=== PATIENT | male | born 1995 | race Caucasian/White ===

== ENCOUNTER 2017-12-16 10:44 | Inpatient (IN) | payer OTHER ==
[2017-12-16 11:52] VITALS: BMI 25.7
--- NOTE | 2017-12-16 13:09 | HP ---
COWS - Scale Resting Pulse: 1= [place] 81-100 Sweatin= Chills/Flushing Restless Observation: 1= Difficult to Sit Still Pupil Size: 1= Pupils >than Normal Bone or Joint Aches: 2= Severe Diffuse Aches Runny Nose/ Eye Tearin= Runny Nose/Eyes GI Upset > 30mins: 2= Nausea/Diarrhea Tremor Observation: 2= Slight Tremor Visible Yawning Observation: 2= >3x During Session Anxiety or Irritability: 2=Irritable/Anxious Goose Flesh Skin: 0=Smooth Skin COWS Score: 16 Admission ROS S - HPI Chief Complaint: withdrawal sx opioid Allergies/Adverse Reactions: Allergies Allergy/AdvReac Type Severity Reaction Status Date / Time No Known Allergies Allergy Verified 12/16/17 13:13 History of Present Illness: 22 years old male first detox admission for opioid nicotine dependence has anxiety and is admitted to detox Exam Limitations: No Limitations - Ebola screening Have you traveled outside of the country in the last 21 days: No Have you had contact with anyone from an Ebola affected area: No Have you been sick,other than usual withdrawal symptoms: No Do you have a fever: No - Review of Systems Constitutional: Changes in sleep, Weight Stable EENT: reports: Nose Congestion Respiratory: reports: No Symptoms reported Cardiac: reports: No Symptoms Reported GI: reports: Nausea, Poor Fluid Intake, Abdominal cramping : reports: No Symptoms Reported Musculoskeletal: reports: Back Pain, Joint Pain, Neck Pain Integumentary: reports: No Symptoms Reported Neuro: reports: Tremors Endocrine: reports: No Symptoms Reported Hematology: reports: No Symptoms Reported Psychiatric: reports: Judgement Intact, Orientated x3, Depressed Other Systems: Reviewed and Negative Patient History - Patient Medical History Hx Anemia: No Hx Asthma: No Hx Chronic Obstructive Pulmonary Disease (COPD): No Hx Cancer: No Hx Cardiac Disorders: No Hx Congestive Heart Failure: No Hx Hypertension: No Hx Hypercholesterolemia: No Hx Pacemaker: No HX Cerebrovascular Accident: No Hx Seizures: No Hx Dementia: No Hx Diabetes: No Hx Gastrointestinal Disorders: No Hx Liver Disease: No Hx Genitourinary Disorders: No Hx Sexually Transmitted Disorders: No Hx Renal Disease (ESRD): No Hx Thyroid Disease: No Hx Human Immunodeficiency Virus (HIV): No Hx Hepatitis C: No Hx Depression: Yes Hx Suicide Attempt: No Hx Bipolar Disorder: No Hx Schizophrenia: No - Patient Surgical History Past Surgical History: No - PPD History Previous Implant?: Yes Documented Results: Negative w/o proof Implanted On Prior R Admission?: No PPD to be Administered?: Yes - Smoking Cessation Smoking history: Current every day smoker Have you smoked in the past 12 months: Yes Aproximately how many cigarettes per day: 5 Cigars Per Day: 0 Hx Chewing Tobacco Use: No Initiated information on smoking cessation: Yes 'Breaking Loose' booklet given: 12/16/17 - Substance & Tx. History Hx Alcohol Use: No Hx Substance Use: Yes Substance Use Type: Cocaine, Marijuana, Opiates Hx Substance Use Treatment: No (first detox) Admission Physical Exam [facility] - Vital Signs Vital Signs: Vital Signs - 24 hr 12/16/17 11:49 Temperature 97.6 F Pulse Rate 90 Respiratory 20 Rate Blood Pressure 126/86 - Physical General Appearance: Yes: Appropriately Dressed, Moderate Distress, Tremorous, Irritable, Sweating, Anxious HEENTM: Yes: Hearing grossly Normal, Normocephalic, Normal Voice Respiratory: Yes: Chest Non-Tender, Lungs Clear, Normal Breath Sounds, No Respiratory Distress, No Accessory Muscle Use Neck: Yes: Supple, Trachea in good position Breast: Yes: Breasts Symetrical Cardiology: Yes: Regular Rhythm, S1, S2, Tachycardia Abdominal: Yes: Non Tender, Flat, Increased Bowel Sounds Genitourinary: Yes: Within Normal Limits Back: Yes: Normal Inspection Musculoskeletal: Yes: full range of Motion, Gait Steady, Back pain, Muscle Pain Extremities: Yes: Normal Inspection, Normal Range of Motion, Non-Tender, Tremors Neurological: Yes: Fully Oriented, Alert, Motor Strength 5/5, Normal Response, Depressed Affect Integumentary: Yes: Warm Lymphatic: Yes: Within Normal Limits - Diagnostic (1) Opioid dependence with withdrawal Current Visit: Yes Status: Acute (2) Nicotine dependence Current Visit: Yes Status: Acute Qualifiers: Nicotine product type: cigarettes Substance use status: in withdrawal Qualified Code(s): F17.213 - Nicotine dependence, cigarettes, with withdrawal (3) Anxiety about health Current Visit: Yes Status: Suspected BHS Breath Alcohol Content Breath Alcohol Content: 0 Urine Drug Screen - Results Drug Screen Negative: No Urine Drug Screen Results: THC-Marijuana, ADELINA-Cocaine, OPI-Opiates
[2017-12-16] MEDS ORDERED: MAGNESIUM CITRATE 300 ML BOTTLE PO PRN (13:21)
[2017-12-16] MEDS ORDERED: MAG HYDROX/AL HYDROX/SIMETH 30 ML UNIT-DOSE CUP PO PRN (13:21)
[2017-12-16] MEDS ORDERED: ACETAMINOPHEN 325 MG TABLET (FP) PO PRN (13:21)
[2017-12-16] MEDS ORDERED: MENTHOL/PHENOL 1 EACH UD MM PRN (13:21)
[2017-12-16] MEDS ORDERED: MAGNESIUM HYDROX 2400MG/30ML ORAL SUSPENSION 30 ML CUP PO PRN (13:21)
[2017-12-16] MEDS ORDERED: LOPERAMIDE HCL 2 MG CAPSULE PO PRN (13:21)
[2017-12-16] MEDS ORDERED: IBUPROFEN 400 MG TABLET (FP) PO PRN (13:21)
[2017-12-16] MEDS ORDERED: P-EPHED 60MG/TRIPROLIDI 2.5MG TABLET PO PRN (13:21)
[2017-12-16] MEDS ORDERED: guaiFENesin/D-METHORPHAN HB 10 ML UNIT-DOSE CUPS PO PRN (13:21)
[2017-12-16] MEDS ORDERED: METHADONE HCL 10 MG TABLET (FOR DETOX USE ONLY) PO ONE ×2 (14:45→23:00)
[2017-12-16] MEDS: diazePAM 5 MG TABLET PO PRN ×2 (14:48→20:01)
[2017-12-16] MEDS: NICOTINE 14 MG/24 HOURS TOPICAL PATCH TD SCH (14:48)
--- NOTE | 2017-12-16 17:37 | CONSULT ---
[facility] Psychiatric Consult - Data Date of interview: 12/16/17 Admission source: [facility] Identifying data: First admission to [facility] for this 22 y/o male seeking detox treatment on for opiod,cocaine and cannabis dependence.Patient is ,a father of two,homeless,unemployed deprived of any source of income and supported by relatives. Substance Abuse History: Confirmed by patient in this interview.Mr Robin reports continuous use of marihuana,cocaine and opiates. [facility] report : Smoking history: Current every day smoker. Have you smoked in the past 12 months: Yes. Aproximately how many cigarettes per day: 5. Cigars Per Day: 0. Hx Chewing Tobacco Use: No. Initiated information on smoking cessation: Yes. 'Breaking Loose' booklet given: 12/16/17. - Substance & Tx. History. Hx Alcohol Use: No. Hx Substance Use: Yes. Substance Use Type: Cocaine, Marijuana, Opiates. Hx Substance Use Treatment: No (first detox) Medical History: Patient endorses good general health. Psychiatric History: Patient denies. Physical/Sexual Abuse/Trauma History: Patient denies. Additional Comment: Urine Drug Screen Results: THC-Marijuana, ADELINA-Cocaine, OPI- Opiates.Noted. Mental Status Exam - Mental Status Exam Alert and Oriented to: Time, Place, Person Cognitive Function: Good Patient Appearance: Well Groomed Mood: Withdrawn, Anxious, Hopeful Affect: Mood Congruent Patient Behavior: Fatigued, Cooperative Speech Pattern: Clear (azeri speaking) Voice Loudness: Normal Thought Process: Intact, Goal Oriented Thought Disorder: Not Present Hallucinations: Denies Suicidal Ideation: Denies Homicidal Ideation: Denies Insight/Judgement: Poor Sleep: Poorly, Difficulty falling asleep Appetite: Good Muscle strength/Tone: Normal Gait/Station: Normal Psychiatric Findings - Problem List (Barre 1, 2,3) (1) Opioid dependence with withdrawal Current Visit: Yes Status: Acute (2) Cocaine dependence Current Visit: Yes Status: Acute Qualifiers: Substance use status: uncomplicated Qualified Code(s): F14.20 - Cocaine dependence, uncomplicated (3) Cannabis dependence Current Visit: Yes Status: Acute (4) Nicotine dependence Current Visit: Yes Status: Acute Qualifiers: Nicotine product type: cigarettes Substance use status: in withdrawal Qualified Code(s): F17.213 - Nicotine dependence, cigarettes, with withdrawal (5) Insomnia Current Visit: Yes Status: Acute Qualifiers: Insomnia type: unspecified Qualified Code(s): G47.00 - Insomnia, unspecified - Initial Treatment Plan Initial Treatment Plan: Psychoeducation.Sleep hygiene.Detoxification in progress.Ambien 10 mg po hs prn.Side effects/benefits discussed with patient.Consent (verbal) given.Observation.
[2017-12-16 18:35] LABS: URINE APPEARANCE CLEAR; URINE BILIRUBIN NEGATIVE (<2.0 mg/dL); URINE COLOR DKYELLOW; URINE GLUCOSE (UA) NEGATIVE (NEGATIVE); URINE KETONE NEGATIVE (NEGATIVE); URINE LEUK ESTERASE NEGATIVE (NEGATIVE); URINE NITRITE NEGATIVE (NEGATIVE); URINE PROTEIN NEGATIVE (NEGATIVE); URINE UROBILINOGEN NEGATIVE mg/dL (0.2-1.0)
[2017-12-16] MEDS: THIAMINE HCL 100 MG TABLET (FP) PO SCH (22:01)
[2017-12-16] MEDS: MELATONIN 5 MG TABLETS PO PRN (22:02)
[2017-12-17] MEDS: diazePAM 5 MG TABLET PO PRN ×5 (06:01→23:39)
[2017-12-17 09:56] LABS: HEMATOCRIT 42.8 % (35.4-49); HEMOGLOBIN 14.1 GM/dL (11.7-16.9); MCHC 32.9 g/dl (32.0-35.9); MEAN PLT VOLUME 8.9 fl (7.5-11.1); PLATELET COUNT 255 K/MM3 (134-434); RBC 5.04 M/mm3 (4.00-5.60); WHITE BLOOD COUNT 7.6 K/mm3 (4.0-10.0)
[2017-12-17] MEDS ORDERED: METHADONE HCL 10 MG TABLET (FOR DETOX USE ONLY) PO ONE (10:00)
[2017-12-17] MEDS: PRENATAL VITAMINS W/ FOLIC ACID TABLET (FP) PO SCH (10:02)
[2017-12-17] MEDS: NICOTINE 14 MG/24 HOURS TOPICAL PATCH TD SCH (10:02)
--- NOTE | 2017-12-17 10:11 | PN ---
S COWS - Scale Resting Pulse: 1= [place] 81-100 Sweatin= Chills/Flushing Restless Observation: 3= Extraneous Movement Pupil Size: 0= Normal to Room Light Bone or Joint Aches: 4=Acute Joint/Muscle Pain Runny Nose/ Eye Tearin= None GI Upset > 30mins: 0= None Tremor Observation of Outstretched Hands: 1= Tremor Exline, Not Seen Yawning Observation: 1= 1-2x During Session Anxiety or Irritability: 1=Feels Anxious/Irritable Goose Flesh Skin: 0=Smooth Skin COWS Score: 12 S Progress Note (SOAP) Subjective: ANXIETY,SWEATS,FATIGUE. Objective: 12/17/17 10:11 Vital Signs Temperature 96.6 F L 12/17/17 09:12 Pulse Rate 89 12/17/17 09:12 Respiratory Rate 16 12/17/17 09:12 Blood Pressure 114/74 12/17/17 09:12 O2 Sat by Pulse Oximetry (%) Laboratory Last Values WBC 7.6 K/mm3 (4.0-10.0) 12/17/17 06:00 RBC 5.04 M/mm3 (4.00-5.60) 12/17/17 06:00 Hgb 14.1 GM/dL (11.7-16.9) 12/17/17 06:00 Hct 42.8 % (35.4-49) 12/17/17 06:00 MCV 85.0 fl (80-96) 12/17/17 06:00 MCH 28.0 pg (25.7-33.7) 12/17/17 06:00 MCHC 32.9 g/dl (32.0-35.9) 12/17/17 06:00 RDW 15.0 % (11.9-15.9) 12/17/17 06:00 Plt Count 255 K/MM3 (134-434) 12/17/17 06:00 MPV 8.9 fl (7.5-11.1) 12/17/17 06:00 Urine Color Dkyellow 12/16/17 15:00 Urine Appearance Clear 12/16/17 15:00 Urine pH 5.0 (5.0-8.0) 12/16/17 15:00 Ur Specific [place] 1.021 (1.001-1.035) 12/16/17 15:00 Urine Protein Negative (NEGATIVE) 12/16/17 15:00 Urine Glucose (UA) Negative (NEGATIVE) 12/16/17 15:00 Urine Ketones Negative (NEGATIVE) 12/16/17 15:00 Urine Blood Negative (NEGATIVE) 12/16/17 15:00 Urine Nitrite Negative (NEGATIVE) 12/16/17 15:00 Urine Bilirubin Negative (<2.0 mg/dL) 12/16/17 15:00 Urine Urobilinogen Negative mg/dL (0.2-1.0) 12/16/17 15:00 Ur Leukocyte Esterase Negative (NEGATIVE) 12/16/17 15:00 Assessment: 12/17/17 10:11 WITHDRAWAL SX Plan: CONTINUE DETOX
[2017-12-17 10:39] LABS: ANION GAP 10 (8-16); BLOOD UREA NITROGEN 9 mg/dL (7-18); CALCIUM 9.4 mg/dL (8.5-10.1); CHLORIDE 103 mmol/L (98-107); CO2 29 mmol/L (21-32); GLUCOSE,RANDOM 83 mg/dL (74-106); POTASSIUM 4.4 mmol/L (3.5-5.1); SGOT/AST 36 U/L (15-37); SGPT/ALT 36 U/L (12-78); SODIUM 142 mmol/L (136-145)
[2017-12-17 10:40] LABS: ALK PHOS 85 U/L (45-117); BILIRUBIN,TOTAL 0.5 mg/dL (0.2-1.0); TOT PROT 7.2 g/dl (6.4-8.2)
--- NOTE | 2017-12-17 11:32 | EKG ---
Test Reason : Blood Pressure : / mmHG Vent. Rate : 081 BPM Atrial Rate : 081 BPM P-R Int : 158 ms QRS Dur : 090 ms QT Int : 366 ms P-R-T Axes : 072 065 053 degrees QTc Int : 425 ms NORMAL SINUS RHYTHM WITH SINUS ARRHYTHMIA NORMAL ECG NO PREVIOUS ECGS AVAILABLE Confirmed by THADDEUS MORATAYA, RENÉ ([id number]) on 12/17/2017 11:32:00 AM Referred By: Confirmed By:RENÉ TRAVIS MD
[2017-12-17] MEDS: THIAMINE HCL 100 MG TABLET (FP) PO SCH (22:11)
[2017-12-18] MEDS: PRENATAL VITAMINS W/ FOLIC ACID TABLET (FP) PO SCH (09:39)
[2017-12-18] MEDS: diazePAM 5 MG TABLET PO PRN ×3 (09:39→18:54)
[2017-12-18] MEDS: NICOTINE 14 MG/24 HOURS TOPICAL PATCH TD SCH (09:40)
[2017-12-18] MEDS ORDERED: METHADONE HCL 5 MG TABLET (FOR DETOX USE ONLY) PO ONE (10:00)
--- NOTE | 2017-12-18 10:13 | PN ---
BHS COWS - Scale Resting Pulse: 1= [place] 81-100 Sweatin=Flushed/Facial Moisture Restless Observation: 3= Extraneous Movement Pupil Size: 2= Moderately Dilated Bone or Joint Aches: 0= None Runny Nose/ Eye Tearin= None GI Upset > 30mins: 0= None Tremor Observation of Outstretched Hands: 2= Slight Tremor Visible Yawning Observation: 0= None Anxiety or Irritability: 1=Feels Anxious/Irritable Goose Flesh Skin: 0=Smooth Skin COWS Score: 11 BHS Progress Note (SOAP) Subjective: SLIGHT ANXIETY,SWEATS,FATIGUE. DETOX PROCEEDING WELL. PT SEEN WHILE LYING IN BED, NAD. Objective: 12/18/17 10:15 Vital Signs Temperature 95.3 F L 12/18/17 09:51 Pulse Rate 89 12/18/17 09:51 Respiratory Rate 20 12/18/17 09:51 Blood Pressure 105/66 12/18/17 09:51 O2 Sat by Pulse Oximetry (%) Laboratory Tests 12/16/17 12/16/17 12/17/17 06:00 15:00 06:00 WBC 7.6 RBC 5.04 Hgb 14.1 Hct 42.8 MCV 85.0 MCH 28.0 MCHC 32.9 RDW 15.0 Plt Count 255 MPV 8.9 Sodium Potassium Chloride Carbon Dioxide Anion Gap BUN Creatinine Creat Clearance w eGFR Random Glucose Calcium Total Bilirubin AST ALT Alkaline Phosphatase Total Protein Albumin Urine Color Dkyellow Urine Appearance Clear Urine pH 5.0 Ur Specific [place] 1.021 Urine Protein Negative Urine Glucose (UA) Negative Urine Ketones Negative Urine Blood Negative Urine Nitrite Negative Urine Bilirubin Negative Urine Urobilinogen Negative Ur Leukocyte Esterase Negative RPR Titer HIV 1&2 Antibody Screen Negative HIV P24 Antigen Negative 12/17/17 12/17/17 06:00 06:00 WBC RBC Hgb Hct MCV MCH MCHC RDW Plt Count MPV Sodium 142 Potassium 4.4 Chloride 103 Carbon Dioxide 29 Anion Gap 10 BUN 9 Creatinine 1.0 Creat Clearance w eGFR > 60 Random Glucose 83 Calcium 9.4 Total Bilirubin 0.5 AST 36 ALT 36 Alkaline Phosphatase 85 Total Protein 7.2 Albumin 4.0 Urine Color Urine Appearance Urine pH Ur Specific [place] Urine Protein Urine Glucose (UA) Urine Ketones Urine Blood Urine Nitrite Urine Bilirubin Urine Urobilinogen Ur Leukocyte Esterase RPR Titer Nonreactive HIV 1&2 Antibody Screen HIV P24 Antigen Assessment: 12/18/17 10:16 WITHDRAWAL SX Plan: CONTINUE DETOX
[2017-12-18] MEDS: NICOTINE POLACRILEX 2 MG GUM BC PRN (19:10)
[2017-12-18] MEDS: THIAMINE HCL 100 MG TABLET (FP) PO SCH (22:05)
[2017-12-18] MEDS: MELATONIN 5 MG TABLETS PO PRN (22:05)
[2017-12-19] MEDS: diazePAM 5 MG TABLET PO PRN ×3 (00:13→09:30)
[2017-12-19] MEDS ORDERED: METHADONE HCL 5 MG TABLET (FOR DETOX USE ONLY) PO ONE (10:00)
[2017-12-19] MEDS: PRENATAL VITAMINS W/ FOLIC ACID TABLET (FP) PO SCH (10:06)
[2017-12-19] MEDS: NICOTINE 14 MG/24 HOURS TOPICAL PATCH TD SCH (10:06)
--- NOTE | 2017-12-19 13:24 | PN ---
BHS Progress Note (SOAP) Subjective: Sweating, Fatigue, Anxious. Objective: PATIENT A & O X 3, OBSERVED AMBULATING ON UNIT. NO ACUTE DISTRESS. 12/19/17 13:23 Vital Signs Temperature 96.6 F L 12/19/17 09:13 Pulse Rate 83 12/19/17 09:13 Respiratory Rate 18 12/19/17 09:13 Blood Pressure 117/74 12/19/17 09:13 O2 Sat by Pulse Oximetry (%) Laboratory Tests 12/16/17 12/16/17 12/17/17 06:00 15:00 06:00 WBC 7.6 RBC 5.04 Hgb 14.1 Hct 42.8 MCV 85.0 MCH 28.0 MCHC 32.9 RDW 15.0 Plt Count 255 MPV 8.9 Sodium Potassium Chloride Carbon Dioxide Anion Gap BUN Creatinine Creat Clearance w eGFR Random Glucose Calcium Total Bilirubin AST ALT Alkaline Phosphatase Total Protein Albumin Urine Color Dkyellow Urine Appearance Clear Urine pH 5.0 Ur Specific [place] 1.021 Urine Protein Negative Urine Glucose (UA) Negative Urine Ketones Negative Urine Blood Negative Urine Nitrite Negative Urine Bilirubin Negative Urine Urobilinogen Negative Ur Leukocyte Esterase Negative RPR Titer HIV 1&2 Antibody Screen Negative HIV P24 Antigen Negative 12/17/17 12/17/17 06:00 06:00 WBC RBC Hgb Hct MCV MCH MCHC RDW Plt Count MPV Sodium 142 Potassium 4.4 Chloride 103 Carbon Dioxide 29 Anion Gap 10 BUN 9 Creatinine 1.0 Creat Clearance w eGFR > 60 Random Glucose 83 Calcium 9.4 Total Bilirubin 0.5 AST 36 ALT 36 Alkaline Phosphatase 85 Total Protein 7.2 Albumin 4.0 Urine Color Urine Appearance Urine pH Ur Specific [place] Urine Protein Urine Glucose (UA) Urine Ketones Urine Blood Urine Nitrite Urine Bilirubin Urine Urobilinogen Ur Leukocyte Esterase RPR Titer Nonreactive HIV 1&2 Antibody Screen HIV P24 Antigen LABS NOTED. Assessment: 12/19/17 13:24 WITHDRAWAL SYMPTOMS. Plan: CONTINUE DETOX.
[2017-12-19] MEDS ORDERED: ONDANSETRON 4 MG TABLET PO ONE (17:40)
--- NOTE | 2017-12-19 17:42 | PN ---
MARCIA Progress Note Note: Patient reportedly with one episode of nausea and vomiting, zofran 4mg PO x 1 dose ordered.
[2017-12-19] MEDS ORDERED: ONDANSETRON *ODT* 4 MG TABLET SL ONE (18:00)
[2017-12-19] MEDS: THIAMINE HCL 100 MG TABLET (FP) PO SCH (21:59)
[2017-12-19] MEDS: ZOLPIDEM TARTRATE 5 MG TABLET PO PRN (22:00)
[2017-12-19] MEDS: MELATONIN 5 MG TABLETS PO PRN (23:32)
[2017-12-20] MEDS ORDERED: METHADONE HCL 10 MG TABLET (FOR DETOX USE ONLY) PO ONE (10:00)
[2017-12-20] MEDS: PRENATAL VITAMINS W/ FOLIC ACID TABLET (FP) PO SCH (10:04)
[2017-12-20] MEDS: NICOTINE 14 MG/24 HOURS TOPICAL PATCH TD SCH (10:04)
--- NOTE | 2017-12-20 11:16 | PN ---
BHS Progress Note (SOAP) Subjective: ANXIETY,SWEATS,INTERMITTENT SLEEP. Objective: 12/20/17 11:15 Vital Signs 12/20/17 12/20/17 12/20/17 03:29 06:21 06:30 Temperature 96.8 F L Pulse Rate 73 Respiratory 18 18 18 Rate Blood Pressure 102/59 12/20/17 09:18 Temperature 96.5 F L Pulse Rate 76 Respiratory 18 Rate Blood Pressure 112/78 Laboratory Tests 12/16/17 12/16/17 12/17/17 06:00 15:00 06:00 WBC 7.6 RBC 5.04 Hgb 14.1 Hct 42.8 MCV 85.0 MCH 28.0 MCHC 32.9 RDW 15.0 Plt Count 255 MPV 8.9 Sodium Potassium Chloride Carbon Dioxide Anion Gap BUN Creatinine Creat Clearance w eGFR Random Glucose Calcium Total Bilirubin AST ALT Alkaline Phosphatase Total Protein Albumin Urine Color Dkyellow Urine Appearance Clear Urine pH 5.0 Ur Specific [place] 1.021 Urine Protein Negative Urine Glucose (UA) Negative Urine Ketones Negative Urine Blood Negative Urine Nitrite Negative Urine Bilirubin Negative Urine Urobilinogen Negative Ur Leukocyte Esterase Negative RPR Titer HIV 1&2 Antibody Screen Negative HIV P24 Antigen Negative 12/17/17 12/17/17 06:00 06:00 WBC RBC Hgb Hct MCV MCH MCHC RDW Plt Count MPV Sodium 142 Potassium 4.4 Chloride 103 Carbon Dioxide 29 Anion Gap 10 BUN 9 Creatinine 1.0 Creat Clearance w eGFR > 60 Random Glucose 83 Calcium 9.4 Total Bilirubin 0.5 AST 36 ALT 36 Alkaline Phosphatase 85 Total Protein 7.2 Albumin 4.0 Urine Color Urine Appearance Urine pH Ur Specific [place] Urine Protein Urine Glucose (UA) Urine Ketones Urine Blood Urine Nitrite Urine Bilirubin Urine Urobilinogen Ur Leukocyte Esterase RPR Titer Nonreactive HIV 1&2 Antibody Screen HIV P24 Antigen Assessment: 12/20/17 11:15 WITHDRAWAL SX Plan: CONTINUE DETOX
[2017-12-20] MEDS ORDERED: hydrOXYzine PAMOATE 50 MG CAPSULE (FP) PO PRN (12:00)
[2017-12-20] MEDS: ZOLPIDEM TARTRATE 5 MG TABLET PO PRN (22:07)
[2017-12-20] MEDS: THIAMINE HCL 100 MG TABLET (FP) PO SCH (22:07)
[2017-12-20] MEDS: NICOTINE POLACRILEX 2 MG GUM BC PRN (22:48)
[2017-12-21 05:58] VITALS: TEMP 96.1
[2017-12-21] MEDS ORDERED: METHADONE HCL 5 MG TABLET (FOR DETOX USE ONLY) PO ONE (06:00)
[2017-12-21 09:04] VITALS: BP 123/81; PULSE 95
[2017-12-21] MEDS: PRENATAL VITAMINS W/ FOLIC ACID TABLET (FP) PO SCH (10:10)
[2017-12-21] MEDS: NICOTINE 14 MG/24 HOURS TOPICAL PATCH TD SCH (10:10)
--- NOTE | 2017-12-21 10:54 | PN ---
S Progress Note (SOAP) Subjective: Denies any complaints States "I feel good" Objective: 12/21/17 10:53 A & O x 3 Gait steady, not in distress Vital Signs Temperature 96.1 F L 12/21/17 09:03 Pulse Rate 95 H 12/21/17 09:03 Respiratory Rate 20 12/21/17 09:03 Blood Pressure 123/81 12/21/17 09:03 O2 Sat by Pulse Oximetry (%) Assessment: 12/21/17 10:55 Detox successfully completed Plan: For discharge
--- NOTE | 2017-12-21 11:04 | DS ---
[facility] Detox Discharge Summary Admission Date: 12/16/17 Discharge Date: 12/21/17 - History Present History: Opioid Dependence Additional Comments: Pt for discharge Will do aftercare at [facility] - Physical Exam Results Vital Signs: Vital Signs Temperature 96.1 F L 12/21/17 09:03 Pulse Rate 95 H 12/21/17 09:03 Respiratory Rate 20 12/21/17 09:03 Blood Pressure 123/81 12/21/17 09:03 O2 Sat by Pulse Oximetry (%) Pertinent Admission Physical Exam Findings: Withdrawal sx - Treatment Hospital Course: Detox Protocol Followed, Detoxed Safely, Responded well, Discharged Condition Good, Rehab Referral Accepted Patient has Accepted a Rehab Referral to: [facility] - Medication Discharge Medications: Ambulatory Orders NK [No Known Home Medication] 12/16/17 - Diagnosis (1) Opioid dependence with withdrawal Current Visit: Yes Status: Acute (2) Nicotine dependence Current Visit: Yes Status: Acute Qualifiers: Nicotine product type: cigarettes Substance use status: in withdrawal Qualified Code(s): F17.213 - Nicotine dependence, cigarettes, with withdrawal (3) Cannabis dependence Current Visit: Yes Status: Acute (4) Cocaine dependence Current Visit: Yes Status: Acute Qualifiers: Substance use status: uncomplicated Qualified Code(s): F14.20 - Cocaine dependence, uncomplicated (5) Insomnia Current Visit: Yes Status: Acute Qualifiers: Insomnia type: unspecified Qualified Code(s): G47.00 - Insomnia, unspecified - AMA Did Patient Leave Against Medical Advice: No
== END 2017-12-21 12:00 | disposition home or self-care (01) | DRG 774 ==
LOC: YASAS 10:44 → Y3N 14:14
PROVIDERS: ADMIT Internal Medicine; ATTEND Internal Medicine
PROC: HZ2ZZZZ Detoxification Services for Substance Abuse Treatment (ICD-10-PCS; principal; 2017-12-16)
DX: F10.230 Alcohol dependence with withdrawal, uncomplicated (principal); F14.20 Cocaine dependence, uncomplicated; F12.20 Cannabis dependence, uncomplicated; F17.210 Nicotine dependence, cigarettes, uncomplicated; F32.9 Major depressive disorder, single episode, unspecified; F06.4 Anxiety disorder due to known physiological condition; G47.00 Insomnia, unspecified
CPT/HCPCS: 36415; 80053; 81003; 85027; 86593; 87389; 93005; 93010; Q0162

== ENCOUNTER 2018-10-16 10:35 | Inpatient (IN) | payer OTHER ==
[2018-10-16 11:15] VITALS: BMI 21.4
--- NOTE | 2018-10-16 11:16 | HP ---
COWS - Scale Resting Pulse: 2= [place] 101-120 Sweatin= Chills/Flushing Restless Observation: 3= Extraneous Movement Pupil Size: 1= Pupils >than Normal Bone or Joint Aches: 2= Severe Diffuse Aches Runny Nose/ Eye Tearin= Runny Nose/Eyes GI Upset > 30mins: 3= Vomiting/Diarrhea Tremor Observation: 2= Slight Tremor Visible Yawning Observation: 1= 1-2x During Session Anxiety or Irritability: 2=Irritable/Anxious Goose Flesh Skin: 0=Smooth Skin COWS Score: 19 CIWA Score - Admission Criteria OASAS Guidelines: Admission for Medically Managed Detox: Requires at least one of the followin. CIWA greater than 12 2. Seizures within the past 24 hours 3. Delirium tremens within the past 24 hours 4. Hallucinations within the past 24 hours 5. Acute intervention needed for co occurring medical disorder 6. Acute intervention needed for co occurring psychiatric disorder 7. Severe withdrawal that cannot be handled at a lower level of care (continued vomiting, continued diarrhea, abnormal vital signs) requiring intravenous medication and/or fluids 8. Admission ROS S - HPI Chief Complaint: i need help to stop using heroin and crack Allergies/Adverse Reactions: Allergies Allergy/AdvReac Type Severity Reaction Status Date / Time No Known Allergies Allergy Verified 10/16/18 11:47 History of Present Illness: this 22 years old male with heroin and crack dependence seeking detox, withdrawal symptom,had previous detox before, last admission [facility] to 12/21/17 nicotine dependence 1 pack no significant period of sobriety Exam Limitations: No Limitations - Ebola screening Have you traveled outside of the country in the last 21 days: No (N) Have you had contact with anyone from an Ebola affected area: No Do you have a fever: No - Review of Systems Constitutional: Chills, Loss of Appetite, Malaise, Night Sweats, Changes in sleep, Weakness EENT: reports: Tearing, Nose Congestion Respiratory: reports: No Symptoms reported Cardiac: reports: Palpitations GI: reports: Nausea, Poor Appetite, Vomiting, Abdominal cramping : reports: No Symptoms Reported Musculoskeletal: reports: Back Pain, Joint Pain, Joint Stiffness Integumentary: reports: Dryness Neuro: reports: Headache, Tremors Endocrine: reports: No Symptoms Reported Hematology: reports: No Symptoms Reported Psychiatric: reports: No Sypmtoms Reported, Judgement Intact, Mood/Affect Appropiate, Orientated x3 Other Systems: Reviewed and Negative Patient History - Patient Medical History Hx Anemia: No Hx Asthma: No Hx Chronic Obstructive Pulmonary Disease (COPD): No Hx Cancer: No Hx Cardiac Disorders: No Hx Congestive Heart Failure: No Hx Hypertension: No Hx Hypercholesterolemia: No Hx Pacemaker: No HX Cerebrovascular Accident: No Hx Seizures: No Hx Dementia: No Hx Diabetes: No Hx Gastrointestinal Disorders: No Hx Liver Disease: No Hx Genitourinary Disorders: No Hx Sexually Transmitted Disorders: No Hx Renal Disease (ESRD): No Hx Thyroid Disease: No Hx Human Immunodeficiency Virus (HIV): No (last 2018 negative) Hx Hepatitis C: No Hx Depression: Yes Hx Suicide Attempt: No Hx Bipolar Disorder: No Hx Schizophrenia: No Other Medical History: no sucicidal,no hmicidal - Patient Surgical History Past Surgical History: No Hx Neurologic Surgery: No Hx Cataract Extraction: No Hx Cardiac Surgery: No Hx Lung Surgery: No Hx Breast Surgery: No Hx Breast Biopsy: No Hx Abdominal Surgery: No Hx Appendectomy: No Hx Cholecystectomy: No Hx Genitourinary Surgery: No Hx Section: No Hx Orthopedic Surgery: No Anesthesia Reaction: No - PPD History Previous Implant?: Yes Documented Results: Negative w/proof Date: 12/18/17 Results: 0 mm PPD to be Administered?: No - Smoking Cessation Smoking history: Current every day smoker Have you smoked in the past 12 months: Yes Aproximately how many cigarettes per day: 20 Cigars Per Day: 0 Hx Chewing Tobacco Use: No Initiated information on smoking cessation: Yes 'Breaking Loose' booklet given: 10/16/18 - Substance & Tx. History Hx Alcohol Use: No Hx Substance Use: Yes Substance Use Type: Cocaine, Heroin Hx Substance Use Treatment: Yes ([facility] to 12/21/17) - Substances Abused Heroin Route: Inhalation Frequency: Daily Amount used: 20 bags Age of first use: 20 Date of Last Use: 10/16/18 Crack Route: Smoking Frequency: Daily Amount used: 200$ Age of first use: 20 Date of Last Use: 10/16/18 Non-Rx Methadone Route: Oral Frequency: 1-2 times per week Amount used: 40 mgs Age of first use: 22 Date of Last Use: 10/15/18 Family Disease History - Family Disease History Family History: Denies Admission Physical Exam [facility] - Vital Signs Vital Signs: Vital Signs Temperature 96.5 F L 10/16/18 11:12 Pulse Rate 113 H 10/16/18 11:12 Respiratory Rate 18 10/16/18 11:12 Blood Pressure 132/80 10/16/18 11:12 O2 Sat by Pulse Oximetry (%) - Physical General Appearance: Yes: Moderate Distress, Tremorous, Irritable, Sweating, Anxious HEENTM: Yes: Normal ENT Inspection, JAGDEEP, Pharynx Normal Respiratory: Yes: Lungs Clear, Normal Breath Sounds, No Respiratory Distress Neck: Yes: Within Normal Limits, Supple, Trachea in good position Breast: Yes: Within Normal Limits Cardiology: Yes: Tachycardia Abdominal: Yes: Normal Bowel Sounds, Non Tender, Soft, Organomegaly Genitourinary: Yes: Within Normal Limits Back: Yes: Within Normal Limits, Normal Inspection, Muscle Spasm Musculoskeletal: Yes: full range of Motion, Back pain, Joint Stiffness, Muscle Pain Extremities: Yes: Within Normal Limits, Normal Range of Motion, Tremors Neurological: Yes: rn telephonic II-XII NML intact, Fully Oriented, Alert, Motor Strength 5/5 Integumentary: Yes: Dry, Other (tattoo right forarm) Lymphatic: Yes: Within Normal Limits - Diagnostic (1) Opioid dependence with withdrawal Current Visit: No Status: Acute (2) Cocaine dependence Current Visit: No Status: Acute Qualifiers: Substance use status: uncomplicated Qualified Code(s): F14.20 - Cocaine dependence, uncomplicated (3) Insomnia Current Visit: No Status: Acute Qualifiers: Insomnia type: unspecified Qualified Code(s): G47.00 - Insomnia, unspecified (4) Nicotine dependence Current Visit: No Status: Acute Qualifiers: Nicotine product type: cigarettes Substance use status: in withdrawal Qualified Code(s): F17.213 - Nicotine dependence, cigarettes, with withdrawal Cleared for Admission [facility] - Detox or Rehab [facility] Level of Care: Medically Managed Detox Regimen/Protocol: Methadone [facility] Breath Alcohol Content Breath Alcohol Content: 0 Inpatient Rehab Admission - Rehab Decision to Admit Inpatient rehab admission?: No
[2018-10-16] MEDS ORDERED: LOPERAMIDE HCL 2 MG CAPSULE PO PRN (11:30)
[2018-10-16] MEDS ORDERED: MAGNESIUM HYDROX 2400MG/30ML ORAL SUSPENSION 30 ML CUP PO PRN (11:30)
[2018-10-16] MEDS ORDERED: MAG HYDROX/AL HYDROX/SIMETH 30 ML UNIT-DOSE CUP PO PRN (11:30)
[2018-10-16] MEDS ORDERED: MAGNESIUM CITRATE 300 ML BOTTLE PO PRN (11:30)
[2018-10-16] MEDS ORDERED: ACETAMINOPHEN 325 MG TABLET (FP) PO PRN (11:30)
[2018-10-16] MEDS ORDERED: MENTHOL/PHENOL 1 EACH UD MM PRN (11:30)
[2018-10-16] MEDS ORDERED: guaiFENesin/D-METHORPHAN HB 10 ML UNIT-DOSE CUPS PO PRN (11:30)
[2018-10-16] MEDS ORDERED: P-EPHED 60MG/TRIPROLIDI 2.5MG TABLET PO PRN (11:30)
[2018-10-16] MEDS ORDERED: METHADONE HCL 10 MG TABLET (FOR DETOX USE ONLY) PO ONE ×2 (12:30→23:00)
[2018-10-16] MEDS: diazePAM 5 MG TABLET PO PRN ×2 (13:54→22:31)
[2018-10-16] MEDS: cloNIDine HCL 0.1 MG TABLET PO SCH (22:31)
[2018-10-16] MEDS: THIAMINE HCL 100 MG TABLET (FP) PO SCH (22:41)
[2018-10-17] MEDS ORDERED: METHADONE HCL 10 MG TABLET (FOR DETOX USE ONLY) PO ONE (10:00)
[2018-10-17] MEDS: cloNIDine HCL 0.1 MG TABLET PO SCH ×2 (10:33→22:27)
[2018-10-17] MEDS: diazePAM 5 MG TABLET PO PRN ×2 (10:33→22:27)
[2018-10-17] MEDS: PRENATAL VITAMINS W/ FOLIC ACID TABLET (FP) PO SCH (10:33)
[2018-10-17 10:44] LABS: HEMATOCRIT 38.6 % (35.4-49); HEMOGLOBIN 12.9 GM/dL (11.7-16.9); MCH 27.8 pg (25.7-33.7); MCHC 33.5 g/dl (32.0-35.9); MEAN CELL VOLUME 83.1 fl (80-96); MEAN PLT VOLUME 9.3 fl (7.5-11.1); PLATELET COUNT 218 K/MM3 (134-434); RBC 4.65 M/mm3 (4.00-5.60); RDW 13.9 % (11.9-15.9); WHITE BLOOD COUNT 4.9 K/mm3 (4.0-10.0)
[2018-10-17 11:07] LABS: ALBUMIN 3.3 g/dl (3.4-5.0); ALK PHOS 66 U/L (45-117); ANION GAP 5 MMOL/L (8-16); BILIRUBIN,TOTAL 0.2 mg/dL (0.2-1); BLOOD UREA NITROGEN 19 mg/dL (7-18); CALCIUM 8.2 mg/dL (8.5-10.1); CHLORIDE 105 mmol/L (98-107); CO2 29 mmol/L (21-32); CREATININE 0.8 mg/dL (0.55-1.3); GLUCOSE,RANDOM 86 mg/dL (74-106); POTASSIUM 3.9 mmol/L (3.5-5.1); SGOT/AST 81 U/L (15-37); SGPT/ALT 82 U/L (13-61); SODIUM 140 mmol/L (136-145); TOT PROT 5.7 g/dl (6.4-8.2)
[2018-10-17] MEDS: IBUPROFEN 400 MG TABLET (FP) PO PRN (12:56)
--- NOTE | 2018-10-17 16:28 | PN ---
S COWS - Scale Resting Pulse: 0= [place] 80 or Below Sweatin= Chills/Flushing Restless Observation: 1= Difficult to Sit Still Pupil Size: 1= Pupils >than Normal Bone or Joint Aches: 2= Severe Diffuse Aches Runny Nose/ Eye Tearin= Runny Nose/Eyes GI Upset > 30mins: 2= Nausea/Diarrhea Tremor Observation of Outstretched Hands: 2= Slight Tremor Visible Yawning Observation: 1= 1-2x During Session Anxiety or Irritability: 2=Irritable/Anxious Goose Flesh Skin: 0=Smooth Skin COWS Score: 14 S Progress Note (SOAP) Subjective: body aches joints pain muscle cramping tremor sweating loose stoole Objective: 10/17/18 16:27 Vital Signs Temperature 96.3 F L 10/17/18 14:37 Pulse Rate 88 10/17/18 14:37 Respiratory Rate 18 10/17/18 14:37 Blood Pressure 106/63 10/17/18 14:37 O2 Sat by Pulse Oximetry (%) Laboratory Last Values WBC 4.9 K/mm3 (4.0-10.0) 10/17/18 07:35 RBC 4.65 M/mm3 (4.00-5.60) 10/17/18 07:35 Hgb 12.9 GM/dL (11.7-16.9) 10/17/18 07:35 Hct 38.6 % (35.4-49) 10/17/18 07:35 MCV 83.1 fl (80-96) 10/17/18 07:35 MCH 27.8 pg (25.7-33.7) 10/17/18 07:35 MCHC 33.5 g/dl (32.0-35.9) 10/17/18 07:35 RDW 13.9 % (11.9-15.9) 10/17/18 07:35 Plt Count 218 K/MM3 (134-434) 10/17/18 07:35 MPV 9.3 fl (7.5-11.1) 10/17/18 07:35 Sodium 140 mmol/L (136-145) 10/17/18 07:35 Potassium 3.9 mmol/L (3.5-5.1) 10/17/18 07:35 Chloride 105 mmol/L (98-107) 10/17/18 07:35 Carbon Dioxide 29 mmol/L (21-32) 10/17/18 07:35 Anion Gap 5 MMOL/L (8-16) L 10/17/18 07:35 BUN 19 mg/dL (7-18) H 10/17/18 07:35 Creatinine 0.8 mg/dL (0.55-1.3) 10/17/18 07:35 Creat Clearance w eGFR > 60 (>60) 10/17/18 07:35 Random Glucose 86 mg/dL (74-106) 10/17/18 07:35 Calcium 8.2 mg/dL (8.5-10.1) L 10/17/18 07:35 Total Bilirubin 0.2 mg/dL (0.2-1) 10/17/18 07:35 AST 81 U/L (15-37) H 10/17/18 07:35 ALT 82 U/L (13-61) H 10/17/18 07:35 Alkaline Phosphatase 66 U/L (45-117) 10/17/18 07:35 Total Protein 5.7 g/dl (6.4-8.2) L 10/17/18 07:35 Albumin 3.3 g/dl (3.4-5.0) L 10/17/18 07:35 RPR Titer Nonreactive (NONREACTIVE) 10/17/18 07:35 HIV 1&2 Antibody Screen Negative 10/17/18 07:35 HIV P24 Antigen Negative 10/17/18 07:35 lab noted Assessment: 10/17/18 16:27 opiate withdrawal sx Plan: continue detox
[2018-10-17] MEDS: MELATONIN 5 MG TABLETS PO PRN (22:27)
[2018-10-17] MEDS: THIAMINE HCL 100 MG TABLET (FP) PO SCH (22:27)
[2018-10-18] MEDS: CYCLOBENZAPRINE HCL 10 MG TABLET (FP) PO PRN ×2 (06:58→22:10)
[2018-10-18] MEDS: IBUPROFEN 400 MG TABLET (FP) PO PRN (06:58)
[2018-10-18] MEDS ORDERED: METHADONE HCL 5 MG TABLET (FOR DETOX USE ONLY) PO ONE (10:00)
[2018-10-18] MEDS: diazePAM 5 MG TABLET PO PRN (10:20)
[2018-10-18] MEDS: cloNIDine HCL 0.1 MG TABLET PO SCH ×2 (10:20→22:11)
[2018-10-18] MEDS: PRENATAL VITAMINS W/ FOLIC ACID TABLET (FP) PO SCH (10:20)
--- NOTE | 2018-10-18 10:56 | PN ---
BHS COWS - Scale Resting Pulse: 0= [place] 80 or Below Sweatin= Chills/Flushing Restless Observation: 0= Sits Still Pupil Size: 0= Normal to Room Light Bone or Joint Aches: 1= Mild Discomfort Runny Nose/ Eye Tearin= Nasal Congestion GI Upset > 30mins: 1= Stomach Cramp Tremor Observation of Outstretched Hands: 2= Slight Tremor Visible Yawning Observation: 2= >3x During Session Anxiety or Irritability: 2=Irritable/Anxious Goose Flesh Skin: 0=Smooth Skin COWS Score: 10 BHS Progress Note (SOAP) Subjective: body aches tremor sweating trouble sleep at night Objective: 10/18/18 10:56 Vital Signs Temperature 97.8 F 10/18/18 09:19 Pulse Rate 87 10/18/18 09:19 Respiratory Rate 18 10/18/18 09:19 Blood Pressure 109/70 10/18/18 09:19 O2 Sat by Pulse Oximetry (%) Laboratory Last Values WBC 4.9 K/mm3 (4.0-10.0) 10/17/18 07:35 RBC 4.65 M/mm3 (4.00-5.60) 10/17/18 07:35 Hgb 12.9 GM/dL (11.7-16.9) 10/17/18 07:35 Hct 38.6 % (35.4-49) 10/17/18 07:35 MCV 83.1 fl (80-96) 10/17/18 07:35 MCH 27.8 pg (25.7-33.7) 10/17/18 07:35 MCHC 33.5 g/dl (32.0-35.9) 10/17/18 07:35 RDW 13.9 % (11.9-15.9) 10/17/18 07:35 Plt Count 218 K/MM3 (134-434) 10/17/18 07:35 MPV 9.3 fl (7.5-11.1) 10/17/18 07:35 Sodium 140 mmol/L (136-145) 10/17/18 07:35 Potassium 3.9 mmol/L (3.5-5.1) 10/17/18 07:35 Chloride 105 mmol/L (98-107) 10/17/18 07:35 Carbon Dioxide 29 mmol/L (21-32) 10/17/18 07:35 Anion Gap 5 MMOL/L (8-16) L 10/17/18 07:35 BUN 19 mg/dL (7-18) H 10/17/18 07:35 Creatinine 0.8 mg/dL (0.55-1.3) 10/17/18 07:35 Creat Clearance w eGFR > 60 (>60) 10/17/18 07:35 Random Glucose 86 mg/dL (74-106) 10/17/18 07:35 Calcium 8.2 mg/dL (8.5-10.1) L 10/17/18 07:35 Total Bilirubin 0.2 mg/dL (0.2-1) 10/17/18 07:35 AST 81 U/L (15-37) H 10/17/18 07:35 ALT 82 U/L (13-61) H 10/17/18 07:35 Alkaline Phosphatase 66 U/L (45-117) 10/17/18 07:35 Total Protein 5.7 g/dl (6.4-8.2) L 10/17/18 07:35 Albumin 3.3 g/dl (3.4-5.0) L 10/17/18 07:35 RPR Titer Nonreactive (NONREACTIVE) 10/17/18 07:35 HIV 1&2 Antibody Screen Negative 10/17/18 07:35 HIV P24 Antigen Negative 10/17/18 07:35 lab noted Assessment: 10/18/18 10:56 opiate withdrawal sx 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
[2018-10-18] MEDS: THIAMINE HCL 100 MG TABLET (FP) PO SCH (22:09)
[2018-10-18] MEDS: MELATONIN 5 MG TABLETS PO PRN (22:10)
[2018-10-19] MEDS ORDERED: METHADONE HCL 5 MG TABLET (FOR DETOX USE ONLY) PO ONE (10:00)
[2018-10-19] MEDS: cloNIDine HCL 0.1 MG TABLET PO SCH ×2 (10:27→22:27)
[2018-10-19] MEDS: PRENATAL VITAMINS W/ FOLIC ACID TABLET (FP) PO SCH (10:28)
[2018-10-19] MEDS: diazePAM 5 MG TABLET PO PRN (10:29)
--- NOTE | 2018-10-19 11:27 | PN ---
BHS COWS - Scale Resting Pulse: 0= [place] 80 or Below Sweatin= Chills/Flushing Restless Observation: 1= Difficult to Sit Still Pupil Size: 0= Normal to Room Light Bone or Joint Aches: 1= Mild Discomfort Runny Nose/ Eye Tearin= Nasal Congestion GI Upset > 30mins: 0= None Tremor Observation of Outstretched Hands: 1= Tremor [place], Not Seen Yawning Observation: 1= 1-2x During Session Anxiety or Irritability: 1=Feels Anxious/Irritable Goose Flesh Skin: 0=Smooth Skin COWS Score: 7 BHS Progress Note (SOAP) Subjective: body aches tremor mild acid reflux trouble sleep at night Objective: 10/19/18 11:26 Vital Signs Temperature 97.0 F L 10/19/18 09:22 Pulse Rate 81 10/19/18 09:22 Respiratory Rate 18 10/19/18 09:22 Blood Pressure 110/66 10/19/18 09:22 O2 Sat by Pulse Oximetry (%) Laboratory Last Values WBC 4.9 K/mm3 (4.0-10.0) 10/17/18 07:35 RBC 4.65 M/mm3 (4.00-5.60) 10/17/18 07:35 Hgb 12.9 GM/dL (11.7-16.9) 10/17/18 07:35 Hct 38.6 % (35.4-49) 10/17/18 07:35 MCV 83.1 fl (80-96) 10/17/18 07:35 MCH 27.8 pg (25.7-33.7) 10/17/18 07:35 MCHC 33.5 g/dl (32.0-35.9) 10/17/18 07:35 RDW 13.9 % (11.9-15.9) 10/17/18 07:35 Plt Count 218 K/MM3 (134-434) 10/17/18 07:35 MPV 9.3 fl (7.5-11.1) 10/17/18 07:35 Sodium 140 mmol/L (136-145) 10/17/18 07:35 Potassium 3.9 mmol/L (3.5-5.1) 10/17/18 07:35 Chloride 105 mmol/L (98-107) 10/17/18 07:35 Carbon Dioxide 29 mmol/L (21-32) 10/17/18 07:35 Anion Gap 5 MMOL/L (8-16) L 10/17/18 07:35 BUN 19 mg/dL (7-18) H 10/17/18 07:35 Creatinine 0.8 mg/dL (0.55-1.3) 10/17/18 07:35 Creat Clearance w eGFR > 60 (>60) 10/17/18 07:35 Random Glucose 86 mg/dL (74-106) 10/17/18 07:35 Calcium 8.2 mg/dL (8.5-10.1) L 10/17/18 07:35 Total Bilirubin 0.2 mg/dL (0.2-1) 10/17/18 07:35 AST 81 U/L (15-37) H 10/17/18 07:35 ALT 82 U/L (13-61) H 10/17/18 07:35 Alkaline Phosphatase 66 U/L (45-117) 10/17/18 07:35 Total Protein 5.7 g/dl (6.4-8.2) L 10/17/18 07:35 Albumin 3.3 g/dl (3.4-5.0) L 10/17/18 07:35 RPR Titer Nonreactive (NONREACTIVE) 10/17/18 07:35 HIV 1&2 Antibody Screen Negative 10/17/18 07:35 HIV P24 Antigen Negative 10/17/18 07:35 lab noted Assessment: 10/19/18 11:26 opiate withdrawal sx Plan: continue detox
[2018-10-19] MEDS: hydrOXYzine PAMOATE 50 MG CAPSULE (FP) PO PRN ×2 (14:13→22:26)
[2018-10-19] MEDS: THIAMINE HCL 100 MG TABLET (FP) PO SCH (22:26)
[2018-10-20] MEDS ORDERED: METHADONE HCL 10 MG TABLET (FOR DETOX USE ONLY) PO ONE (10:00)
[2018-10-20] MEDS: PRENATAL VITAMINS W/ FOLIC ACID TABLET (FP) PO SCH (10:14)
[2018-10-20] MEDS: cloNIDine HCL 0.1 MG TABLET PO SCH ×2 (10:14→22:21)
--- NOTE | 2018-10-20 14:56 | PN ---
BHS COWS - Scale Resting Pulse: 0= [place] 80 or Below Sweatin= Chills/Flushing Restless Observation: 0= Sits Still Pupil Size: 0= Normal to Room Light Bone or Joint Aches: 1= Mild Discomfort Runny Nose/ Eye Tearin= Nasal Congestion GI Upset > 30mins: 1= Stomach Cramp Tremor Observation of Outstretched Hands: 0= None Yawning Observation: 0= None Anxiety or Irritability: 1=Feels Anxious/Irritable Goose Flesh Skin: 0=Smooth Skin COWS Score: 5 BHS Progress Note (SOAP) Subjective: feeling better less muscle pain mild body ache Objective: 10/20/18 14:57 Vital Signs Temperature 97.2 F L 10/20/18 13:47 Pulse Rate 100 H 10/20/18 13:47 Respiratory Rate 20 10/20/18 13:47 Blood Pressure 113/72 10/20/18 13:47 O2 Sat by Pulse Oximetry (%) Laboratory Last Values WBC 4.9 K/mm3 (4.0-10.0) 10/17/18 07:35 RBC 4.65 M/mm3 (4.00-5.60) 10/17/18 07:35 Hgb 12.9 GM/dL (11.7-16.9) 10/17/18 07:35 Hct 38.6 % (35.4-49) 10/17/18 07:35 MCV 83.1 fl (80-96) 10/17/18 07:35 MCH 27.8 pg (25.7-33.7) 10/17/18 07:35 MCHC 33.5 g/dl (32.0-35.9) 10/17/18 07:35 RDW 13.9 % (11.9-15.9) 10/17/18 07:35 Plt Count 218 K/MM3 (134-434) 10/17/18 07:35 MPV 9.3 fl (7.5-11.1) 10/17/18 07:35 Sodium 140 mmol/L (136-145) 10/17/18 07:35 Potassium 3.9 mmol/L (3.5-5.1) 10/17/18 07:35 Chloride 105 mmol/L (98-107) 10/17/18 07:35 Carbon Dioxide 29 mmol/L (21-32) 10/17/18 07:35 Anion Gap 5 MMOL/L (8-16) L 10/17/18 07:35 BUN 19 mg/dL (7-18) H 10/17/18 07:35 Creatinine 0.8 mg/dL (0.55-1.3) 10/17/18 07:35 Creat Clearance w eGFR > 60 (>60) 10/17/18 07:35 Random Glucose 86 mg/dL (74-106) 10/17/18 07:35 Calcium 8.2 mg/dL (8.5-10.1) L 10/17/18 07:35 Total Bilirubin 0.2 mg/dL (0.2-1) 10/17/18 07:35 AST 81 U/L (15-37) H 10/17/18 07:35 ALT 82 U/L (13-61) H 10/17/18 07:35 Alkaline Phosphatase 66 U/L (45-117) 10/17/18 07:35 Total Protein 5.7 g/dl (6.4-8.2) L 10/17/18 07:35 Albumin 3.3 g/dl (3.4-5.0) L 10/17/18 07:35 Urine Color Cancelled 10/18/18 12:50 Urine Appearance Cancelled 10/18/18 12:50 Urine pH Cancelled 10/18/18 12:50 Ur Specific [place] Cancelled 10/18/18 12:50 Urine Protein Cancelled 10/18/18 12:50 Urine Glucose (UA) Cancelled 10/18/18 12:50 Urine Ketones Cancelled 10/18/18 12:50 Urine Blood Cancelled 10/18/18 12:50 Urine Nitrite Cancelled 10/18/18 12:50 Urine Bilirubin Cancelled 10/18/18 12:50 Urine Urobilinogen Cancelled 10/18/18 12:50 Ur Leukocyte Esterase Cancelled 10/18/18 12:50 RPR Titer Nonreactive (NONREACTIVE) 10/17/18 07:35 HIV 1&2 Antibody Screen Negative 10/17/18 07:35 HIV P24 Antigen Negative 10/17/18 07:35 lab noted Assessment: 10/20/18 14:57 mild opiate withdrawal sx Plan: continue detox
[2018-10-20] MEDS: MELATONIN 5 MG TABLETS PO PRN (22:21)
[2018-10-20] MEDS: CYCLOBENZAPRINE HCL 10 MG TABLET (FP) PO PRN (22:23)
[2018-10-20] MEDS: THIAMINE HCL 100 MG TABLET (FP) PO SCH (22:34)
[2018-10-21] MEDS ORDERED: METHADONE HCL 5 MG TABLET (FOR DETOX USE ONLY) PO ONE (06:00)
[2018-10-21 06:10] VITALS: BP 99/64; PULSE 71; TEMP 96.6
--- NOTE | 2018-10-21 08:32 | DS ---
[facility] Detox Discharge Summary Admission Date: 10/16/18 Discharge Date: 10/21/18 - History Present History: Opioid Dependence Additional Comments: 22 years old male admitted on 10/16/18 for opiate withdrawal stabilization completed detox regimen aftercare [facility] - Physical Exam Results Vital Signs: Vital Signs Temperature 96.6 F L 10/21/18 06:09 Pulse Rate 71 10/21/18 06:09 Respiratory Rate 18 10/21/18 06:30 Blood Pressure 99/64 10/21/18 06:09 O2 Sat by Pulse Oximetry (%) Pertinent Admission Physical Exam Findings: opiate withdrawal sx Laboratory Last Values WBC 4.9 K/mm3 (4.0-10.0) 10/17/18 07:35 RBC 4.65 M/mm3 (4.00-5.60) 10/17/18 07:35 Hgb 12.9 GM/dL (11.7-16.9) 10/17/18 07:35 Hct 38.6 % (35.4-49) 10/17/18 07:35 MCV 83.1 fl (80-96) 10/17/18 07:35 MCH 27.8 pg (25.7-33.7) 10/17/18 07:35 MCHC 33.5 g/dl (32.0-35.9) 10/17/18 07:35 RDW 13.9 % (11.9-15.9) 10/17/18 07:35 Plt Count 218 K/MM3 (134-434) 10/17/18 07:35 MPV 9.3 fl (7.5-11.1) 10/17/18 07:35 Sodium 140 mmol/L (136-145) 10/17/18 07:35 Potassium 3.9 mmol/L (3.5-5.1) 10/17/18 07:35 Chloride 105 mmol/L (98-107) 10/17/18 07:35 Carbon Dioxide 29 mmol/L (21-32) 10/17/18 07:35 Anion Gap 5 MMOL/L (8-16) L 10/17/18 07:35 BUN 19 mg/dL (7-18) H 10/17/18 07:35 Creatinine 0.8 mg/dL (0.55-1.3) 10/17/18 07:35 Creat Clearance w eGFR > 60 (>60) 10/17/18 07:35 Random Glucose 86 mg/dL (74-106) 10/17/18 07:35 Calcium 8.2 mg/dL (8.5-10.1) L 10/17/18 07:35 Total Bilirubin 0.2 mg/dL (0.2-1) 10/17/18 07:35 AST 81 U/L (15-37) H 10/17/18 07:35 ALT 82 U/L (13-61) H 10/17/18 07:35 Alkaline Phosphatase 66 U/L (45-117) 10/17/18 07:35 Total Protein 5.7 g/dl (6.4-8.2) L 10/17/18 07:35 Albumin 3.3 g/dl (3.4-5.0) L 10/17/18 07:35 Urine Color Cancelled 10/18/18 12:50 Urine Appearance Cancelled 10/18/18 12:50 Urine pH Cancelled 10/18/18 12:50 Ur Specific [place] Cancelled 10/18/18 12:50 Urine Protein Cancelled 10/18/18 12:50 Urine Glucose (UA) Cancelled 10/18/18 12:50 Urine Ketones Cancelled 10/18/18 12:50 Urine Blood Cancelled 10/18/18 12:50 Urine Nitrite Cancelled 10/18/18 12:50 Urine Bilirubin Cancelled 10/18/18 12:50 Urine Urobilinogen Cancelled 10/18/18 12:50 Ur Leukocyte Esterase Cancelled 10/18/18 12:50 RPR Titer Nonreactive (NONREACTIVE) 10/17/18 07:35 HIV 1&2 Antibody Screen Negative 10/17/18 07:35 HIV P24 Antigen Negative 10/17/18 07:35 lab noted encourage medicinal plant picker narcan kit from the pharmacy - Treatment Hospital Course: Detox Protocol Followed, Detoxed Safely, Responded well, Discharged Condition Good, Rehab Referral Accepted Patient has Accepted a Rehab Referral to: [facility] [place] - Medication Discharge Medications: Ambulatory Orders Naloxone HCl [Narcan] 4 mg NS ASDIR PRN 10/18/18 - Diagnosis (1) Nicotine dependence Status: Acute Qualifiers: Nicotine product type: cigarettes Substance use status: in withdrawal Qualified Code(s): F17.213 - Nicotine dependence, cigarettes, with withdrawal (2) Opioid dependence with withdrawal Status: Acute - AMA Did Patient Leave Against Medical Advice: No
== END 2018-10-21 08:45 | disposition home or self-care (01) | DRG 773 ==
LOC: YASAS 10:35 → Y3N 11:46
PROVIDERS: ADMIT Surgery; ATTEND Surgery
PROC: HZ2ZZZZ Detoxification Services for Substance Abuse Treatment (ICD-10-PCS; principal; 2018-10-16)
DX: F11.23 Opioid dependence with withdrawal (principal); F14.20 Cocaine dependence, uncomplicated; F17.213 Nicotine dependence, cigarettes, with withdrawal; G47.00 Insomnia, unspecified
CPT/HCPCS: 36415; 80053; 81003; 85027; 86593; 87389; J0735

== ENCOUNTER 2019-01-19 10:11 | Inpatient (IN) | payer OTHER ==
[2019-01-19 12:43] VITALS: BMI 25.8
--- NOTE | 2019-01-19 14:07 | HP ---
COWS - Scale Resting Pulse: 0= [place] 80 or Below Sweatin= Chills/Flushing Restless Observation: 1= Difficult to Sit Still Pupil Size: 0= Normal to Room Light Bone or Joint Aches: 2= Severe Diffuse Aches Runny Nose/ Eye Tearin= Runny Nose/Eyes GI Upset > 30mins: 1= Stomach Cramp Tremor Observation: 2= Slight Tremor Visible Yawning Observation: 1= 1-2x During Session Anxiety or Irritability: 2=Irritable/Anxious Goose Flesh Skin: 3=Piloerection COWS Score: 15 CIWA Score - Admission Criteria [facility] Guidelines: Admission for Medically Managed Detox: Requires at least one of the followin. CIWA greater than 12 2. Seizures within the past 24 hours 3. Delirium tremens within the past 24 hours 4. Hallucinations within the past 24 hours 5. Acute intervention needed for co occurring medical disorder 6. Acute intervention needed for co occurring psychiatric disorder 7. Severe withdrawal that cannot be handled at a lower level of care (continued vomiting, continued diarrhea, abnormal vital signs) requiring intravenous medication and/or fluids 8. Admission ROS [facility] Chief Complaint: I am here for detox and need help. Allergies/Adverse Reactions: Allergies Allergy/AdvReac Type Severity Reaction Status Date / Time No Known Allergies Allergy Verified 01/19/19 12:36 History of Present Illness: pt is a 23yrold male with a history of opioid and cocaine dependence seeking detox for treatment. Exam Limitations: No Limitations - Ebola screening Have you traveled outside of the country in the last 21 days: No ([place]) Have you had contact with anyone from an Ebola affected area: No Do you have a fever: No - Review of Systems Constitutional: Chills, Night Sweats EENT: reports: No Symptoms Reported Respiratory: reports: No Symptoms reported Cardiac: reports: No Symptoms Reported GI: reports: Poor Fluid Intake : reports: No Symptoms Reported Musculoskeletal: reports: No Symptoms Reported Integumentary: reports: Sweating Neuro: reports: No Symptoms reported Endocrine: reports: No Symptoms Reported Hematology: reports: No Symptoms Reported Psychiatric: reports: Judgement Intact, Orientated x3, Agitated, Anxious Other Systems: Reviewed and Negative Patient History - Patient Medical History Hx Anemia: No Hx Asthma: No Hx Chronic Obstructive Pulmonary Disease (COPD): No Hx Cancer: No Hx Cardiac Disorders: No Hx Congestive Heart Failure: No Hx Hypertension: No Hx Hypercholesterolemia: No Hx Pacemaker: No HX Cerebrovascular Accident: No Hx Seizures: No Hx Dementia: No Hx Diabetes: No Hx Gastrointestinal Disorders: No Hx Liver Disease: No Hx Genitourinary Disorders: No Hx Sexually Transmitted Disorders: No Hx Renal Disease (ESRD): No Hx Thyroid Disease: No Hx Human Immunodeficiency Virus (HIV): No (last 2018 negative) Hx Hepatitis C: No Hx Depression: No Hx Suicide Attempt: No Hx Bipolar Disorder: No Hx Schizophrenia: No - Patient Surgical History Past Surgical History: No Hx Neurologic Surgery: No Hx Cataract Extraction: No Hx Cardiac Surgery: No Hx Lung Surgery: No Hx Breast Surgery: No Hx Breast Biopsy: No Hx Abdominal Surgery: No Hx Appendectomy: No Hx Cholecystectomy: No Hx Genitourinary Surgery: No Hx Section: No Hx Orthopedic Surgery: No Anesthesia Reaction: No - PPD History Previous Implant?: Yes Documented Results: Negative w/o proof PPD to be Administered?: Yes - Reproductive History Patient is a Female of Child Bearing Age (11 -55 yrs old): No - Smoking Cessation Smoking history: Current every day smoker Have you smoked in the past 12 months: Yes Aproximately how many cigarettes per day: 20 Cigars Per Day: 0 Hx Chewing Tobacco Use: No Initiated information on smoking cessation: Yes 'Breaking Loose' booklet given: 01/19/19 - Substance & Tx. History Hx Alcohol Use: No Hx Substance Use: Yes Substance Use Type: Cocaine, Heroin Hx Substance Use Treatment: Yes (last detox 10/2018) - Substances abused Cocaine Substance route: Inhalation Frequency: Daily Amount used: I GRAM Age of first use: 17 Date of last use: 01/18/19 Heroin Substance route: Inhalation Frequency: Daily Amount used: 3 BAGS Age of first use: 20 Date of last use: 01/18/19 Family Disease History - Family Disease History Family History: Denies Admission Physical Exam S - Vital Signs Vital Signs: Vital Signs - 24 hr 01/19/19 12:37 Temperature 97.6 F Pulse Rate 75 Respiratory 18 Rate Blood Pressure 115/78 - Physical General Appearance: Yes: Appropriately Dressed, Moderate Distress, Tremorous, Irritable, Sweating, Anxious HEENTM: Yes: Hearing grossly Normal, Normocephalic, Normal Voice, Nasal Congestion, Rhinorrhea Respiratory: Yes: Lungs Clear, Normal Breath Sounds, No Respiratory Distress Neck: Yes: No masses,lesions,Nodules Breast: Yes: Within Normal Limits Cardiology: Yes: Regular Rhythm, Regular Rate, S1, S2 Abdominal: Yes: Normal Bowel Sounds Genitourinary: Yes: Within Normal Limits Back: Yes: Normal Inspection Musculoskeletal: Yes: full range of Motion Extremities: Yes: Normal Capillary Refill, Normal Inspection, Tremors Neurological: Yes: Fully Oriented, Alert, Normal Response Integumentary: Yes: Normal Color, Diaphoresis Lymphatic: Yes: Within Normal Limits - Diagnostic (1) Cannabis dependence Current Visit: Yes Status: Chronic (2) Cocaine dependence Current Visit: Yes Status: Chronic Qualifiers: Substance use status: uncomplicated Qualified Code(s): F14.20 - Cocaine dependence, uncomplicated (3) Nicotine dependence Current Visit: Yes Status: Chronic Qualifiers: Nicotine product type: cigarettes Substance use status: uncomplicated Qualified Code(s): F17.210 - Nicotine dependence, cigarettes, uncomplicated (4) Opioid dependence with withdrawal Current Visit: Yes Status: Chronic Cleared for Admission [facility] - Detox or Rehab [facility] Level of Care: Medically Managed Detox Regimen/Protocol: Methadone Breathalyzer - Breathalyzer Breathalyzer: 0 Urine Drug Screen - Test Device Lot number: [id number] Expiration date: 10/14/20 - Control Is test valid?: Yes - Results Drug screen NEGATIVE: No Urine drug screen results: THC-Marijuana, ADELINA-Cocaine, MOP-Opiates Inpatient Rehab Admission - Rehab Decision to Admit Inpatient rehab admission?: No
[2019-01-19] MEDS ORDERED: BISMUTH SUBSALICYLATE 262 MG/15 ML BTL PO PRN (14:12)
[2019-01-19] MEDS ORDERED: IBUPROFEN 400 MG TABLET (FP) PO PRN (14:12)
[2019-01-19] MEDS ORDERED: ACETAMINOPHEN 325 MG TABLET (FP) PO PRN ×2 (14:12)
[2019-01-19] MEDS ORDERED: MAGNESIUM HYDROX 2400MG/30ML ORAL SUSPENSION 30 ML CUP PO PRN (14:12)
[2019-01-19] MEDS ORDERED: MENTHOL/PHENOL 1 EACH UD MM PRN (14:12)
[2019-01-19] MEDS ORDERED: hydrOXYzine PAMOATE 25 MG CAPSULE (FP) PO PRN (14:12)
[2019-01-19] MEDS ORDERED: MAG HYDROX/AL HYDROX/SIMETH 30 ML UNIT-DOSE CUP PO PRN (14:12)
[2019-01-19] MEDS ORDERED: MAGNESIUM CITRATE 300 ML BOTTLE PO PRN (14:12)
[2019-01-19] MEDS ORDERED: P-EPHED 60MG/TRIPROLIDI 2.5MG TABLET PO PRN (14:12)
[2019-01-19] MEDS ORDERED: METHOCARBAMOL 500 MG TABLET PO PRN (14:12)
[2019-01-19] MEDS ORDERED: ONDANSETRON *ODT* 4 MG TABLET SL PRN (14:12)
[2019-01-19] MEDS ORDERED: METHADONE HCL 10 MG TABLET (FOR DETOX USE ONLY) PO ONE ×4 (14:12→23:00)
[2019-01-19] MEDS ORDERED: cloNIDine HCL 0.1 MG TABLET PO PRN (14:20)
[2019-01-19 16:38] LABS: ALBUMIN 4.5 g/dl (3.4-5.0); BILIRUBIN,TOTAL 0.6 mg/dL (0.2-1); CALCIUM 9.9 mg/dL (8.5-10.1); POTASSIUM 4.6 mmol/L (3.5-5.1); TOT PROT 7.9 g/dl (6.4-8.2)
[2019-01-19 16:40] LABS: HEMATOCRIT 45.4 % (35.4-49); HEMOGLOBIN 14.5 GM/dL (11.7-16.9); MCH 27.1 pg (25.7-33.7); MCHC 32.1 g/dl (32.0-35.9); MEAN CELL VOLUME 84.5 fl (80-96); MEAN PLT VOLUME 8.9 fl (7.5-11.1); PLATELET COUNT 278 K/MM3 (134-434); RBC 5.37 M/mm3 (4.00-5.60); RDW 14.1 % (11.9-15.9); WHITE BLOOD COUNT 5.9 K/mm3 (4.0-10.0)
[2019-01-19] MEDS: cloNIDine HCL 0.1 MG TABLET PO PRN (22:17)
[2019-01-19] MEDS: MELATONIN 5 MG TABLETS PO PRN (22:17)
[2019-01-19] MEDS: THIAMINE HCL 100 MG TABLET (FP) PO SCH (22:18)
[2019-01-20] MEDS ORDERED: METHADONE HCL 10 MG TABLET (FOR DETOX USE ONLY) PO ONE (10:00)
[2019-01-20] MEDS ORDERED: METHADONE HCL 5 MG TABLET (FOR DETOX USE ONLY) PO ONE (10:00)
[2019-01-20] MEDS: diazePAM 5 MG TABLET PO PRN ×3 (10:38→22:09)
[2019-01-20] MEDS: NICOTINE 21 MG/24 HOURS TOPICAL PATCH TD SCH (10:38)
[2019-01-20] MEDS: PRENATAL VITAMINS W/ FOLIC ACID TABLET (FP) PO SCH (10:38)
--- NOTE | 2019-01-20 10:59 | PN ---
BHS COWS - Scale Resting Pulse: 0= [place] 80 or Below Sweatin= Chills/Flushing Restless Observation: 1= Difficult to Sit Still Pupil Size: 1= Pupils >than Normal Bone or Joint Aches: 2= Severe Diffuse Aches Runny Nose/ Eye Tearin= Runny Nose/Eyes GI Upset > 30mins: 2= Nausea/Diarrhea Tremor Observation of Outstretched Hands: 2= Slight Tremor Visible Yawning Observation: 1= 1-2x During Session Anxiety or Irritability: 2=Irritable/Anxious Goose Flesh Skin: 0=Smooth Skin COWS Score: 14 S Progress Note (SOAP) Subjective: alert,irritable,anxious,interrupted sleep,pain in the body and back Objective: 01/20/19 10:58 Vital Signs Temperature 98.1 F 01/20/19 09:16 Pulse Rate 72 01/20/19 09:16 Respiratory Rate 18 01/20/19 09:16 Blood Pressure 103/60 01/20/19 09:16 O2 Sat by Pulse Oximetry (%) 01/20/19 10:58 Laboratory Last Values WBC 5.9 K/mm3 (4.0-10.0) 01/19/19 14:30 RBC 5.37 M/mm3 (4.00-5.60) 01/19/19 14:30 Hgb 14.5 GM/dL (11.7-16.9) 01/19/19 14:30 Hct 45.4 % (35.4-49) D 01/19/19 14:30 MCV 84.5 fl (80-96) 01/19/19 14:30 MCH 27.1 pg (25.7-33.7) 01/19/19 14:30 MCHC 32.1 g/dl (32.0-35.9) 01/19/19 14:30 RDW 14.1 % (11.9-15.9) 01/19/19 14:30 Plt Count 278 K/MM3 (134-434) D 01/19/19 14:30 MPV 8.9 fl (7.5-11.1) 01/19/19 14:30 Sodium 139 mmol/L (136-145) 01/19/19 14:30 Potassium 4.6 mmol/L (3.5-5.1) 01/19/19 14:30 Chloride 103 mmol/L (98-107) 01/19/19 14:30 Carbon Dioxide 28 mmol/L (21-32) 01/19/19 14:30 Anion Gap 7 MMOL/L (8-16) L 01/19/19 14:30 BUN 14 mg/dL (7-18) 01/19/19 14:30 Creatinine 1.0 mg/dL (0.55-1.3) 01/19/19 14:30 Est GFR (CKD-EPI)AfAm 121.55 01/19/19 14:30 Est GFR (CKD-EPI)NonAf 104.88 01/19/19 14:30 Random Glucose 86 mg/dL (74-106) 01/19/19 14:30 Calcium 9.9 mg/dL (8.5-10.1) 01/19/19 14:30 Total Bilirubin 0.6 mg/dL (0.2-1) 01/19/19 14:30 AST 23 U/L (15-37) 01/19/19 14:30 ALT 41 U/L (13-61) 01/19/19 14:30 Alkaline Phosphatase 86 U/L (45-117) 01/19/19 14:30 Total Protein 7.9 g/dl (6.4-8.2) 01/19/19 14:30 Albumin 4.5 g/dl (3.4-5.0) 01/19/19 14:30 RPR Titer Nonreactive (NONREACTIVE) 01/19/19 14:30 Assessment: 01/20/19 10:58 withdrawal symptom Plan: continue detox
[2019-01-20] MEDS: cloNIDine HCL 0.1 MG TABLET PO PRN (22:11)
[2019-01-20] MEDS: THIAMINE HCL 100 MG TABLET (FP) PO SCH (22:11)
[2019-01-21] MEDS: MELATONIN 5 MG TABLETS PO PRN (00:34)
[2019-01-21] MEDS: diazePAM 5 MG TABLET PO PRN ×6 (02:25→23:46)
[2019-01-21] MEDS ORDERED: METHADONE HCL 10 MG TABLET (FOR DETOX USE ONLY) PO ONE ×2 (10:00)
--- NOTE | 2019-01-21 10:51 | PN ---
BHS COWS - Scale Resting Pulse: 0= [place] 80 or Below Sweatin=Flushed/Facial Moisture Restless Observation: 1= Difficult to Sit Still Pupil Size: 0= Normal to Room Light Bone or Joint Aches: 2= Severe Diffuse Aches Runny Nose/ Eye Tearin= Nasal Congestion GI Upset > 30mins: 0= None Tremor Observation of Outstretched Hands: 2= Slight Tremor Visible Yawning Observation: 2= >3x During Session Anxiety or Irritability: 2=Irritable/Anxious Goose Flesh Skin: 0=Smooth Skin COWS Score: 12 BHS Progress Note (SOAP) Subjective: agitation interrupted sleep body aches sweats anxiety Objective: 01/21/19 10:50 Vital Signs Temperature 96.3 F L 01/21/19 09:19 Pulse Rate 74 01/21/19 09:19 Respiratory Rate 18 01/21/19 09:19 Blood Pressure 105/67 01/21/19 09:19 O2 Sat by Pulse Oximetry (%) Laboratory Tests 01/19/19 01/19/19 01/19/19 14:30 14:30 14:30 WBC 5.9 RBC 5.37 Hgb 14.5 Hct 45.4 D MCV 84.5 MCH 27.1 MCHC 32.1 RDW 14.1 Plt Count 278 D MPV 8.9 Sodium 139 Potassium 4.6 Chloride 103 Carbon Dioxide 28 Anion Gap 7 L BUN 14 Creatinine 1.0 Est GFR (CKD-EPI)AfAm 121.55 Est GFR (CKD-EPI)NonAf 104.88 Random Glucose 86 Calcium 9.9 Total Bilirubin 0.6 AST 23 ALT 41 Alkaline Phosphatase 86 Total Protein 7.9 Albumin 4.5 RPR Titer Nonreactive labs noted aaox3 ambulating no acute distress Assessment: 01/21/19 10:50 withdrawal sx Plan: continue detox increase fluids
[2019-01-21] MEDS: PRENATAL VITAMINS W/ FOLIC ACID TABLET (FP) PO SCH (11:00)
[2019-01-21] MEDS: NICOTINE 21 MG/24 HOURS TOPICAL PATCH TD SCH (11:00)
[2019-01-21] MEDS: NICOTINE POLACRILEX 4 MG GUM BUC PRN (11:01)
[2019-01-21] MEDS: traZODone HCL 50 MG TABLET (FP) PO SCH (22:21)
[2019-01-21] MEDS: THIAMINE HCL 100 MG TABLET (FP) PO SCH (22:21)
[2019-01-22] MEDS ORDERED: METHADONE HCL 5 MG TABLET (FOR DETOX USE ONLY) PO ONE (06:00)
[2019-01-22] MEDS: diazePAM 5 MG TABLET PO PRN ×4 (07:52→22:46)
[2019-01-22] MEDS ORDERED: METHADONE HCL 10 MG TABLET (FOR DETOX USE ONLY) PO ONE (10:00)
[2019-01-22] MEDS: SULFAMETHOXAZOLE/TRIMETHOPRIM 800MG/160MG D.S. TABLET PO SCH ×2 (11:04→22:37)
[2019-01-22] MEDS: PRENATAL VITAMINS W/ FOLIC ACID TABLET (FP) PO SCH (11:04)
[2019-01-22] MEDS: NICOTINE 21 MG/24 HOURS TOPICAL PATCH TD SCH (11:05)
[2019-01-22] MEDS: NICOTINE POLACRILEX 4 MG GUM BUC PRN (11:05)
--- NOTE | 2019-01-22 12:14 | PN ---
[facility] COWS - Scale Resting Pulse: 0= [place] 80 or Below Sweatin= Chills/Flushing Restless Observation: 1= Difficult to Sit Still Pupil Size: 0= Normal to Room Light Bone or Joint Aches: 1= Mild Discomfort Runny Nose/ Eye Tearin= None GI Upset > 30mins: 0= None Tremor Observation of Outstretched Hands: 1= Tremor [place], Not Seen Yawning Observation: 1= 1-2x During Session Anxiety or Irritability: 2=Irritable/Anxious Goose Flesh Skin: 0=Smooth Skin COWS Score: 7 [facility] Progress Note (SOAP) Subjective: feeling better little anxiety Objective: 01/22/19 12:14 Vital Signs Temperature 97.2 F L 01/22/19 09:36 Pulse Rate 78 01/22/19 09:36 Respiratory Rate 16 01/22/19 09:36 Blood Pressure 120/60 01/22/19 09:36 O2 Sat by Pulse Oximetry (%) aaox3 ambulating no acute distress Assessment: 01/22/19 12:14 mild withdrawal sx Plan: continue detox increase fluids d/c in am
[2019-01-22] MEDS: THIAMINE HCL 100 MG TABLET (FP) PO SCH (22:37)
[2019-01-22] MEDS: traZODone HCL 50 MG TABLET (FP) PO SCH (22:37)
[2019-01-22] MEDS: MELATONIN 5 MG TABLETS PO PRN (22:38)
[2019-01-23] MEDS: diazePAM 5 MG TABLET PO PRN (03:03)
[2019-01-23] MEDS ORDERED: METHADONE HCL 5 MG TABLET (FOR DETOX USE ONLY) PO ONE (06:00)
[2019-01-23 09:22] VITALS: BP 115/72; PULSE 91; TEMP 97.5
[2019-01-23] MEDS: SULFAMETHOXAZOLE/TRIMETHOPRIM 800MG/160MG D.S. TABLET PO SCH (11:05)
[2019-01-23] MEDS: NICOTINE 21 MG/24 HOURS TOPICAL PATCH TD SCH (11:05)
[2019-01-23] MEDS: PRENATAL VITAMINS W/ FOLIC ACID TABLET (FP) PO SCH (11:05)
--- NOTE | 2019-01-23 11:15 | DS ---
[facility] Detox Discharge Summary Admission Date: 01/19/19 Discharge Date: 01/23/19 - History Present History: Cannabis Dependence, Cocaine Dependence, Opioid Dependence Additional Comments: Patient scheduled for discharge today. As per staff, patient is scheduled to go to [facility]. Patient told database report writer that he is not going to [facility] and that he will be going home because he doesn't need rehab. Patient is stable for discharge today and denies any complaints. Patient completed detox successfully. Instructed to follow up with his PCP within 1-2 weeks. Pertinent Past History: Opioid dependence Cocaine dependence Nicotine dependence Cannabis dependence - Physical Exam Results Vital Signs: Vital Signs Temperature 97.5 F L 01/23/19 09:21 Pulse Rate 91 H 01/23/19 09:21 Respiratory Rate 14 01/23/19 09:21 Blood Pressure 115/72 01/23/19 09:21 O2 Sat by Pulse Oximetry (%) Pertinent Admission Physical Exam Findings: Withdrawal symptoms Laboratory Tests 01/19/19 01/19/19 01/19/19 14:30 14:30 14:30 WBC 5.9 RBC 5.37 Hgb 14.5 Hct 45.4 D MCV 84.5 MCH 27.1 MCHC 32.1 RDW 14.1 Plt Count 278 D MPV 8.9 Sodium 139 Potassium 4.6 Chloride 103 Carbon Dioxide 28 Anion Gap 7 L BUN 14 Creatinine 1.0 Est GFR (CKD-EPI)AfAm 121.55 Est GFR (CKD-EPI)NonAf 104.88 Random Glucose 86 Calcium 9.9 Total Bilirubin 0.6 AST 23 ALT 41 Alkaline Phosphatase 86 Total Protein 7.9 Albumin 4.5 RPR Titer Nonreactive Labs reviewed - Treatment Hospital Course: Detox Protocol Followed, Detoxed Safely, Responded well, Discharged Condition Good - Medication Discharge Medications: Ambulatory Orders Sulfamethoxazole/Trimethoprim [Bactrim DS -] 1 each PO BID #28 tablet 01/22/19 - Diagnosis (1) Cannabis dependence Current Visit: Yes Status: Chronic (2) Cocaine dependence Current Visit: Yes Status: Chronic Qualifiers: Substance use status: uncomplicated Qualified Code(s): F14.20 - Cocaine dependence, uncomplicated (3) Nicotine dependence Current Visit: Yes Status: Chronic Qualifiers: Nicotine product type: cigarettes Substance use status: uncomplicated Qualified Code(s): F17.210 - Nicotine dependence, cigarettes, uncomplicated (4) Opioid dependence with withdrawal Current Visit: Yes Status: Chronic - AMA Did Patient Leave Against Medical Advice: No (Patient instructed to follow up with his PCP within 1-2 weeks)
== END 2019-01-23 12:39 | disposition home or self-care (01) | DRG 773 ==
LOC: YASAS 10:11 → Y6N 14:50
PROVIDERS: ADMIT Surgery; ATTEND Surgery
PROC: HZ2ZZZZ Detoxification Services for Substance Abuse Treatment (ICD-10-PCS; principal; 2019-01-19)
DX: F11.23 Opioid dependence with withdrawal (principal); F14.20 Cocaine dependence, uncomplicated; F12.20 Cannabis dependence, uncomplicated; F17.210 Nicotine dependence, cigarettes, uncomplicated; L02.411 Cutaneous abscess of right axilla
CPT/HCPCS: 36415; 80053; 85027; 86593; J0735

== ENCOUNTER 2019-05-28 12:11 | Inpatient (IN) | payer OTHER ==
[2019-05-28 13:19] VITALS: BMI 27.6
--- NOTE | 2019-05-28 13:53 | HP ---
COWS - Scale Resting Pulse: 1= MT 81-100 Sweatin= Chills/Flushing Restless Observation: 3= Extraneous Movement Pupil Size: 0= Normal to Room Light Bone or Joint Aches: 2= Severe Diffuse Aches Runny Nose/ Eye Tearin= Runny Nose/Eyes GI Upset > 30mins: 2= Nausea/Diarrhea Tremor Observation: 2= Slight Tremor Visible Yawning Observation: 1= 1-2x During Session Anxiety or Irritability: 2=Irritable/Anxious Goose Flesh Skin: 3=Piloerection COWS Score: 19 CIWA Score - Admission Criteria OASAS Guidelines: Admission for Medically Managed Detox: Requires at least one of the followin. CIWA greater than 12 2. Seizures within the past 24 hours 3. Delirium tremens within the past 24 hours 4. Hallucinations within the past 24 hours 5. Acute intervention needed for co occurring medical disorder 6. Acute intervention needed for co occurring psychiatric disorder 7. Severe withdrawal that cannot be handled at a lower level of care (continued vomiting, continued diarrhea, abnormal vital signs) requiring intravenous medication and/or fluids 8. Admitting History and Physical - Smoking History Smoking history: Current every day smoker Have you smoked in the past 12 months: Yes Aproximately how many cigarettes per day: 20 - Alcohol/Substance Use Hx Alcohol Use: No Admission ROS BHS - HPI Chief Complaint: I need detox Allergies/Adverse Reactions: Allergies Allergy/AdvReac Type Severity Reaction Status Date / Time No Known Allergies Allergy Verified 05/28/19 13:15 History of Present Illness: Patient is a 23 year old man who presents for detox from heroin. His last treatment was in January of this year at this facility. Exam Limitations: No Limitations - Ebola screening Have you traveled outside of the country in the last 21 days: No Have you had contact with anyone from an Ebola affected area: No Have you been sick,other than usual withdrawal symptoms: No Do you have a fever: No - Review of Systems Constitutional: Chills, Loss of Appetite, Changes in sleep EENT: reports: Blurred Vision Respiratory: reports: Cough Cardiac: reports: No Symptoms Reported GI: reports: Poor Appetite, Poor Fluid Intake, Abdominal cramping : reports: No Symptoms Reported Musculoskeletal: reports: Muscle Pain, Muscle Weakness Integumentary: reports: Flushing Neuro: reports: Headache Endocrine: reports: No Symptoms Reported Hematology: reports: No Symptoms Reported Psychiatric: reports: Anxious, Depressed Other Systems: Reviewed and Negative Patient History - Patient Medical History Hx Anemia: No Hx Asthma: No Hx Chronic Obstructive Pulmonary Disease (COPD): No Hx Cancer: No Hx Cardiac Disorders: No Hx Congestive Heart Failure: No Hx Hypertension: No Hx Hypercholesterolemia: No Hx Pacemaker: No HX Cerebrovascular Accident: No Hx Seizures: No Hx Dementia: No Hx Diabetes: No Hx Gastrointestinal Disorders: No Hx Liver Disease: No Hx Genitourinary Disorders: No Hx Sexually Transmitted Disorders: No Hx Renal Disease (ESRD): No Hx Thyroid Disease: No Hx Human Immunodeficiency Virus (HIV): No Hx Hepatitis C: No Hx Depression: No Hx Suicide Attempt: No Hx Bipolar Disorder: No Hx Schizophrenia: No - Patient Surgical History Past Surgical History: No - PPD History Previous Implant?: Yes Documented Results: Negative w/proof Implanted On Prior [facility] Admission?: Yes Date: 12/18/17 Results: 0 mm - Smoking Cessation Smoking history: Current every day smoker Have you smoked in the past 12 months: Yes Aproximately how many cigarettes per day: 10 Cigars Per Day: 0 Hx Chewing Tobacco Use: No Initiated information on smoking cessation: Yes 'Breaking Loose' booklet given: 05/28/19 - Substances abused Cocaine Substance route: Inhalation Frequency: Daily Amount used: 3bags Age of first use: 17 Date of last use: 05/28/19 Heroin Substance route: Inhalation Frequency: Daily Amount used: 2 bundle Age of first use: 20 Date of last use: 05/28/19 Admission Physical Exam BHS - Vital Signs Vital Signs: Vital Signs - 24 hr 05/28/19 13:16 Temperature 97.2 F L Pulse Rate 90 Respiratory 18 Rate Blood Pressure 136/81 - Physical General Appearance: Yes: No Apparent Distress HEENTM: Yes: Hearing grossly Normal, Normocephalic, Normal Voice, JAGDEEP Respiratory: Yes: Chest Non-Tender, Lungs Clear, Normal Breath Sounds, No Respiratory Distress, No Accessory Muscle Use Neck: Yes: No masses,lesions,Nodules, Supple Breast: Yes: Breast Exam Deferred Cardiology: Yes: Regular Rhythm, Regular Rate, S1, S2 Abdominal: Yes: Normal Bowel Sounds, Non Tender, Soft Genitourinary: Yes: Within Normal Limits Back: Yes: Normal Inspection Musculoskeletal: Yes: full range of Motion, Gait Steady, Pelvis Stable Extremities: Yes: Tremors Neurological: Yes: county demonstrator II-XII NML intact, Fully Oriented, Alert, Normal Mood/ Affect, Normal Response Integumentary: Yes: Clammy Lymphatic: Yes: Within Normal Limits - Diagnostic (1) Cannabis dependence Current Visit: Yes Status: Acute (2) Cocaine dependence Current Visit: Yes Status: Acute Qualifiers: Substance use status: uncomplicated Qualified Code(s): F14.20 - Cocaine dependence, uncomplicated (3) Nicotine dependence Current Visit: Yes Status: Chronic Qualifiers: Nicotine product type: cigarettes Substance use status: uncomplicated Qualified Code(s): F17.210 - Nicotine dependence, cigarettes, uncomplicated (4) Opioid dependence with withdrawal Current Visit: Yes Status: Chronic Cleared for Admission [facility] - Detox or Rehab [facility] Level of Care: Medically Managed Detox Regimen/Protocol: Methadone Claeared for Rehab Admission: No Breathalyzer - Breathalyzer Breathalyzer: 0 Urine Drug Screen - Test Device Lot number: [id number] Expiration date: 01/14/21 - Control Is test valid?: Yes - Results Drug screen NEGATIVE: Yes Urine drug screen results: THC-Marijuana, ADELINA-Cocaine, MOP-Opiates, MTD- Methadone Inpatient Rehab Admission - Rehab Decision to Admit Inpatient rehab admission?: No
[2019-05-28] MEDS ORDERED: ACETAMINOPHEN 325 MG TABLET (FP) PO PRN ×2 (13:59)
[2019-05-28] MEDS ORDERED: METHOCARBAMOL 500 MG TABLET PO PRN (13:59)
[2019-05-28] MEDS ORDERED: MAG HYDROX/AL HYDROX/SIMETH 30 ML UNIT-DOSE CUP PO PRN (13:59)
[2019-05-28] MEDS ORDERED: NICOTINE POLACRILEX 2 MG GUM BUC PRN (13:59)
[2019-05-28] MEDS ORDERED: MAGNESIUM HYDROX 2400MG/30ML ORAL SUSPENSION 30 ML CUP PO PRN (13:59)
[2019-05-28] MEDS ORDERED: MAGNESIUM CITRATE 300 ML BOTTLE PO PRN (13:59)
[2019-05-28] MEDS ORDERED: BISMUTH SUBSALICYLATE 524 MG/30 ML UD PO PRN (13:59)
[2019-05-28] MEDS ORDERED: NALOXONE HCL 0.4 MG/ML VIAL IM PRN (13:59)
[2019-05-28] MEDS ORDERED: cloNIDine HCL 0.1 MG TABLET PO PRN (13:59)
[2019-05-28] MEDS ORDERED: MENTHOL/PHENOL 1 EACH UD MM PRN (13:59)
[2019-05-28] MEDS ORDERED: METHADONE HCL 10 MG TABLET (FOR DETOX USE ONLY) PO ONE (15:00)
[2019-05-28] MEDS: clonazePAM 0.5 MG TABLET PO PRN ×2 (15:25→22:08)
[2019-05-28] MEDS: NICOTINE 7 MG/24 HOURS TOPICAL PATCH TD SCH (15:39)
[2019-05-28] MEDS: IBUPROFEN 400 MG TABLET (FP) PO PRN (17:45)
[2019-05-28] MEDS: hydrOXYzine PAMOATE 50 MG CAPSULE (FP) PO PRN (20:31)
[2019-05-28] MEDS: THIAMINE HCL 100 MG TABLET (FP) PO SCH (22:08)
[2019-05-29] MEDS: MELATONIN 5 MG TABLETS PO PRN ×2 (00:50→22:09)
[2019-05-29] MEDS: IBUPROFEN 400 MG TABLET (FP) PO PRN (05:27)
[2019-05-29] MEDS: hydrOXYzine PAMOATE 50 MG CAPSULE (FP) PO PRN (05:28)
[2019-05-29] MEDS ORDERED: METHADONE HCL 5 MG TABLET (FOR DETOX USE ONLY) PO ONE (10:00)
[2019-05-29] MEDS: clonazePAM 0.5 MG TABLET PO PRN (10:08)
[2019-05-29] MEDS: PRENATAL VITAMINS W/ FOLIC ACID TABLET (FP) PO SCH (10:08)
[2019-05-29] MEDS: NICOTINE 7 MG/24 HOURS TOPICAL PATCH TD SCH (10:09)
--- NOTE | 2019-05-29 10:20 | PN ---
BHS COWS - Scale Resting Pulse: 1= [place] 81-100 Sweatin= Beads of Sweat on Face Restless Observation: 1= Difficult to Sit Still Pupil Size: 0= Normal to Room Light Bone or Joint Aches: 2= Severe Diffuse Aches Runny Nose/ Eye Tearin= None GI Upset > 30mins: 0= None Tremor Observation of Outstretched Hands: 0= None Yawning Observation: 1= 1-2x During Session Anxiety or Irritability: 2=Irritable/Anxious Goose Flesh Skin: 0=Smooth Skin COWS Score: 10 BHS Progress Note (SOAP) Subjective: c/o muscle aches, anxiety, irritability, and sweats. Objective: 05/29/19 10:19 Vital Signs 05/29/19 05/29/19 05/29/19 03:30 06:19 09:20 Temperature 96.5 F L 97.3 F L Pulse Rate 83 100 H Respiratory 18 16 18 Rate Blood Pressure 113/75 119/77 Labs pending. Assessment: 05/29/19 10:19 AOX3, in no respiratory distress. Full ROM, ambulating in the unit. Withdrawal symptoms. Plan: continue detox.
[2019-05-29 10:28] LABS: ALBUMIN 3.9 g/dl (3.4-5.0); BILIRUBIN,TOTAL 0.3 mg/dL (0.2-1); BLOOD UREA NITROGEN 15.8 mg/dL (7-18); CALCIUM 8.9 mg/dL (8.5-10.1); CREATININE 0.9 mg/dL (0.55-1.3); HEMATOCRIT 34.4 % (35.4-49); HEMOGLOBIN 11.5 GM/dL (11.7-16.9); MCH 27.7 pg (25.7-33.7); MCHC 33.2 g/dl (32.0-35.9); MEAN CELL VOLUME 83.3 fl (80-96); MEAN PLT VOLUME 8.6 fl (7.5-11.1); PLATELET COUNT 247 K/MM3 (134-434); POTASSIUM 4.2 mmol/L (3.5-5.1); RBC 4.13 M/mm3 (4.00-5.60); TOT PROT 6.6 g/dl (6.4-8.2)
--- NOTE | 2019-05-29 17:17 | PN ---
S Progress Note Note: Patient reports that PRN Klonopin PO is ineffective for him at helping to alleviate Withdrawal symptoms. At patient's request, PRN Klonopin D/C'd, and PRN Valium PO ordered. Amna Salcido NP
[2019-05-29] MEDS: diazePAM 5 MG TABLET PO PRN (17:37)
[2019-05-29] MEDS: THIAMINE HCL 100 MG TABLET (FP) PO SCH (22:09)
[2019-05-30] MEDS: diazePAM 5 MG TABLET PO PRN ×2 (00:38→07:14)
[2019-05-30 09:08] VITALS: BP 106/69; PULSE 69; TEMP 96.9
[2019-05-30] MEDS ORDERED: METHADONE HCL 10 MG TABLET (FOR DETOX USE ONLY) PO ONE (10:00)
[2019-05-30] MEDS: PRENATAL VITAMINS W/ FOLIC ACID TABLET (FP) PO SCH (10:22)
[2019-05-30] MEDS: NICOTINE 7 MG/24 HOURS TOPICAL PATCH TD SCH (10:22)
--- NOTE | 2019-05-30 13:06 | EKG ---
Test Reason : Blood Pressure : / mmHG Vent. Rate : 070 BPM Atrial Rate : 070 BPM P-R Int : 152 ms QRS Dur : 096 ms QT Int : 382 ms P-R-T Axes : 050 020 035 degrees QTc Int : 412 ms NORMAL SINUS RHYTHM NORMAL ECG WHEN COMPARED WITH ECG OF 16-DEC-2017 14:58, T WAVE AMPLITUDE HAS DECREASED IN ANTERIOR LEADS Confirmed by MIRIAM ROCHE MD ([id number]) on 05/30/2019 1:05:57 PM Referred By: Confirmed By:MIRIAM ROCHE MD
--- NOTE | 2019-05-30 17:34 | DS ---
[facility] Detox Discharge Summary Admission Date: 05/28/19 Discharge Date: 05/30/19 - History Present History: Cannabis Dependence, Cocaine Dependence, Opioid Dependence Additional Comments: PATIENT APPROACHED CELLULAR BIOLOGIST TODAY AND REPORTED THAT, ALTHOUGH HE WAS ADMITTED AT [facility] FOR DETOX FROM OPIATES ON 05/28/2019, HE IS ACTUALLY CURRENTLY A METHADONE MAINTENANCE THERAPY PATIENT AT [facility]. PATIENT UNABLE TO GIVE CLEAR REASON WHY HE DENIED CURRENT [facility] CLIENT WHEN HE WAS ADMITTED AT [facility] FOR DETOX. Valerie HANCOCK RN CONTACTED [facility] TO CONFIRM, SPOKE WITH BlancaManuel MORA THERE. Manuel ABBY CONFIRMED THAT PATIENT IS CURRENTLY AN ACTIVE CLIENT THERE (DAILY MAINTENANCE DOSE: 130 MG PO DAILY, LAST DAY MEDICATED (05/28/2019, TAKE-HOME BOTTLE GIVEN FOR 05/29/2019). PER MS. MORA, PATIENT ABLE TO RETURN TO PROGRAM IMMEDIATELY FOR RE-INSTATEMENT AND FOR FURTHER EVALUATION. PATIENT MADE AWARE. PATIENT REQUESTED TO REMAIN ON DETOX UNIT AND TO COMPLETE DETOX FOR NEXT TWO DAYS. PATIENT MADE AWARE THAT, IN ORDER TO BE TAPERED DOWN FROM CURRENT DOSE OF METHADONE MAINTENANCE, HE MUST RETURN TO [facility] PROGRAM AND BE TAPERED DOWN THERE UNDER SUPERVISION AND RECOMMENDATION OF MEDICAL PROVIDERS AT THAT PROGRAM. PATIENT VERBALIZED UNDERSTANDING OF EXPLANATION. PATIENT SUBSEQUENTLY DISCHARGED FROM DETOX UNIT AND ADVISED TO RETURN IMMEDIATELY TO [facility] FOR FURTHER GUIDANCE. PATIENT VERBALIZED UNDERSTANDING OF RECOMMENDATION. PATIENT WAS DISCHARGED FROM DETOX UNIT IN STABLE MEDICAL CONDITION. Pertinent Past History: Nicotine Dependence, Anemia. - Physical Exam Results Vital Signs: Vital Signs Temperature 96.9 F L 05/30/19 09:07 Pulse Rate 69 05/30/19 09:07 Respiratory Rate 16 05/30/19 09:07 Blood Pressure 106/69 05/30/19 09:07 O2 Sat by Pulse Oximetry (%) Pertinent Admission Physical Exam Findings: PATIENT PRESENTED REPORTING WITHDRAWAL SYMPTOMS. Laboratory Tests 05/29/19 05/29/19 05/29/19 07:15 07:15 07:15 WBC 6.0 RBC 4.13 Hgb 11.5 L Hct 34.4 L D MCV 83.3 MCH 27.7 MCHC 33.2 RDW 15.0 Plt Count 247 MPV 8.6 Sodium 141 Potassium 4.2 Chloride 106 Carbon Dioxide 31 Anion Gap 4 L BUN 15.8 Creatinine 0.9 Est GFR (CKD-EPI)AfAm 138.06 Est GFR (CKD-EPI)NonAf 119.12 Random Glucose 98 Calcium 8.9 Total Bilirubin 0.3 AST 25 ALT 37 Alkaline Phosphatase 76 Total Protein 6.6 Albumin 3.9 RPR Titer HIV 1&2 Antibody Screen Negative HIV P24 Antigen Negative 05/29/19 07:15 WBC RBC Hgb Hct MCV MCH MCHC RDW Plt Count MPV Sodium Potassium Chloride Carbon Dioxide Anion Gap BUN Creatinine Est GFR (CKD-EPI)AfAm Est GFR (CKD-EPI)NonAf Random Glucose Calcium Total Bilirubin AST ALT Alkaline Phosphatase Total Protein Albumin RPR Titer Nonreactive HIV 1&2 Antibody Screen HIV P24 Antigen LABS NOTED. - Medication Discharge Medications: Ambulatory Orders NK [No Known Home Medication] 05/28/19 - Diagnosis (1) Cannabis dependence Status: Acute (2) Cocaine dependence Status: Acute Qualifiers: Substance use status: uncomplicated Qualified Code(s): F14.20 - Cocaine dependence, uncomplicated (3) Nicotine dependence Status: Chronic Qualifiers: Nicotine product type: cigarettes Substance use status: uncomplicated Qualified Code(s): F17.210 - Nicotine dependence, cigarettes, uncomplicated (4) Opioid dependence with withdrawal Status: Acute - AMA Did Patient Leave Against Medical Advice: No
[2019-05-31] MEDS ORDERED: METHADONE HCL 5 MG TABLET (FOR DETOX USE ONLY) PO ONE (06:00)
== END 2019-05-30 12:18 | disposition home or self-care (01) | DRG 773 ==
LOC: YASAS 12:11 → Y3N 15:00
PROVIDERS: ADMIT Allergy & Immunology; ATTEND Allergy & Immunology
PROC: HZ2ZZZZ Detoxification Services for Substance Abuse Treatment (ICD-10-PCS; principal; 2019-05-28)
DX: F11.23 Opioid dependence with withdrawal (principal); F14.20 Cocaine dependence, uncomplicated; F12.20 Cannabis dependence, uncomplicated; F17.210 Nicotine dependence, cigarettes, uncomplicated
CPT/HCPCS: 36415; 80053; 85027; 86593; 87389; 93005; 93010; J0735

== ENCOUNTER 2020-03-30 12:24 | Inpatient (IN) | payer OTHER ==
--- NOTE | 2020-03-30 13:35 | BHS.RME ---
COWS - Scale Resting Pulse: 1= ME 81-100 Sweatin=Flushed/Facial Moisture Restless Observation: 0= Sits Still Pupil Size: 0= Normal to Room Light Bone or Joint Aches: 1= Mild Discomfort Runny Nose/ Eye Tearin= Nasal Congestion GI Upset > 30mins: 3= Vomiting/Diarrhea Tremor Observation: 2= Slight Tremor Visible Yawning Observation: 0= None Anxiety or Irritability: 2=Irritable/Anxious Goose Flesh Skin: 0=Smooth Skin COWS Score: 12
--- NOTE | 2020-03-30 14:41 | HP ---
COWS - Scale Resting Pulse: 1= MT 81-100 Sweatin=Flushed/Facial Moisture Restless Observation: 0= Sits Still Pupil Size: 0= Normal to Room Light Bone or Joint Aches: 1= Mild Discomfort Runny Nose/ Eye Tearin= Nasal Congestion GI Upset > 30mins: 3= Vomiting/Diarrhea Tremor Observation: 2= Slight Tremor Visible Yawning Observation: 0= None Anxiety or Irritability: 2=Irritable/Anxious Goose Flesh Skin: 0=Smooth Skin COWS Score: 12 CIWA Score - Admission Criteria OASAS Guidelines: Admission for Medically Managed Detox: Requires at least one of the followin. CIWA greater than 12 2. Seizures within the past 24 hours 3. Delirium tremens within the past 24 hours 4. Hallucinations within the past 24 hours 5. Acute intervention needed for co occurring medical disorder 6. Acute intervention needed for co occurring psychiatric disorder 7. Severe withdrawal that cannot be handled at a lower level of care (continued vomiting, continued diarrhea, abnormal vital signs) requiring intravenous medication and/or fluids 8. Admitting History and Physical - Admission Chief Complaint: Detox from heroin History of Present Illness: CC: Detox from heroin HPI: Hayden is a 24 year old with no significant PMH who presents for detox from heroin. He has attempted detox 2-3 times previously, but once he gets out he immediately relapses. He was admitted at [facility] from 05/28/19 to 05/30/19. He tried the methadone program at [facility] for 3 months, but stopped going in January because he had begun to use heroin again. Substance: Heroin Amount: 20 bags Frequency: every day Date of Last Use:03/30/20 Date of first use: 2018 (age 22) Substance: Nicotine Amount: 10 cigarettes/day Frequency:daily Date of Last Use:03/30/20 Date of first use: 15 years old PMH: None PSH: None Psych: None Social: Lives with family Legal: None History Source: Patient Limitations to Obtaining History: No Limitations - Smoking History Smoking history: Current every day smoker Have you smoked in the past 12 months: Yes Aproximately how many cigarettes per day: 10 - Alcohol/Substance Use Hx Alcohol Use: No - Social History Usual Living Arrangement: Yes: Alone Admission ROS [facility] - HPI Chief Complaint: Detox from heroin Allergies/Adverse Reactions: Allergies Allergy/AdvReac Type Severity Reaction Status Date / Time No Known Allergies Allergy Verified 05/28/19 13:15 Exam Limitations: No Limitations - Ebola screening Have you traveled outside of the country in the last 21 days: No Have you had contact with anyone from an Ebola affected area: No Have you been sick,other than usual withdrawal symptoms: No Do you have a fever: No - Review of Systems Constitutional: No Symptoms Reported, Weight Stable EENT: denies: Eye Pain, Ear Pain, Nose Congestion Respiratory: denies: Cough, Shortness of Breath Cardiac: denies: Chest Pain GI: reports: Vomiting. denies: Constipated, Diarrhea, Nausea : reports: No Symptoms Reported Musculoskeletal: reports: No Symptoms Reported Integumentary: reports: No Symptoms Reported Neuro: reports: No Symptoms reported. denies: Headache, Seizure Endocrine: reports: No Symptoms Reported Hematology: reports: No Symptoms Reported Psychiatric: reports: Orientated x3 Patient History - Patient Medical History Hx Anemia: No Hx Asthma: No Hx Chronic Obstructive Pulmonary Disease (COPD): No Hx Cancer: No Hx Cardiac Disorders: No Hx Congestive Heart Failure: No Hx Hypertension: No Hx Hypercholesterolemia: No Hx Pacemaker: No HX Cerebrovascular Accident: No Hx Seizures: No Hx Dementia: No Hx Diabetes: No Hx Gastrointestinal Disorders: No Hx Liver Disease: No Hx Genitourinary Disorders: No Hx Sexually Transmitted Disorders: No Hx Renal Disease (ESRD): No Hx Thyroid Disease: No Hx Human Immunodeficiency Virus (HIV): No Hx Hepatitis C: No Hx Depression: No Hx Suicide Attempt: No Hx Bipolar Disorder: No Hx Schizophrenia: No - Patient Surgical History Past Surgical History: No Hx Neurologic Surgery: No Hx Cataract Extraction: No Hx Cardiac Surgery: No Hx Lung Surgery: No Hx Breast Surgery: No Hx Breast Biopsy: No Hx Abdominal Surgery: No Hx Appendectomy: No Hx Cholecystectomy: No Hx Genitourinary Surgery: No Hx Section: No Hx Orthopedic Surgery: No Anesthesia Reaction: No - PPD History Date: 12/18/17 Results: 0 mm - Smoking Cessation Smoking history: Current every day smoker Have you smoked in the past 12 months: Yes Aproximately how many cigarettes per day: 10 Cigars Per Day: 0 Hx Chewing Tobacco Use: No Initiated information on smoking cessation: Yes 'Breaking Loose' booklet given: 03/30/20 - Substances abused Heroin Substance route: Injection Admission Physical Exam BHS - Physical General Appearance: Yes: Within Normal Limits, No Apparent Distress, Nourished HEENTM: Yes: Within Normal Limits, Hearing grossly Normal, Normocephalic, Normal Voice, JAGDEEP Respiratory: Yes: Within Normal Limits, Lungs Clear, Normal Breath Sounds, No Respiratory Distress, No Accessory Muscle Use Neck: Yes: Within Normal Limits Breast: Yes: Breast Exam Deferred Cardiology: Yes: Within Normal Limits, Regular Rhythm, Regular Rate Abdominal: Yes: Within Normal Limits, Normal Bowel Sounds, Non Tender, Flat, Soft Genitourinary: Yes: Within Normal Limits Back: Yes: Within Normal Limits, Normal Inspection Musculoskeletal: Yes: Within Normal Limits, full range of Motion, Gait Steady Extremities: Yes: Within Normal Limits Neurological: Yes: Within Normal Limits, Fully Oriented, Alert, Normal Mood/Affect, Normal Response Integumentary: Yes: Within Normal Limits - Diagnostic (1) Opioid dependence with withdrawal Current Visit: Yes Status: Acute (2) Nicotine dependence Current Visit: Yes Status: Acute Qualifiers: Nicotine product type: cigarettes Substance use status: uncomplicated Qualified Code(s): F17.210 - Nicotine dependence, cigarettes, uncomplicated Cleared for Admission [facility] - Detox or Rehab [facility] Level of Care: Medically Managed Screened but not Admitted - Documentation of Visit Screened but not Admitted: No Breathalyzer - Breathalyzer Breathalyzer: 0 Urine Drug Screen - Test Device Lot number: [id number] Expiration date: 03/20/22 - Control Is test valid?: Yes - Results Drug screen NEGATIVE: No Urine drug screen results: FEN-Fentanyl, MOP-Opiates Inpatient Rehab Admission - Rehab Decision to Admit Inpatient rehab admission?: No
[2020-03-30] MEDS ORDERED: BISMUTH SUBSALICYLATE 262 MG/15 ML BTL PO PRN (14:55)
[2020-03-30] MEDS ORDERED: MAGNESIUM HYDROX 2400MG/30ML ORAL SUSPENSION 30 ML CUP PO PRN (14:55)
[2020-03-30] MEDS ORDERED: ONDANSETRON *ODT* 4 MG TABLET SL ONE (14:55)
[2020-03-30] MEDS ORDERED: MENTHOL/PHENOL 1 EACH UD MM PRN (14:55)
[2020-03-30] MEDS ORDERED: MAGNESIUM CITRATE 300 ML BOTTLE PO PRN (14:55)
[2020-03-30] MEDS ORDERED: IBUPROFEN 400 MG TABLET (FP) PO PRN (14:55)
[2020-03-30] MEDS ORDERED: NICOTINE POLACRILEX 2 MG GUM BUC PRN (14:55)
[2020-03-30] MEDS ORDERED: METHOCARBAMOL 500 MG TABLET PO PRN (14:55)
[2020-03-30] MEDS ORDERED: MAG HYDROX/AL HYDROX/SIMETH 30 ML UNIT-DOSE CUP PO PRN (14:55)
[2020-03-30] MEDS ORDERED: ONDANSETRON *ODT* 4 MG TABLET SL PRN (14:55)
[2020-03-30] MEDS ORDERED: ACETAMINOPHEN 325 MG TABLET (FP) PO PRN ×2 (14:55)
[2020-03-30] MEDS ORDERED: METHADONE HCL 10 MG TABLET (FOR DETOX USE ONLY) PO ONE (14:55)
[2020-03-30] MEDS ORDERED: cloNIDine HCL 0.1 MG TABLET PO PRN (14:55)
[2020-03-30 15:30] VITALS: BMI 31.7
[2020-03-30] MEDS: NICOTINE 21 MG/24 HOURS TOPICAL PATCH TD SCH (15:52)
--- NOTE | 2020-03-30 16:22 | PN ---
Teaching Attending Note Name of Resident: Mayi Montero ATTENDING PHYSICIAN STATEMENT I saw and evaluated the patient. I reviewed the resident's note and discussed the case with the resident. I agree with the resident's findings and plan as documented. SUBJECTIVE: OBJECTIVE: ASSESSMENT AND PLAN: 1. Opioid use disorder, withdrawal Plan 1. Methadone detox protocol
[2020-03-30 16:46] LABS: HEMATOCRIT 38.5 % (35.4-49); HEMOGLOBIN 12.6 GM/dL (11.7-16.9); MCH 26.9 pg (25.7-33.7); MCHC 32.7 g/dl (32.0-35.9); MEAN CELL VOLUME 82.3 fl (80-96); PLATELET COUNT 258 K/MM3 (134-434); RBC 4.68 M/mm3 (4.00-5.60); RDW 13.9 % (11.9-15.9); WHITE BLOOD COUNT 6.2 K/mm3 (4.0-10.0)
[2020-03-30 17:07] LABS: ALBUMIN 4.2 g/dl (3.4-5.0); BLOOD UREA NITROGEN 12.6 mg/dL (7-18); CALCIUM 9.6 mg/dL (8.5-10.1); CREATININE 0.9 mg/dL (0.55-1.3); POTASSIUM 4.5 mmol/L (3.5-5.1)
[2020-03-30 17:08] LABS: BILIRUBIN,TOTAL 0.7 mg/dL (0.2-1); TOT PROT 7.5 g/dl (6.4-8.2)
[2020-03-30] MEDS: hydrOXYzine PAMOATE 25 MG CAPSULE (FP) PO SCH ×2 (19:00→21:44)
[2020-03-30] MEDS: THIAMINE HCL 100 MG TABLET (FP) PO SCH (21:44)
[2020-03-30] MEDS: MELATONIN 5 MG TABLETS PO SCH (21:44)
[2020-03-31] MEDS: hydrOXYzine PAMOATE 25 MG CAPSULE (FP) PO SCH ×5 (05:33→22:10)
[2020-03-31] MEDS ORDERED: METHADONE HCL 5 MG TABLET (FOR DETOX USE ONLY) ONE (08:40)
[2020-03-31] MEDS ORDERED: METHADONE HCL 10 MG TABLET (FOR DETOX USE ONLY) ONE (08:41)
[2020-03-31] MEDS ORDERED: METHADONE (DETOX) 20 MG, METHADONE (DETOX) 5 MG PO ONE (10:00)
[2020-03-31] MEDS: PRENATAL VITAMINS W/ FOLIC ACID TABLET (FP) PO SCH (10:59)
[2020-03-31] MEDS: NICOTINE 21 MG/24 HOURS TOPICAL PATCH TD SCH (11:00)
[2020-03-31] MEDS: diazePAM 5 MG TABLET PO PRN ×3 (12:34→22:11)
--- NOTE | 2020-03-31 15:17 | PN ---
BHS COWS - Scale Resting Pulse: 1= [place] 81-100 Sweatin= Chills/Flushing Restless Observation: 1= Difficult to Sit Still Pupil Size: 0= Normal to Room Light Bone or Joint Aches: 1= Mild Discomfort Runny Nose/ Eye Tearin= None GI Upset > 30mins: 0= None Tremor Observation of Outstretched Hands: 0= None Yawning Observation: 1= 1-2x During Session Anxiety or Irritability: 2=Irritable/Anxious Goose Flesh Skin: 3=Piloerection COWS Score: 10 BHS Progress Note (SOAP) Subjective: Anxious, Interrupted Sleep, Fatigue, Body Aches. Objective: Patient A & O X 3, Observed Ambulating on Detox Unit Unassisted. In No Acute Distress. 03/31/20 15:15 Vital Signs Temperature 97.1 F L 03/31/20 12:42 Pulse Rate 94 H 03/31/20 12:42 Respiratory Rate 16 03/31/20 12:42 Blood Pressure 130/86 03/31/20 12:42 O2 Sat by Pulse Oximetry (%) 100 03/31/20 12:42 Laboratory Tests 03/30/20 03/30/20 03/30/20 14:20 15:15 15:30 WBC RBC Hgb Hct MCV MCH MCHC RDW Plt Count MPV Sodium Potassium Chloride Carbon Dioxide Anion Gap BUN Creatinine Est GFR (CKD-EPI)AfAm Est GFR (CKD-EPI)NonAf Random Glucose Calcium Total Bilirubin AST ALT Alkaline Phosphatase Total Protein Albumin Syphilis Serology Non-reactive COVID-19 (JESSIKA) Not detected HIV Ag/Ab Combo Qual Negative 03/30/20 03/30/20 15:30 15:30 WBC 6.2 RBC 4.68 Hgb 12.6 Hct 38.5 MCV 82.3 MCH 26.9 MCHC 32.7 RDW 13.9 Plt Count 258 MPV 9.0 Sodium 140 Potassium 4.5 Chloride 104 Carbon Dioxide 27 Anion Gap 10 BUN 12.6 Creatinine 0.9 Est GFR (CKD-EPI)AfAm 137.10 Est GFR (CKD-EPI)NonAf 118.29 Random Glucose 104 Calcium 9.6 Total Bilirubin 0.7 AST 29 ALT 45 Alkaline Phosphatase 89 Total Protein 7.5 Albumin 4.2 Syphilis Serology COVID-19 (JESSIKA) HIV Ag/Ab Combo Qual Lab Results noted. Assessment: 03/31/20 15:15 WITHDRAWAL SYMPTOMS. Plan: Continue Detox. Due to severity of Anxiety and Insomnia, at Patient Request, PRN oral Valium ordered to help facilitate Detox Withdrawal Process.
[2020-03-31] MEDS: MELATONIN 5 MG TABLETS PO SCH (22:10)
[2020-03-31] MEDS: THIAMINE HCL 100 MG TABLET (FP) PO SCH (22:10)
[2020-04-01] MEDS: diazePAM 5 MG TABLET PO PRN ×4 (02:30→22:44)
[2020-04-01] MEDS: hydrOXYzine PAMOATE 25 MG CAPSULE (FP) PO SCH ×6 (05:57→22:44)
[2020-04-01] MEDS ORDERED: METHADONE HCL 10 MG TABLET (FOR DETOX USE ONLY) PO ONE (10:00)
[2020-04-01] MEDS: NICOTINE 21 MG/24 HOURS TOPICAL PATCH TD SCH (11:02)
[2020-04-01] MEDS: PRENATAL VITAMINS W/ FOLIC ACID TABLET (FP) PO SCH (11:02)
--- NOTE | 2020-04-01 16:35 | PN ---
BHS COWS - Scale Resting Pulse: 0= DC 80 or Below Sweatin= Chills/Flushing Restless Observation: 0= Sits Still Pupil Size: 0= Normal to Room Light Bone or Joint Aches: 1= Mild Discomfort Runny Nose/ Eye Tearin= Runny Nose/Eyes GI Upset > 30mins: 1= Stomach Cramp Tremor Observation of Outstretched Hands: 2= Slight Tremor Visible Yawning Observation: 0= None Anxiety or Irritability: 1=Feels Anxious/Irritable Goose Flesh Skin: 0=Smooth Skin COWS Score: 8 BHS Progress Note (SOAP) Subjective: Interrupted sleep Objective: 04/01/20 16:34 Last Vital Signs Temp Pulse Resp BP Pulse Ox 97.7 F 77 17 112/70 90 L 04/01/20 12:57 04/01/20 12:57 04/01/20 12:57 04/01/20 12:57 04/01/20 12:57 Laboratory Tests 03/30/20 03/30/20 03/30/20 14:20 15:15 15:30 WBC RBC Hgb Hct MCV MCH MCHC RDW Plt Count MPV Sodium Potassium Chloride Carbon Dioxide Anion Gap BUN Creatinine Est GFR (CKD-EPI)AfAm Est GFR (CKD-EPI)NonAf Random Glucose Calcium Total Bilirubin AST ALT Alkaline Phosphatase Total Protein Albumin Syphilis Serology Non-reactive COVID-19 (JESSIKA) Not detected HIV Ag/Ab Combo Qual Negative 03/30/20 03/30/20 15:30 15:30 WBC 6.2 RBC 4.68 Hgb 12.6 Hct 38.5 MCV 82.3 MCH 26.9 MCHC 32.7 RDW 13.9 Plt Count 258 MPV 9.0 Sodium 140 Potassium 4.5 Chloride 104 Carbon Dioxide 27 Anion Gap 10 BUN 12.6 Creatinine 0.9 Est GFR (CKD-EPI)AfAm 137.10 Est GFR (CKD-EPI)NonAf 118.29 Random Glucose 104 Calcium 9.6 Total Bilirubin 0.7 AST 29 ALT 45 Alkaline Phosphatase 89 Total Protein 7.5 Albumin 4.2 Syphilis Serology COVID-19 (JESSIKA) HIV Ag/Ab Combo Qual Labs reviewed Assessment: 04/01/20 16:35 Withdrawal sxs Plan: Continue detox Encourage PO water intake
[2020-04-01] MEDS: MELATONIN 5 MG TABLETS PO SCH (22:44)
[2020-04-01] MEDS: THIAMINE HCL 100 MG TABLET (FP) PO SCH (22:44)
[2020-04-02] MEDS: hydrOXYzine PAMOATE 25 MG CAPSULE (FP) PO SCH (05:03)
[2020-04-02] MEDS: diazePAM 5 MG TABLET PO PRN ×2 (05:03→10:54)
[2020-04-02] MEDS ORDERED: METHADONE HCL 5 MG TABLET (FOR DETOX USE ONLY) ONE (09:14)
[2020-04-02] MEDS ORDERED: METHADONE HCL 10 MG TABLET (FOR DETOX USE ONLY) ONE (09:15)
[2020-04-02] MEDS ORDERED: METHADONE (DETOX) 10 MG, METHADONE (DETOX) 5 MG PO ONE (10:00)
[2020-04-02] MEDS: NICOTINE 21 MG/24 HOURS TOPICAL PATCH TD SCH (10:52)
[2020-04-02] MEDS: PRENATAL VITAMINS W/ FOLIC ACID TABLET (FP) PO SCH (10:52)
--- NOTE | 2020-04-02 11:09 | PN ---
BHS COWS - Scale Resting Pulse: 1= CT 81-100 Sweatin= Chills/Flushing Restless Observation: 1= Difficult to Sit Still Pupil Size: 0= Normal to Room Light Bone or Joint Aches: 0= None Runny Nose/ Eye Tearin= None GI Upset > 30mins: 0= None Tremor Observation of Outstretched Hands: 1= Tremor [place], Not Seen Yawning Observation: 0= None Anxiety or Irritability: 1=Feels Anxious/Irritable Goose Flesh Skin: 0=Smooth Skin COWS Score: 5 BHS Progress Note (SOAP) Subjective: sweats chills body aches Objective: 04/02/20 11:10 Vital Signs Temperature 97.2 F L 04/02/20 04:59 Pulse Rate 86 04/02/20 04:59 Respiratory Rate 17 04/02/20 04:59 Blood Pressure 121/73 04/02/20 04:59 O2 Sat by Pulse Oximetry (%) 99 04/02/20 06:34 Laboratory Tests 03/30/20 03/30/20 03/30/20 14:20 15:15 15:30 WBC RBC Hgb Hct MCV MCH MCHC RDW Plt Count MPV Sodium Potassium Chloride Carbon Dioxide Anion Gap BUN Creatinine Est GFR (CKD-EPI)AfAm Est GFR (CKD-EPI)NonAf Random Glucose Calcium Total Bilirubin AST ALT Alkaline Phosphatase Total Protein Albumin Syphilis Serology Non-reactive COVID-19 (JESSIKA) Not detected HIV Ag/Ab Combo Qual Negative 03/30/20 03/30/20 15:30 15:30 WBC 6.2 RBC 4.68 Hgb 12.6 Hct 38.5 MCV 82.3 MCH 26.9 MCHC 32.7 RDW 13.9 Plt Count 258 MPV 9.0 Sodium 140 Potassium 4.5 Chloride 104 Carbon Dioxide 27 Anion Gap 10 BUN 12.6 Creatinine 0.9 Est GFR (CKD-EPI)AfAm 137.10 Est GFR (CKD-EPI)NonAf 118.29 Random Glucose 104 Calcium 9.6 Total Bilirubin 0.7 AST 29 ALT 45 Alkaline Phosphatase 89 Total Protein 7.5 Albumin 4.2 Syphilis Serology COVID-19 (JESSIKA) HIV Ag/Ab Combo Qual aaox3 ambulating no acute distress Assessment: 04/02/20 11:10 withdrawals Plan: continue detox increase fluids
[2020-04-02] MEDS: hydrOXYzine PAMOATE 25 MG CAPSULE (FP) PO PRN ×2 (15:16→19:25)
[2020-04-02] MEDS: THIAMINE HCL 100 MG TABLET (FP) PO SCH (21:42)
[2020-04-02] MEDS: MELATONIN 5 MG TABLETS PO SCH (21:42)
[2020-04-03] MEDS: hydrOXYzine PAMOATE 25 MG CAPSULE (FP) PO PRN ×2 (03:55→10:02)
[2020-04-03] MEDS ORDERED: METHADONE HCL 10 MG TABLET (FOR DETOX USE ONLY) PO ONE (10:00)
[2020-04-03] MEDS: PRENATAL VITAMINS W/ FOLIC ACID TABLET (FP) PO SCH (10:00)
[2020-04-03] MEDS: NICOTINE 21 MG/24 HOURS TOPICAL PATCH TD SCH (10:02)
--- NOTE | 2020-04-03 10:02 | DS ---
[facility] Detox Discharge Summary Admission Date: 03/30/20 Discharge Date: 04/03/20 - History Present History: Cannabis Dependence, Cocaine Dependence, Opioid Dependence - Physical Exam Results Vital Signs: Laboratory Tests 03/30/20 03/30/20 03/30/20 14:20 15:15 15:30 WBC RBC Hgb Hct MCV MCH MCHC RDW Plt Count MPV Sodium Potassium Chloride Carbon Dioxide Anion Gap BUN Creatinine Est GFR (CKD-EPI)AfAm Est GFR (CKD-EPI)NonAf Random Glucose Calcium Total Bilirubin AST ALT Alkaline Phosphatase Total Protein Albumin Syphilis Serology Non-reactive COVID-19 (JESSIKA) Not detected HIV Ag/Ab Combo Qual Negative 03/30/20 03/30/20 15:30 15:30 WBC 6.2 RBC 4.68 Hgb 12.6 Hct 38.5 MCV 82.3 MCH 26.9 MCHC 32.7 RDW 13.9 Plt Count 258 MPV 9.0 Sodium 140 Potassium 4.5 Chloride 104 Carbon Dioxide 27 Anion Gap 10 BUN 12.6 Creatinine 0.9 Est GFR (CKD-EPI)AfAm 137.10 Est GFR (CKD-EPI)NonAf 118.29 Random Glucose 104 Calcium 9.6 Total Bilirubin 0.7 AST 29 ALT 45 Alkaline Phosphatase 89 Total Protein 7.5 Albumin 4.2 Syphilis Serology COVID-19 (JESSIKA) HIV Ag/Ab Combo Qual aaox3 ambulating no acute distress lungs CTA Pertinent Admission Physical Exam Findings: Vital Signs Temperature 97.1 F L 04/03/20 08:49 Pulse Rate 103 H 04/03/20 08:49 Respiratory Rate 18 04/03/20 08:49 Blood Pressure 116/71 04/03/20 08:49 O2 Sat by Pulse Oximetry (%) 99 04/03/20 08:49 Laboratory Tests 03/30/20 03/30/20 03/30/20 14: 15:15 15:30 WBC RBC Hgb Hct MCV MCH MCHC RDW Plt Count MPV Sodium Potassium Chloride Carbon Dioxide Anion Gap BUN Creatinine Est GFR (CKD-EPI)AfAm Est GFR (CKD-EPI)NonAf Random Glucose Calcium Total Bilirubin AST ALT Alkaline Phosphatase Total Protein Albumin Syphilis Serology Non-reactive COVID-19 (JESSIKA) Not detected HIV Ag/Ab Combo Qual Negative 03/30/20 03/30/20 15:30 15:30 WBC 6.2 RBC 4.68 Hgb 12.6 Hct 38.5 MCV 82.3 MCH 26.9 MCHC 32.7 RDW 13.9 Plt Count 258 MPV 9.0 Sodium 140 Potassium 4.5 Chloride 104 Carbon Dioxide 27 Anion Gap 10 BUN 12.6 Creatinine 0.9 Est GFR (CKD-EPI)AfAm 137.10 Est GFR (CKD-EPI)NonAf 118.29 Random Glucose 104 Calcium 9.6 Total Bilirubin 0.7 AST 29 ALT 45 Alkaline Phosphatase 89 Total Protein 7.5 Albumin 4.2 Syphilis Serology COVID-19 (JESSIKA) HIV Ag/Ab Combo Qual aaox3 ambulating no acute distress lungs CTA - Treatment Hospital Course: Detox Protocol Followed, Detoxed Safely, Responded well, Discharged Condition Good, Rehab Referral Accepted - Medication Discharge Medications: Ambulatory Orders NK [No Known Home Medication] 05/28/19 - Diagnosis (1) Nicotine dependence Current Visit: Yes Status: Chronic Qualifiers: Nicotine product type: cigarettes Substance use status: uncomplicated Qualified Code(s): F17.210 - Nicotine dependence, cigarettes, uncomplicated (2) Opioid dependence with withdrawal Current Visit: Yes Status: Chronic (3) Cannabis dependence Current Visit: No Status: Chronic (4) Cocaine dependence Current Visit: Yes Status: Chronic Qualifiers: Substance use status: uncomplicated Qualified Code(s): F14.20 - Cocaine dependence, uncomplicated - AMA Did Patient Leave Against Medical Advice: No
--- NOTE | 2020-04-03 10:02 | PN ---
BHS COWS - Scale Resting Pulse: 2= DC 101-120 Sweatin= No chills or Flushing Restless Observation: 0= Sits Still Pupil Size: 0= Normal to Room Light Bone or Joint Aches: 0= None Runny Nose/ Eye Tearin= None GI Upset > 30mins: 0= None Tremor Observation of Outstretched Hands: 0= None Yawning Observation: 0= None Anxiety or Irritability: 1=Feels Anxious/Irritable Goose Flesh Skin: 0=Smooth Skin COWS Score: 3 BHS Progress Note (SOAP) Subjective: anxiety i am feeling better Objective: 04/03/20 10:02 Vital Signs Temperature 97.8 F 04/03/20 06:58 Pulse Rate 88 04/03/20 06:58 Respiratory Rate 18 04/03/20 06:58 Blood Pressure 103/66 04/03/20 06:58 O2 Sat by Pulse Oximetry (%) 99 04/03/20 06:58 aaox3 ambulating no acute distress Assessment: 04/03/20 10:02 mild withdrawals Plan: complete detox today d/c this afternoon
[2020-04-03 10:44] VITALS: BP 116/71; PULSE 103; TEMP 97.1
[2020-04-04] MEDS ORDERED: METHADONE HCL 5 MG TABLET (FOR DETOX USE ONLY) PO ONE (06:00)
== END 2020-04-03 11:49 | disposition home or self-care (01) | DRG 773 ==
LOC: YASAS 12:24 → Y6N 15:12
PROVIDERS: ADMIT Allergy & Immunology; ATTEND Allergy & Immunology
PROC: HZ2ZZZZ Detoxification Services for Substance Abuse Treatment (ICD-10-PCS; principal; 2020-03-30)
DX: F11.23 Opioid dependence with withdrawal (principal); F14.20 Cocaine dependence, uncomplicated; F12.20 Cannabis dependence, uncomplicated; F17.210 Nicotine dependence, cigarettes, uncomplicated
CPT/HCPCS: 36415; 80053; 85027; 86780; 87389; Q0162; U0003

== ENCOUNTER 2020-07-11 09:36 | Inpatient (IN) | payer OTHER ==
[2020-07-11 10:40] VITALS: BMI 28.9
[2020-07-11] MEDS ORDERED: MAGNESIUM HYDROX 2400MG/30ML ORAL SUSPENSION 30 ML CUP PO PRN (10:53)
[2020-07-11] MEDS ORDERED: IBUPROFEN 400 MG TABLET (FP) PO PRN (10:53)
[2020-07-11] MEDS ORDERED: ONDANSETRON *ODT* 4 MG TABLET SL PRN (10:53)
[2020-07-11] MEDS ORDERED: MAG HYDROX/AL HYDROX/SIMETH 30 ML UNIT-DOSE CUP PO PRN (10:53)
[2020-07-11] MEDS ORDERED: ACETAMINOPHEN 325 MG TABLET (FP) PO PRN ×2 (10:53)
[2020-07-11] MEDS ORDERED: BISMUTH SUBSALICYLATE 524 MG/30 ML UD PO PRN (10:53)
[2020-07-11] MEDS ORDERED: MAGNESIUM CITRATE 300 ML BOTTLE PO PRN (10:53)
[2020-07-11] MEDS ORDERED: MENTHOL/PHENOL 1 EACH UD MM PRN (10:53)
[2020-07-11] MEDS ORDERED: METHADONE HCL 10 MG TABLET (FOR DETOX USE ONLY) PO ONE (11:15)
[2020-07-11] MEDS: PRENATAL VITAMINS W/ FOLIC ACID TABLET (FP) PO SCH (11:34)
[2020-07-11] MEDS: NICOTINE 7 MG/24 HOURS TOPICAL PATCH TD SCH (11:34)
[2020-07-11] MEDS: diazePAM 5 MG TABLET PO PRN ×2 (13:38→20:14)
[2020-07-11] MEDS: hydrOXYzine PAMOATE 25 MG CAPSULE (FP) PO SCH ×3 (14:10→22:03)
[2020-07-11 14:58] LABS: MCH 26.1 pg (25.7-33.7); MCHC 31.6 g/dl (32.0-35.9); MEAN CELL VOLUME 82.6 fl (80-96); MEAN PLT VOLUME 8.4 fl (7.5-11.1); PLATELET COUNT 256 K/MM3 (134-434); RBC 4.97 M/mm3 (4.00-5.60); RDW 15.5 % (11.9-15.9); WHITE BLOOD COUNT 6.8 K/mm3 (4.0-10.0)
[2020-07-11 15:07] LABS: POTASSIUM 3.7 mmol/L (3.5-5.1)
[2020-07-11 15:12] LABS: CALCIUM 9.3 mg/dL (8.5-10.1)
[2020-07-11 15:16] LABS: CREATININE 1.1 mg/dL (0.55-1.3)
[2020-07-11 15:17] LABS: BILIRUBIN,TOTAL 1.1 mg/dL (0.2-1); TOT PROT 6.9 g/dl (6.4-8.2)
[2020-07-11] MEDS: NICOTINE POLACRILEX 2 MG GUM BUC PRN (16:02)
[2020-07-11 16:05] LABS: HIV INTERPRETATION NEGATIVE (NEGATIVE)
[2020-07-11] MEDS: THIAMINE HCL 100 MG TABLET (FP) PO SCH (22:02)
[2020-07-11] MEDS: MELATONIN 5 MG TABLETS PO SCH (22:02)
[2020-07-11] MEDS: cloNIDine HCL 0.1 MG TABLET PO PRN (22:03)
[2020-07-12] MEDS: diazePAM 5 MG TABLET PO PRN ×4 (02:35→22:17)
[2020-07-12] MEDS: hydrOXYzine PAMOATE 25 MG CAPSULE (FP) PO SCH ×5 (05:38→22:15)
[2020-07-12] MEDS ORDERED: METHADONE HCL 5 MG TABLET (FOR DETOX USE ONLY) ONE (09:35)
[2020-07-12] MEDS ORDERED: METHADONE HCL 10 MG TABLET (FOR DETOX USE ONLY) ONE (09:35)
[2020-07-12] MEDS ORDERED: METHADONE (DETOX) 20 MG, METHADONE (DETOX) 5 MG PO ONE (10:00)
[2020-07-12] MEDS: METHOCARBAMOL 500 MG TABLET PO PRN ×2 (10:01→16:57)
[2020-07-12] MEDS: PRENATAL VITAMINS W/ FOLIC ACID TABLET (FP) PO SCH (10:01)
[2020-07-12] MEDS: NICOTINE 7 MG/24 HOURS TOPICAL PATCH TD SCH (10:02)
[2020-07-12] MEDS: MELATONIN 5 MG TABLETS PO SCH (22:15)
[2020-07-12] MEDS: THIAMINE HCL 100 MG TABLET (FP) PO SCH (22:15)
[2020-07-13] MEDS: cloNIDine HCL 0.1 MG TABLET PO PRN (03:02)
[2020-07-13] MEDS: METHOCARBAMOL 500 MG TABLET PO PRN ×3 (03:02→22:02)
[2020-07-13] MEDS: hydrOXYzine PAMOATE 25 MG CAPSULE (FP) PO SCH ×5 (05:45→22:00)
[2020-07-13] MEDS ORDERED: METHADONE HCL 10 MG TABLET (FOR DETOX USE ONLY) PO ONE (10:00)
[2020-07-13] MEDS: PRENATAL VITAMINS W/ FOLIC ACID TABLET (FP) PO SCH (10:16)
[2020-07-13] MEDS: NICOTINE 7 MG/24 HOURS TOPICAL PATCH TD SCH (10:16)
[2020-07-13] MEDS: diazePAM 5 MG TABLET PO PRN ×3 (11:55→20:22)
[2020-07-13] MEDS ORDERED: FLU VACCINE (FLULAVAL) PF 60 MCG/0.5 ML SYRINGE 2020-2021 IM ONE (12:00)
[2020-07-13] MEDS: MELATONIN 5 MG TABLETS PO SCH (22:00)
[2020-07-13] MEDS: THIAMINE HCL 100 MG TABLET (FP) PO SCH (22:01)
[2020-07-14] MEDS: diazePAM 5 MG TABLET PO PRN ×5 (04:31→22:04)
[2020-07-14] MEDS: hydrOXYzine PAMOATE 25 MG CAPSULE (FP) PO SCH ×5 (06:22→22:03)
[2020-07-14] MEDS ORDERED: METHADONE HCL 10 MG TABLET (FOR DETOX USE ONLY) ONE (08:51)
[2020-07-14] MEDS ORDERED: METHADONE HCL 5 MG TABLET (FOR DETOX USE ONLY) ONE (08:51)
[2020-07-14] MEDS ORDERED: METHADONE (DETOX) 10 MG, METHADONE (DETOX) 5 MG PO ONE (10:00)
[2020-07-14] MEDS: PRENATAL VITAMINS W/ FOLIC ACID TABLET (FP) PO SCH (10:37)
[2020-07-14] MEDS: NICOTINE 7 MG/24 HOURS TOPICAL PATCH TD SCH (10:37)
[2020-07-14] MEDS: METHOCARBAMOL 500 MG TABLET PO PRN ×2 (15:15→22:16)
[2020-07-14] MEDS: MELATONIN 5 MG TABLETS PO SCH (22:03)
[2020-07-14] MEDS: THIAMINE HCL 100 MG TABLET (FP) PO SCH (22:04)
[2020-07-14] MEDS: NICOTINE POLACRILEX 2 MG GUM BUC PRN (22:55)
[2020-07-15] MEDS: diazePAM 5 MG TABLET PO PRN ×5 (02:55→22:10)
[2020-07-15] MEDS: hydrOXYzine PAMOATE 25 MG CAPSULE (FP) PO SCH ×5 (05:28→22:09)
[2020-07-15] MEDS: PRENATAL VITAMINS W/ FOLIC ACID TABLET (FP) PO SCH (09:11)
[2020-07-15] MEDS: NICOTINE 7 MG/24 HOURS TOPICAL PATCH TD SCH (09:11)
[2020-07-15] MEDS ORDERED: METHADONE HCL 10 MG TABLET (FOR DETOX USE ONLY) PO ONE (10:00)
[2020-07-15] MEDS: MELATONIN 5 MG TABLETS PO SCH (22:09)
[2020-07-15] MEDS: THIAMINE HCL 100 MG TABLET (FP) PO SCH (22:09)
[2020-07-16] MEDS: hydrOXYzine PAMOATE 25 MG CAPSULE (FP) PO SCH ×2 (05:45→11:07)
[2020-07-16] MEDS ORDERED: METHADONE HCL 5 MG TABLET (FOR DETOX USE ONLY) PO ONE (06:00)
[2020-07-16] MEDS: diazePAM 5 MG TABLET PO PRN (08:34)
[2020-07-16 10:57] VITALS: BP 131/85; PULSE 114; TEMP 96.6
[2020-07-16] MEDS: PRENATAL VITAMINS W/ FOLIC ACID TABLET (FP) PO SCH (11:07)
[2020-07-16] MEDS: NICOTINE 7 MG/24 HOURS TOPICAL PATCH TD SCH (11:07)
== END 2020-07-16 09:17 | disposition home or self-care (01) | DRG 773 ==
LOC: YASAS 09:36 → Y3N 11:00
PROVIDERS: ADMIT Allergy & Immunology; ATTEND Allergy & Immunology
PROC: HZ2ZZZZ Detoxification Services for Substance Abuse Treatment (ICD-10-PCS; principal; 2020-07-11)
DX: F11.23 Opioid dependence with withdrawal (principal); F14.20 Cocaine dependence, uncomplicated; F12.20 Cannabis dependence, uncomplicated; F17.210 Nicotine dependence, cigarettes, uncomplicated
CPT/HCPCS: 36415; 80053; 85027; 86780; 87389; C9803; G0008; J0735; Q2036; U0003

== ENCOUNTER 2020-07-19 15:12 | Inpatient (IN) | payer OTHER ==
[2020-07-19 17:46] VITALS: BMI 30.2
[2020-07-19] MEDS ORDERED: hydrOXYzine PAMOATE 25 MG CAPSULE (FP) PO PRN ×2 (18:18→20:40)
[2020-07-19] MEDS ORDERED: IBUPROFEN 400 MG TABLET (FP) PO PRN ×2 (18:18→20:40)
[2020-07-19] MEDS ORDERED: MAG HYDROX/AL HYDROX/SIMETH 30 ML UNIT-DOSE CUP PO PRN ×2 (18:18→20:40)
[2020-07-19] MEDS ORDERED: MAGNESIUM HYDROX 2400MG/30ML ORAL SUSPENSION 30 ML CUP PO PRN ×2 (18:18→20:40)
[2020-07-19] MEDS ORDERED: MAGNESIUM CITRATE 300 ML BOTTLE PO PRN ×2 (18:18→20:40)
[2020-07-19] MEDS ORDERED: ACETAMINOPHEN 325 MG TABLET (FP) PO PRN ×3 (18:18→20:40)
[2020-07-19] MEDS ORDERED: NICOTINE POLACRILEX 2 MG GUM BC PRN (18:18)
[2020-07-19] MEDS ORDERED: P-EPHED 60MG/TRIPROLIDI 2.5MG TABLET PO PRN ×2 (18:18→20:40)
[2020-07-19] MEDS ORDERED: LOPERAMIDE HCL 2 MG CAPSULE PO PRN (18:18)
[2020-07-19] MEDS ORDERED: guaiFENesin 200 MG/10 ML 10 ML UNIT-DOSE CUPS PO PRN ×2 (18:18→20:40)
[2020-07-19] MEDS ORDERED: NICOTINE POLACRILEX 2 MG GUM BUC PRN (20:40)
[2020-07-19] MEDS ORDERED: MENTHOL/PHENOL 1 EACH UD MM PRN (20:40)
[2020-07-19] MEDS ORDERED: NALOXONE HCL 0.4 MG/ML VIAL IM PRN (20:40)
[2020-07-19] MEDS ORDERED: cloNIDine HCL 0.1 MG TABLET PO PRN (20:40)
[2020-07-19] MEDS ORDERED: ONDANSETRON *ODT* 4 MG TABLET SL PRN (20:40)
[2020-07-19] MEDS ORDERED: BISMUTH SUBSALICYLATE 524 MG/30 ML UD PO PRN (20:40)
[2020-07-19] MEDS ORDERED: MELATONIN 5 MG TABLETS PO SCH ×2 (22:00)
[2020-07-19] MEDS ORDERED: THIAMINE HCL 100 MG TABLET (FP) PO SCH (22:00)
[2020-07-19] MEDS: THIAMINE HCL 100 MG TABLET (FP) PO SCH (22:19)
[2020-07-19] MEDS: METHOCARBAMOL 500 MG TABLET PO PRN (22:19)
[2020-07-19] MEDS: diazePAM 5 MG TABLET PO PRN (22:19)
[2020-07-20] MEDS: diazePAM 5 MG TABLET PO PRN ×4 (06:27→22:08)
[2020-07-20] MEDS ORDERED: METHADONE HCL 10 MG TABLET (FOR DETOX USE ONLY) PO ONE (10:00)
[2020-07-20] MEDS ORDERED: PRENATAL VITAMINS W/ FOLIC ACID TABLET (FP) PO SCH (10:00)
[2020-07-20] MEDS ORDERED: NICOTINE 7 MG/24 HOURS TOPICAL PATCH TD SCH (10:00)
[2020-07-20 10:30] LABS: HEMATOCRIT 40.6 % (35.4-49); HEMOGLOBIN 13.1 GM/dL (11.7-16.9); MCH 26.8 pg (25.7-33.7); MCHC 32.4 g/dl (32.0-35.9); MEAN CELL VOLUME 82.7 fl (80-96); MEAN PLT VOLUME 8.6 fl (7.5-11.1); PLATELET COUNT 235 K/MM3 (134-434); RBC 4.91 M/mm3 (4.00-5.60); RDW 16.2 % (11.9-15.9); WHITE BLOOD COUNT 5.7 K/mm3 (4.0-10.0)
[2020-07-20] MEDS: BACITRACIN 0.9 GM PACKET TP SCH ×2 (10:31→22:02)
[2020-07-20] MEDS: NICOTINE 14 MG/24 HOURS TOPICAL PATCH TD SCH (10:35)
[2020-07-20 10:37] LABS: POTASSIUM 4.5 mmol/L (3.5-5.1)
[2020-07-20 10:44] LABS: CALCIUM 9.4 mg/dL (8.5-10.1)
[2020-07-20 10:45] LABS: ALBUMIN 3.6 g/dl (3.4-5.0); BLOOD UREA NITROGEN 10.2 mg/dL (7-18)
[2020-07-20 10:48] LABS: CREATININE 0.9 mg/dL (0.55-1.3)
[2020-07-20 10:49] LABS: BILIRUBIN,TOTAL 0.8 mg/dL (0.2-1); TOT PROT 6.8 g/dl (6.4-8.2)
[2020-07-20] MEDS: PRENATAL VITAMINS W/ FOLIC ACID TABLET (FP) PO SCH (11:47)
[2020-07-20 14:03] LABS: PH,URINE 6.5 (5.0-8.0); URINE APPEARANCE CLEAR; URINE BILIRUBIN NEGATIVE (NEGATIVE); URINE COLOR YELLOW; URINE GLUCOSE (UA) NEGATIVE (NEGATIVE); URINE KETONE NEGATIVE (NEGATIVE); URINE LEUK ESTERASE NEGATIVE (NEGATIVE); URINE NITRITE NEGATIVE (NEGATIVE); URINE PROTEIN NEGATIVE (NEGATIVE)
[2020-07-20] MEDS: cloNIDine HCL 0.1 MG TABLET PO SCH (22:07)
[2020-07-20] MEDS: THIAMINE HCL 100 MG TABLET (FP) PO SCH (22:08)
[2020-07-21] MEDS: diazePAM 5 MG TABLET PO PRN ×4 (04:36→19:05)
[2020-07-21] MEDS ORDERED: METHADONE HCL 10 MG TABLET (FOR DETOX USE ONLY) ONE (09:21)
[2020-07-21] MEDS ORDERED: METHADONE HCL 5 MG TABLET (FOR DETOX USE ONLY) ONE (09:21)
[2020-07-21] MEDS ORDERED: METHADONE (DETOX) 10 MG, METHADONE (DETOX) 5 MG PO ONE (10:00)
[2020-07-21] MEDS ORDERED: METHADONE HCL 10 MG TABLET (FOR DETOX USE ONLY) PO ONE (10:00)
[2020-07-21] MEDS: PRENATAL VITAMINS W/ FOLIC ACID TABLET (FP) PO SCH (10:22)
[2020-07-21] MEDS: BACITRACIN 0.9 GM PACKET TP SCH ×2 (10:23→22:04)
[2020-07-21] MEDS: NICOTINE 14 MG/24 HOURS TOPICAL PATCH TD SCH (10:25)
[2020-07-21] MEDS: cloNIDine HCL 0.1 MG TABLET PO SCH ×2 (10:30→22:04)
[2020-07-21] MEDS: METHOCARBAMOL 500 MG TABLET PO PRN ×2 (12:05→19:05)
[2020-07-21] MEDS: THIAMINE HCL 100 MG TABLET (FP) PO SCH (22:04)
[2020-07-21] MEDS: MELATONIN 5 MG TABLETS PO PRN (22:05)
[2020-07-22] MEDS: diazePAM 5 MG TABLET PO PRN ×5 (01:13→18:26)
[2020-07-22] MEDS: METHOCARBAMOL 500 MG TABLET PO PRN ×3 (05:59→18:26)
[2020-07-22] MEDS ORDERED: METHADONE HCL 10 MG TABLET (FOR DETOX USE ONLY) PO ONE (10:00)
[2020-07-22] MEDS: BACITRACIN 0.9 GM PACKET TP SCH ×2 (10:07→22:02)
[2020-07-22] MEDS: PRENATAL VITAMINS W/ FOLIC ACID TABLET (FP) PO SCH (10:07)
[2020-07-22] MEDS: NICOTINE 14 MG/24 HOURS TOPICAL PATCH TD SCH (10:07)
[2020-07-22] MEDS ORDERED: hydrOXYzine PAMOATE 25 MG CAPSULE (FP) PO ONE (21:52)
[2020-07-22] MEDS: MELATONIN 5 MG TABLETS PO PRN (22:01)
[2020-07-22] MEDS: THIAMINE HCL 100 MG TABLET (FP) PO SCH (22:02)
[2020-07-23] MEDS: METHOCARBAMOL 500 MG TABLET PO PRN ×2 (00:45→07:05)
[2020-07-23] MEDS ORDERED: METHADONE HCL 5 MG TABLET (FOR DETOX USE ONLY) PO ONE (06:00)
[2020-07-23] MEDS ORDERED: hydrOXYzine PAMOATE 25 MG CAPSULE (FP) PO ONE (08:50)
[2020-07-23] MEDS: BACITRACIN 0.9 GM PACKET TP SCH (09:30)
[2020-07-23] MEDS: NICOTINE 14 MG/24 HOURS TOPICAL PATCH TD SCH (09:31)
[2020-07-23] MEDS: PRENATAL VITAMINS W/ FOLIC ACID TABLET (FP) PO SCH (09:31)
[2020-07-23 09:53] VITALS: BP 115/76; PULSE 87; TEMP 97.7
[2020-07-23 15:01] LABS: SGOT/AST 16 U/L (15-37); SGPT/ALT 101 U/L (13-61)
== END 2020-07-23 10:05 | disposition home or self-care (01) | DRG 773 ==
LOC: YASAS 15:12 → Y6N 21:25
PROVIDERS: ADMIT Allergy & Immunology; ATTEND Allergy & Immunology
PROC: HZ2ZZZZ Detoxification Services for Substance Abuse Treatment (ICD-10-PCS; principal; 2020-07-19)
DX: F11.23 Opioid dependence with withdrawal (principal); F14.20 Cocaine dependence, uncomplicated; F12.20 Cannabis dependence, uncomplicated; F10.10 Alcohol abuse, uncomplicated; F17.213 Nicotine dependence, cigarettes, with withdrawal; F19.282 Other psychoactive substance dependence with psychoactive substance-induced sleep disorder; R74.01 Elevation of levels of liver transaminase levels; L90.5 Scar conditions and fibrosis of skin; E66.9 Obesity, unspecified; Z68.30 Body mass index [BMI] 30.0-30.9, adult; Z86.59 Personal history of other mental and behavioral disorders
CPT/HCPCS: 36415; 80053; 81003; 84450; 84460; 85027; 93005; 93010; C9803; J0735; U0003

== ENCOUNTER 2020-09-29 12:05 | Inpatient (IN) | payer OTHER ==
[2020-09-29] MEDS ORDERED: NICOTINE POLACRILEX 2 MG GUM BUC PRN (13:16)
[2020-09-29] MEDS ORDERED: IBUPROFEN 400 MG TABLET (FP) PO PRN (13:16)
[2020-09-29] MEDS ORDERED: MENTHOL/PHENOL 1 EACH UD MM PRN (13:16)
[2020-09-29] MEDS ORDERED: MAGNESIUM HYDROX 2400MG/30ML ORAL SUSPENSION 30 ML CUP PO PRN (13:16)
[2020-09-29] MEDS ORDERED: BISMUTH SUBSALICYLATE 524 MG/30 ML UD PO PRN (13:16)
[2020-09-29] MEDS ORDERED: MAGNESIUM CITRATE 300 ML BOTTLE PO PRN (13:16)
[2020-09-29] MEDS ORDERED: ONDANSETRON *ODT* 4 MG TABLET SL PRN (13:16)
[2020-09-29] MEDS ORDERED: METHADONE HCL 10 MG TABLET (FOR DETOX USE ONLY) PO ONE (13:16)
[2020-09-29] MEDS ORDERED: ACETAMINOPHEN 325 MG TABLET (FP) PO PRN ×2 (13:16)
[2020-09-29] MEDS ORDERED: MAG HYDROX/AL HYDROX/SIMETH 30 ML UNIT-DOSE CUP PO PRN (13:16)
[2020-09-29] MEDS ORDERED: cloNIDine HCL 0.1 MG TABLET PO PRN (13:16)
[2020-09-29 13:30] VITALS: BMI 26.6
[2020-09-29] MEDS: hydrOXYzine PAMOATE 25 MG CAPSULE (FP) PO SCH ×3 (14:28→21:47)
[2020-09-29] MEDS: NICOTINE 21 MG/24 HOURS TOPICAL PATCH TD SCH (14:28)
[2020-09-29] MEDS: diazePAM 5 MG TABLET PO PRN ×3 (14:28→21:46)
[2020-09-29] MEDS: HYDROCORTISONE 0.5% TOPICAL CREAM 30 GM TUBE TP SCH ×2 (14:49→21:56)
[2020-09-29] MEDS: MELATONIN 5 MG TABLETS PO SCH (21:47)
[2020-09-29] MEDS: THIAMINE HCL 100 MG TABLET (FP) PO SCH (21:47)
[2020-09-30] MEDS: diazePAM 5 MG TABLET PO PRN ×5 (02:04→22:37)
[2020-09-30] MEDS: hydrOXYzine PAMOATE 25 MG CAPSULE (FP) PO SCH ×5 (06:58→22:34)
[2020-09-30] MEDS ORDERED: METHADONE HCL 10 MG TABLET (FOR DETOX USE ONLY) ONE (09:11)
[2020-09-30] MEDS ORDERED: METHADONE HCL 5 MG TABLET (FOR DETOX USE ONLY) ONE (09:12)
[2020-09-30] MEDS ORDERED: METHADONE (DETOX) 20 MG, METHADONE (DETOX) 5 MG PO ONE (10:00)
[2020-09-30] MEDS: PRENATAL VITAMINS W/ FOLIC ACID TABLET (FP) PO SCH (10:17)
[2020-09-30] MEDS: HYDROCORTISONE 0.5% TOPICAL CREAM 30 GM TUBE TP SCH ×2 (10:18→22:33)
[2020-09-30] MEDS: NICOTINE 21 MG/24 HOURS TOPICAL PATCH TD SCH (10:19)
[2020-09-30 12:47] LABS: HEMATOCRIT 35.4 % (35.4-49); HEMOGLOBIN 11.6 GM/dL (11.7-16.9); MCH 26.4 pg (25.7-33.7); MCHC 32.7 g/dl (32.0-35.9); MEAN CELL VOLUME 80.9 fl (80-96); MEAN PLT VOLUME 9.2 fl (7.5-11.1); PLATELET COUNT 230 K/MM3 (134-434); RBC 4.38 M/mm3 (4.00-5.60); RDW 14.9 % (11.9-15.9); WHITE BLOOD COUNT 4.9 K/mm3 (4.0-10.0)
[2020-09-30 12:51] LABS: ALBUMIN 3.2 g/dl (3.4-5.0); CALCIUM 8.5 mg/dL (8.5-10.1)
[2020-09-30 12:52] LABS: BLOOD UREA NITROGEN 9.4 mg/dL (7-18)
[2020-09-30 12:55] LABS: CREATININE 0.9 mg/dL (0.55-1.3)
[2020-09-30 12:56] LABS: BILIRUBIN,TOTAL 0.4 mg/dL (0.2-1)
[2020-09-30] MEDS: MELATONIN 5 MG TABLETS PO SCH (22:33)
[2020-09-30] MEDS: THIAMINE HCL 100 MG TABLET (FP) PO SCH (22:33)
[2020-09-30] MEDS: SUVOREXANT 10 MG TABLET PO PRN (22:35)
[2020-10-01] MEDS: diazePAM 5 MG TABLET PO PRN ×4 (04:05→18:54)
[2020-10-01] MEDS: hydrOXYzine PAMOATE 25 MG CAPSULE (FP) PO SCH ×2 (06:22→10:24)
[2020-10-01] MEDS ORDERED: METHADONE HCL 10 MG TABLET (FOR DETOX USE ONLY) PO ONE (10:00)
[2020-10-01] MEDS: PRENATAL VITAMINS W/ FOLIC ACID TABLET (FP) PO SCH (10:21)
[2020-10-01] MEDS: NICOTINE 21 MG/24 HOURS TOPICAL PATCH TD SCH (10:23)
[2020-10-01] MEDS: HYDROCORTISONE 0.5% TOPICAL CREAM 30 GM TUBE TP SCH ×2 (10:24→22:33)
[2020-10-01] MEDS: hydrOXYzine PAMOATE 25 MG CAPSULE (FP) PO PRN ×2 (18:54→22:33)
[2020-10-01] MEDS: THIAMINE HCL 100 MG TABLET (FP) PO SCH (22:33)
[2020-10-01] MEDS: MELATONIN 5 MG TABLETS PO SCH (22:33)
[2020-10-01] MEDS: SUVOREXANT 10 MG TABLET PO PRN (22:35)
[2020-10-02] MEDS: hydrOXYzine PAMOATE 25 MG CAPSULE (FP) PO PRN ×3 (03:48→20:02)
[2020-10-02] MEDS: diazePAM 5 MG TABLET PO PRN ×5 (03:48→22:37)
[2020-10-02] MEDS ORDERED: METHADONE HCL 10 MG TABLET (FOR DETOX USE ONLY) ONE (08:12)
[2020-10-02] MEDS ORDERED: METHADONE HCL 5 MG TABLET (FOR DETOX USE ONLY) ONE (08:13)
[2020-10-02] MEDS ORDERED: METHADONE (DETOX) 10 MG, METHADONE (DETOX) 5 MG PO ONE (10:00)
[2020-10-02] MEDS: PRENATAL VITAMINS W/ FOLIC ACID TABLET (FP) PO SCH (10:14)
[2020-10-02] MEDS: NICOTINE 21 MG/24 HOURS TOPICAL PATCH TD SCH (10:15)
[2020-10-02] MEDS: HYDROCORTISONE 0.5% TOPICAL CREAM 30 GM TUBE TP SCH ×2 (10:16→22:35)
[2020-10-02 13:59] LABS: BASO % 0.8 % (0-2.0); EOS % 6.7 % (0-4.5); HEMATOCRIT 39.6 % (35.4-49); HEMOGLOBIN 13.1 GM/dL (11.7-16.9); LYMPH % 40.4 % (8-40); MCH 26.6 pg (25.7-33.7); MCHC 33.1 g/dl (32.0-35.9); MEAN CELL VOLUME 80.4 fl (80-96); MEAN PLT VOLUME 9.1 fl (7.5-11.1); MONO % 11.6 % (3.8-10.2); NEUT % 40.5 % (42.8-82.8); PLATELET COUNT 251 K/MM3 (134-434); RBC 4.92 M/mm3 (4.00-5.60); RDW 14.9 % (11.9-15.9); WHITE BLOOD COUNT 5.3 K/mm3 (4.0-10.0)
[2020-10-02] MEDS: METHOCARBAMOL 500 MG TABLET PO PRN ×2 (14:50→20:04)
[2020-10-02] MEDS: THIAMINE HCL 100 MG TABLET (FP) PO SCH (22:37)
[2020-10-02] MEDS: SUVOREXANT 10 MG TABLET PO PRN (22:37)
[2020-10-02] MEDS: MELATONIN 5 MG TABLETS PO SCH (22:37)
[2020-10-03] MEDS: diazePAM 5 MG TABLET PO PRN ×5 (04:33→21:16)
[2020-10-03] MEDS: hydrOXYzine PAMOATE 25 MG CAPSULE (FP) PO PRN ×5 (04:33→21:16)
[2020-10-03] MEDS: METHOCARBAMOL 500 MG TABLET PO PRN ×2 (08:51→16:58)
[2020-10-03] MEDS ORDERED: METHADONE HCL 10 MG TABLET (FOR DETOX USE ONLY) PO ONE (10:00)
[2020-10-03] MEDS: PRENATAL VITAMINS W/ FOLIC ACID TABLET (FP) PO SCH (10:20)
[2020-10-03] MEDS: HYDROCORTISONE 0.5% TOPICAL CREAM 30 GM TUBE TP SCH ×2 (10:21→21:16)
[2020-10-03] MEDS: NICOTINE 21 MG/24 HOURS TOPICAL PATCH TD SCH (10:22)
[2020-10-03 20:59] VITALS: TEMP 96.9
[2020-10-03] MEDS: THIAMINE HCL 100 MG TABLET (FP) PO SCH (21:16)
[2020-10-03] MEDS: MELATONIN 5 MG TABLETS PO SCH (21:16)
[2020-10-03] MEDS ORDERED: SUVOREXANT 10 MG TABLET PO PRN (22:00)
[2020-10-04] MEDS: METHOCARBAMOL 500 MG TABLET PO PRN (01:55)
[2020-10-04] MEDS: diazePAM 5 MG TABLET PO PRN ×2 (01:55→07:31)
[2020-10-04] MEDS ORDERED: METHADONE HCL 5 MG TABLET (FOR DETOX USE ONLY) PO ONE (06:00)
[2020-10-04 06:54] VITALS: BP 100/60; PULSE 80
[2020-10-04] MEDS: hydrOXYzine PAMOATE 25 MG CAPSULE (FP) PO PRN (07:28)
== END 2020-10-04 09:00 | disposition home or self-care (01) | DRG 773 ==
LOC: YASAS 12:05 → Y3N 13:38
PROVIDERS: ADMIT Allergy & Immunology; ATTEND Allergy & Immunology
PROC: HZ2ZZZZ Detoxification Services for Substance Abuse Treatment (ICD-10-PCS; principal; 2020-09-29)
DX: F11.23 Opioid dependence with withdrawal (principal); F14.20 Cocaine dependence, uncomplicated; F12.20 Cannabis dependence, uncomplicated; F17.210 Nicotine dependence, cigarettes, uncomplicated; F19.282 Other psychoactive substance dependence with psychoactive substance-induced sleep disorder; F19.24 Other psychoactive substance dependence with psychoactive substance-induced mood disorder; G47.00 Insomnia, unspecified
CPT/HCPCS: 36415; 80053; 85025; 85027; 86780; 93005; 93010; C9803; U0003

== ENCOUNTER 2020-10-19 11:32 | Inpatient (IN) | payer OTHER ==
[2020-10-19 12:44] VITALS: BMI 27.5
[2020-10-19] MEDS ORDERED: cloNIDine HCL 0.1 MG TABLET PO PRN (13:44)
[2020-10-19] MEDS ORDERED: NICOTINE POLACRILEX 2 MG GUM BUC PRN (13:44)
[2020-10-19] MEDS ORDERED: MAG HYDROX/AL HYDROX/SIMETH 30 ML UNIT-DOSE CUP PO PRN (13:44)
[2020-10-19] MEDS ORDERED: BISMUTH SUBSALICYLATE 262 MG/15 ML BTL PO PRN (13:44)
[2020-10-19] MEDS ORDERED: ONDANSETRON *ODT* 4 MG TABLET SL PRN (13:44)
[2020-10-19] MEDS ORDERED: MAGNESIUM HYDROX 2400MG/30ML ORAL SUSPENSION 30 ML CUP PO PRN (13:44)
[2020-10-19] MEDS ORDERED: ACETAMINOPHEN 325 MG TABLET (FP) PO PRN (13:44)
[2020-10-19] MEDS ORDERED: MENTHOL/PHENOL 1 EACH UD MM PRN (13:44)
[2020-10-19] MEDS ORDERED: MAGNESIUM CITRATE 300 ML BOTTLE PO PRN (13:44)
[2020-10-19] MEDS ORDERED: METHADONE HCL 10 MG TABLET (FOR DETOX USE ONLY) PO ONE (13:44)
[2020-10-19] MEDS ORDERED: IBUPROFEN 400 MG TABLET (FP) PO PRN (13:44)
[2020-10-19] MEDS ORDERED: NALOXONE (NARCAN) HCL 4 MG/0.1 ML SPRAY NS SCH (13:45)
[2020-10-19] MEDS: diazePAM 5 MG TABLET PO PRN ×2 (14:22→20:30)
[2020-10-19] MEDS: hydrOXYzine PAMOATE 25 MG CAPSULE (FP) PO SCH ×3 (14:24→22:05)
[2020-10-19 14:48] LABS: HEMATOCRIT 35.3 % (35.4-49); HEMOGLOBIN 11.6 GM/dL (11.7-16.9); MCH 26.5 pg (25.7-33.7); MCHC 32.9 g/dl (32.0-35.9); MEAN CELL VOLUME 80.8 fl (80-96); MEAN PLT VOLUME 8.7 fl (7.5-11.1); PLATELET COUNT 271 K/MM3 (134-434); RBC 4.37 M/mm3 (4.00-5.60); RDW 15.1 % (11.9-15.9); WHITE BLOOD COUNT 4.3 K/mm3 (4.0-10.0)
[2020-10-19 15:13] LABS: POTASSIUM 4.5 mmol/L (3.5-5.1)
[2020-10-19 15:17] LABS: CALCIUM 8.9 mg/dL (8.5-10.1)
[2020-10-19 15:18] LABS: ALBUMIN 3.7 g/dl (3.4-5.0)
[2020-10-19 15:22] LABS: BILIRUBIN,TOTAL 0.4 mg/dL (0.2-1)
[2020-10-19] MEDS: MELATONIN 5 MG TABLETS PO SCH (22:05)
[2020-10-19] MEDS: THIAMINE HCL 100 MG TABLET (FP) PO SCH (22:05)
[2020-10-19] MEDS: BACITRACIN 0.9 GM PACKET TP SCH (22:05)
[2020-10-20] MEDS: diazePAM 5 MG TABLET PO PRN ×4 (03:11→22:00)
[2020-10-20] MEDS: hydrOXYzine PAMOATE 25 MG CAPSULE (FP) PO SCH ×5 (06:21→22:01)
[2020-10-20] MEDS ORDERED: METHADONE HCL 10 MG TABLET (FOR DETOX USE ONLY) ONE (09:17)
[2020-10-20] MEDS ORDERED: METHADONE HCL 5 MG TABLET (FOR DETOX USE ONLY) ONE (09:17)
[2020-10-20] MEDS ORDERED: METHADONE (DETOX) 20 MG, METHADONE (DETOX) 5 MG PO ONE (10:00)
[2020-10-20] MEDS: BACITRACIN 0.9 GM PACKET TP SCH ×2 (10:31→22:02)
[2020-10-20] MEDS: PRENATAL VITAMINS W/ FOLIC ACID TABLET (FP) PO SCH (10:32)
[2020-10-20] MEDS: THIAMINE HCL 100 MG TABLET (FP) PO SCH (22:01)
[2020-10-20] MEDS: MELATONIN 5 MG TABLETS PO SCH (22:02)
[2020-10-21] MEDS: diazePAM 5 MG TABLET PO PRN ×2 (05:37→12:19)
[2020-10-21] MEDS: hydrOXYzine PAMOATE 25 MG CAPSULE (FP) PO SCH ×5 (05:37→22:06)
[2020-10-21] MEDS ORDERED: METHADONE HCL 10 MG TABLET (FOR DETOX USE ONLY) PO ONE (10:00)
[2020-10-21] MEDS: PRENATAL VITAMINS W/ FOLIC ACID TABLET (FP) PO SCH (10:51)
[2020-10-21] MEDS: BACITRACIN 0.9 GM PACKET TP SCH ×2 (10:51→22:07)
[2020-10-21] MEDS: THIAMINE HCL 100 MG TABLET (FP) PO SCH (22:06)
[2020-10-21] MEDS: MELATONIN 5 MG TABLETS PO SCH (22:06)
[2020-10-22] MEDS: hydrOXYzine PAMOATE 25 MG CAPSULE (FP) PO SCH ×7 (05:16→22:06)
[2020-10-22] MEDS: ACETAMINOPHEN 325 MG TABLET (FP) PO PRN ×2 (05:16→19:16)
[2020-10-22] MEDS ORDERED: METHADONE HCL 5 MG TABLET (FOR DETOX USE ONLY) ONE (09:10)
[2020-10-22] MEDS ORDERED: METHADONE HCL 10 MG TABLET (FOR DETOX USE ONLY) ONE (09:10)
[2020-10-22] MEDS ORDERED: METHADONE (DETOX) 10 MG, METHADONE (DETOX) 5 MG PO ONE (10:00)
[2020-10-22] MEDS: BACITRACIN 0.9 GM PACKET TP SCH ×2 (10:08→21:17)
[2020-10-22] MEDS: PRENATAL VITAMINS W/ FOLIC ACID TABLET (FP) PO SCH (10:09)
[2020-10-22] MEDS ORDERED: diazePAM 5 MG TABLET PO PRN (10:52)
[2020-10-22] MEDS: THIAMINE HCL 100 MG TABLET (FP) PO SCH (21:17)
[2020-10-22] MEDS: METHOCARBAMOL 500 MG TABLET PO PRN (21:17)
[2020-10-22] MEDS: MELATONIN 5 MG TABLETS PO SCH (22:06)
[2020-10-23] MEDS ORDERED: diphenhydrAMINE HCL 25 MG CAPSULE (FP) PO ONE (00:54)
[2020-10-23] MEDS: hydrOXYzine PAMOATE 25 MG CAPSULE (FP) PO SCH ×5 (05:26→21:34)
[2020-10-23] MEDS: METHOCARBAMOL 500 MG TABLET PO PRN ×3 (05:27→19:09)
[2020-10-23] MEDS ORDERED: METHADONE HCL 10 MG TABLET (FOR DETOX USE ONLY) PO ONE (10:00)
[2020-10-23] MEDS: PRENATAL VITAMINS W/ FOLIC ACID TABLET (FP) PO SCH (10:27)
[2020-10-23] MEDS: BACITRACIN 0.9 GM PACKET TP SCH ×2 (10:27→21:34)
[2020-10-23] MEDS ORDERED: diazePAM 5 MG TABLET PO ONE (11:25)
[2020-10-23] MEDS: MELATONIN 5 MG TABLETS PO SCH (21:34)
[2020-10-23] MEDS: THIAMINE HCL 100 MG TABLET (FP) PO SCH (21:35)
[2020-10-23] MEDS ORDERED: SUVOREXANT 10 MG TABLET PO PRN (22:00)
[2020-10-24] MEDS: METHOCARBAMOL 500 MG TABLET PO PRN (05:35)
[2020-10-24] MEDS: hydrOXYzine PAMOATE 25 MG CAPSULE (FP) PO SCH ×2 (05:36→10:36)
[2020-10-24] MEDS ORDERED: METHADONE HCL 5 MG TABLET (FOR DETOX USE ONLY) PO ONE (06:00)
[2020-10-24] MEDS ORDERED: diazePAM 5 MG TABLET PO ONE (06:00)
[2020-10-24 06:59] VITALS: PULSE 76
[2020-10-24] MEDS: BACITRACIN 0.9 GM PACKET TP SCH (10:36)
[2020-10-24] MEDS: PRENATAL VITAMINS W/ FOLIC ACID TABLET (FP) PO SCH (10:36)
[2020-10-24 11:20] VITALS: BP 118/63; TEMP 97.5
== END 2020-10-24 11:22 | disposition other institution (70) | DRG 773 ==
LOC: YASAS 11:32 → Y6N 12:51
PROVIDERS: ADMIT Allergy & Immunology; ATTEND Allergy & Immunology
PROC: HZ2ZZZZ Detoxification Services for Substance Abuse Treatment (ICD-10-PCS; principal; 2020-10-19)
DX: F11.23 Opioid dependence with withdrawal (principal); F14.20 Cocaine dependence, uncomplicated; F12.20 Cannabis dependence, uncomplicated; F17.210 Nicotine dependence, cigarettes, uncomplicated; F19.282 Other psychoactive substance dependence with psychoactive substance-induced sleep disorder; F19.24 Other psychoactive substance dependence with psychoactive substance-induced mood disorder; D64.9 Anemia, unspecified; Z56.0 Unemployment, unspecified; Z59.0 Homelessness
CPT/HCPCS: 36415; 80053; 85027; 86780; C9803; U0003

== ENCOUNTER 2020-10-24 11:29 | Inpatient (IN) | payer OTHER ==
[2020-10-24] MEDS ORDERED: P-EPHED 60MG/TRIPROLIDI 2.5MG TABLET PO PRN (12:15)
[2020-10-24] MEDS ORDERED: NICOTINE POLACRILEX 2 MG GUM BUC PRN (12:15)
[2020-10-24] MEDS ORDERED: MAGNESIUM CITRATE 300 ML BOTTLE PO PRN (12:15)
[2020-10-24] MEDS ORDERED: MAG HYDROX/AL HYDROX/SIMETH 30 ML UNIT-DOSE CUP PO PRN (12:15)
[2020-10-24] MEDS ORDERED: MENTHOL/PHENOL 1 EACH UD MM PRN (12:15)
[2020-10-24] MEDS ORDERED: MAGNESIUM HYDROX 2400MG/30ML ORAL SUSPENSION 30 ML CUP PO PRN (12:15)
[2020-10-24] MEDS ORDERED: LOPERAMIDE HCL 2 MG CAPSULE PO PRN (12:15)
[2020-10-24] MEDS: hydrOXYzine PAMOATE 25 MG CAPSULE (FP) PO PRN ×2 (14:41→21:38)
[2020-10-24] MEDS: IBUPROFEN 400 MG TABLET (FP) PO PRN (17:17)
[2020-10-24] MEDS: THIAMINE HCL 100 MG TABLET (FP) PO SCH (21:37)
[2020-10-24] MEDS ORDERED: SUVOREXANT 10 MG TABLET PO PRN (22:00)
[2020-10-24] MEDS ORDERED: MELATONIN 5 MG TABLETS PO SCH (22:00)
[2020-10-25] MEDS: PRENATAL VITAMINS W/ FOLIC ACID TABLET (FP) PO SCH (09:48)
[2020-10-25] MEDS: NICOTINE 7 MG/24 HOURS TOPICAL PATCH TD SCH (09:49)
[2020-10-25] MEDS: hydrOXYzine PAMOATE 25 MG CAPSULE (FP) PO PRN ×2 (09:49→13:23)
[2020-10-25] MEDS: ACETAMINOPHEN 325 MG TABLET (FP) PO PRN (13:03)
[2020-10-25] MEDS: hydrOXYzine PAMOATE 50 MG CAPSULE (FP) PO PRN ×2 (15:26→19:30)
[2020-10-25] MEDS: busPIRone HCL 10 MG TABLET (FP) PO SCH (21:20)
[2020-10-25] MEDS: THIAMINE HCL 100 MG TABLET (FP) PO SCH (21:20)
[2020-10-25] MEDS ORDERED: SUVOREXANT 15 MG TABLET PO PRN (22:00)
[2020-10-26] MEDS: IBUPROFEN 400 MG TABLET (FP) PO PRN (02:28)
[2020-10-26] MEDS: hydrOXYzine PAMOATE 50 MG CAPSULE (FP) PO PRN ×4 (02:30→21:44)
[2020-10-26] MEDS: busPIRone HCL 10 MG TABLET (FP) PO SCH ×2 (09:31→21:44)
[2020-10-26] MEDS: PRENATAL VITAMINS W/ FOLIC ACID TABLET (FP) PO SCH (09:31)
[2020-10-26] MEDS: NICOTINE 7 MG/24 HOURS TOPICAL PATCH TD SCH (09:31)
[2020-10-26] MEDS: ACETAMINOPHEN 325 MG TABLET (FP) PO PRN (14:20)
[2020-10-26] MEDS: THIAMINE HCL 100 MG TABLET (FP) PO SCH (21:44)
[2020-10-26] MEDS: SUVOREXANT 20 MG TABLET PO PRN (21:46)
[2020-10-27] MEDS: hydrOXYzine PAMOATE 50 MG CAPSULE (FP) PO PRN ×5 (06:03→21:16)
[2020-10-27] MEDS: PRENATAL VITAMINS W/ FOLIC ACID TABLET (FP) PO SCH (10:05)
[2020-10-27] MEDS: busPIRone HCL 10 MG TABLET (FP) PO SCH ×2 (10:05→21:16)
[2020-10-27] MEDS: NICOTINE 7 MG/24 HOURS TOPICAL PATCH TD SCH (10:06)
[2020-10-27] MEDS: ACETAMINOPHEN 325 MG TABLET (FP) PO PRN ×2 (11:47→17:46)
[2020-10-27] MEDS: THIAMINE HCL 100 MG TABLET (FP) PO SCH (21:16)
[2020-10-27] MEDS: SUVOREXANT 20 MG TABLET PO PRN (21:18)
[2020-10-28] MEDS: NICOTINE 7 MG/24 HOURS TOPICAL PATCH TD SCH (09:57)
[2020-10-28] MEDS: busPIRone HCL 10 MG TABLET (FP) PO SCH ×2 (09:57→21:56)
[2020-10-28] MEDS: hydrOXYzine PAMOATE 50 MG CAPSULE (FP) PO PRN ×3 (09:58→18:10)
[2020-10-28] MEDS: ACETAMINOPHEN 325 MG TABLET (FP) PO PRN (09:58)
[2020-10-28] MEDS: PRENATAL VITAMINS W/ FOLIC ACID TABLET (FP) PO SCH (10:00)
[2020-10-28] MEDS: guaiFENesin 200 MG/10 ML 10 ML UNIT-DOSE CUPS PO PRN (12:31)
[2020-10-28] MEDS: THIAMINE HCL 100 MG TABLET (FP) PO SCH (21:56)
[2020-10-28] MEDS: SUVOREXANT 20 MG TABLET PO PRN (21:56)
[2020-10-29] MEDS: PRENATAL VITAMINS W/ FOLIC ACID TABLET (FP) PO SCH (10:19)
[2020-10-29] MEDS: hydrOXYzine PAMOATE 50 MG CAPSULE (FP) PO PRN ×3 (10:19→19:04)
[2020-10-29] MEDS: NICOTINE 7 MG/24 HOURS TOPICAL PATCH TD SCH (10:19)
[2020-10-29] MEDS: busPIRone HCL 10 MG TABLET (FP) PO SCH ×2 (10:19→21:25)
[2020-10-29] MEDS: guaiFENesin 200 MG/10 ML 10 ML UNIT-DOSE CUPS PO PRN ×2 (14:33→21:24)
[2020-10-29] MEDS: THIAMINE HCL 100 MG TABLET (FP) PO SCH (21:25)
[2020-10-29] MEDS: SUVOREXANT 20 MG TABLET PO PRN (21:25)
[2020-10-30] MEDS: PRENATAL VITAMINS W/ FOLIC ACID TABLET (FP) PO SCH (10:13)
[2020-10-30] MEDS: busPIRone HCL 10 MG TABLET (FP) PO SCH ×2 (10:13→22:01)
[2020-10-30] MEDS: hydrOXYzine PAMOATE 50 MG CAPSULE (FP) PO PRN ×3 (10:13→20:05)
[2020-10-30] MEDS: NICOTINE 7 MG/24 HOURS TOPICAL PATCH TD SCH (10:14)
[2020-10-30] MEDS ORDERED: BUPRENORPHINE/NALOXONE 2 MG/0.5 MG FILM PACKET SL ONE (12:24)
[2020-10-30] MEDS: METHOCARBAMOL 500 MG TABLET PO PRN ×2 (12:29→22:04)
[2020-10-30] MEDS: THIAMINE HCL 100 MG TABLET (FP) PO SCH (22:01)
[2020-10-30] MEDS: SUVOREXANT 15 MG TABLET PO PRN (22:05)
[2020-10-31] MEDS: METHOCARBAMOL 500 MG TABLET PO PRN ×3 (06:15→21:43)
[2020-10-31] MEDS: hydrOXYzine PAMOATE 50 MG CAPSULE (FP) PO PRN ×4 (06:15→21:52)
[2020-10-31] MEDS: PRENATAL VITAMINS W/ FOLIC ACID TABLET (FP) PO SCH (10:01)
[2020-10-31] MEDS: BUPRENORPHINE/NALOXONE 2 MG/0.5 MG FILM PACKET SL SCH (10:01)
[2020-10-31] MEDS: busPIRone HCL 10 MG TABLET (FP) PO SCH ×2 (10:02→21:43)
[2020-10-31] MEDS: NICOTINE 7 MG/24 HOURS TOPICAL PATCH TD SCH (10:02)
[2020-10-31] MEDS: SUVOREXANT 15 MG TABLET PO PRN (21:43)
[2020-10-31] MEDS: THIAMINE HCL 100 MG TABLET (FP) PO SCH (21:43)
[2020-11-01] MEDS: METHOCARBAMOL 500 MG TABLET PO PRN ×3 (06:20→19:31)
[2020-11-01] MEDS: hydrOXYzine PAMOATE 50 MG CAPSULE (FP) PO PRN ×4 (06:20→21:05)
[2020-11-01] MEDS: BUPRENORPHINE/NALOXONE 2 MG/0.5 MG FILM PACKET SL SCH (10:13)
[2020-11-01] MEDS: PRENATAL VITAMINS W/ FOLIC ACID TABLET (FP) PO SCH (10:13)
[2020-11-01] MEDS: NICOTINE 7 MG/24 HOURS TOPICAL PATCH TD SCH (10:13)
[2020-11-01] MEDS: busPIRone HCL 10 MG TABLET (FP) PO SCH ×2 (10:13→21:05)
[2020-11-01] MEDS: SUVOREXANT 15 MG TABLET PO PRN (21:04)
[2020-11-01] MEDS: THIAMINE HCL 100 MG TABLET (FP) PO SCH (21:05)
[2020-11-02] MEDS: METHOCARBAMOL 500 MG TABLET PO PRN ×3 (06:06→17:45)
[2020-11-02] MEDS: hydrOXYzine PAMOATE 50 MG CAPSULE (FP) PO PRN ×3 (06:06→21:14)
[2020-11-02] MEDS: NICOTINE 7 MG/24 HOURS TOPICAL PATCH TD SCH (09:41)
[2020-11-02] MEDS: PRENATAL VITAMINS W/ FOLIC ACID TABLET (FP) PO SCH (09:41)
[2020-11-02] MEDS: BUPRENORPHINE/NALOXONE 4 MG/1 MG FILM PACKET SL SCH (09:41)
[2020-11-02] MEDS: busPIRone HCL 10 MG TABLET (FP) PO SCH ×2 (09:41→21:14)
[2020-11-02] MEDS: SUVOREXANT 10 MG TABLET PO PRN (21:13)
[2020-11-02] MEDS: THIAMINE HCL 100 MG TABLET (FP) PO SCH (21:14)
[2020-11-03] MEDS: hydrOXYzine PAMOATE 50 MG CAPSULE (FP) PO PRN ×4 (06:21→21:54)
[2020-11-03] MEDS: METHOCARBAMOL 500 MG TABLET PO PRN ×3 (06:21→21:55)
[2020-11-03] MEDS: NICOTINE 7 MG/24 HOURS TOPICAL PATCH TD SCH (09:41)
[2020-11-03] MEDS: busPIRone HCL 10 MG TABLET (FP) PO SCH ×2 (09:41→21:55)
[2020-11-03] MEDS: BUPRENORPHINE/NALOXONE 4 MG/1 MG FILM PACKET SL SCH (09:41)
[2020-11-03] MEDS: PRENATAL VITAMINS W/ FOLIC ACID TABLET (FP) PO SCH (09:41)
[2020-11-03] MEDS: SUVOREXANT 10 MG TABLET PO PRN (21:54)
[2020-11-03] MEDS: THIAMINE HCL 100 MG TABLET (FP) PO SCH (21:55)
[2020-11-04] MEDS: METHOCARBAMOL 500 MG TABLET PO PRN ×3 (06:10→21:19)
[2020-11-04] MEDS: hydrOXYzine PAMOATE 50 MG CAPSULE (FP) PO PRN ×4 (06:10→22:14)
[2020-11-04] MEDS: PRENATAL VITAMINS W/ FOLIC ACID TABLET (FP) PO SCH (09:39)
[2020-11-04] MEDS: BUPRENORPHINE/NALOXONE 4 MG/1 MG FILM PACKET SL SCH (09:39)
[2020-11-04] MEDS: busPIRone HCL 10 MG TABLET (FP) PO SCH ×2 (09:39→21:20)
[2020-11-04] MEDS: NICOTINE 7 MG/24 HOURS TOPICAL PATCH TD SCH (09:39)
[2020-11-04] MEDS: SUVOREXANT 10 MG TABLET PO PRN (21:18)
[2020-11-04] MEDS: THIAMINE HCL 100 MG TABLET (FP) PO SCH (21:19)
[2020-11-05] MEDS: METHOCARBAMOL 500 MG TABLET PO PRN ×4 (06:04→21:42)
[2020-11-05] MEDS ORDERED: PT OWN MED DRAWER 7, Y5N ONE ×2 (09:00→17:12)
[2020-11-05] MEDS: BUPRENORPHINE/NALOXONE 4 MG/1 MG FILM PACKET SL SCH (09:39)
[2020-11-05] MEDS: busPIRone HCL 10 MG TABLET (FP) PO SCH ×2 (09:39→21:42)
[2020-11-05] MEDS: PRENATAL VITAMINS W/ FOLIC ACID TABLET (FP) PO SCH (09:40)
[2020-11-05] MEDS: NICOTINE 7 MG/24 HOURS TOPICAL PATCH TD SCH (09:40)
[2020-11-05] MEDS: hydrOXYzine PAMOATE 50 MG CAPSULE (FP) PO PRN ×3 (09:41→21:43)
[2020-11-05] MEDS ORDERED: BENZOYL PEROXIDE 5% 60 GM GEL..GRAM. TP ONE ×2 (16:11)
[2020-11-05] MEDS ORDERED: COLLOIDAL OATMEAL 1 BAR EACH TP PRN (16:11)
[2020-11-05] MEDS: SUVOREXANT 10 MG TABLET PO PRN (21:42)
[2020-11-05] MEDS: THIAMINE HCL 100 MG TABLET (FP) PO SCH (21:43)
[2020-11-06] MEDS: PRENATAL VITAMINS W/ FOLIC ACID TABLET (FP) PO SCH (09:52)
[2020-11-06] MEDS: busPIRone HCL 10 MG TABLET (FP) PO SCH ×2 (09:53→21:12)
[2020-11-06] MEDS: BUPRENORPHINE/NALOXONE 4 MG/1 MG FILM PACKET SL SCH (09:53)
[2020-11-06] MEDS: NICOTINE 7 MG/24 HOURS TOPICAL PATCH TD SCH (09:53)
[2020-11-06] MEDS: hydrOXYzine PAMOATE 50 MG CAPSULE (FP) PO PRN ×3 (09:54→21:12)
[2020-11-06] MEDS: METHOCARBAMOL 500 MG TABLET PO PRN ×3 (09:54→21:12)
[2020-11-06] MEDS: BENZOYL PEROXIDE 5% 60 GM GEL..GRAM. TP SCH (11:35)
[2020-11-06] MEDS: THIAMINE HCL 100 MG TABLET (FP) PO SCH (21:12)
[2020-11-06] MEDS ORDERED: PT OWN MED DRAWER 7, Y5N ONE (21:13)
[2020-11-07] MEDS: METHOCARBAMOL 500 MG TABLET PO PRN (07:24)
[2020-11-07] MEDS: hydrOXYzine PAMOATE 50 MG CAPSULE (FP) PO PRN (07:26)
[2020-11-07 08:30] VITALS: BP 115/72; PULSE 76; TEMP 97.8
[2020-11-07] MEDS: BUPRENORPHINE/NALOXONE 4 MG/1 MG FILM PACKET SL SCH (09:02)
[2020-11-07] MEDS: NICOTINE 7 MG/24 HOURS TOPICAL PATCH TD SCH (09:03)
[2020-11-07] MEDS: busPIRone HCL 10 MG TABLET (FP) PO SCH (09:03)
[2020-11-07] MEDS: PRENATAL VITAMINS W/ FOLIC ACID TABLET (FP) PO SCH (09:03)
[2020-11-07] MEDS: BENZOYL PEROXIDE 5% 60 GM GEL..GRAM. TP SCH (09:03)
== END 2020-11-07 10:15 | disposition home or self-care (01) | DRG 772 ==
LOC: YASAS 11:29 → Y5N 11:30
PROVIDERS: ADMIT Allergy & Immunology; ATTEND Allergy & Immunology
PROC: HZ42ZZZ Group Counseling for Substance Abuse Treatment, Cognitive-Behavioral (ICD-10-PCS; principal; 2020-11-07)
DX: F11.20 Opioid dependence, uncomplicated (principal); F14.20 Cocaine dependence, uncomplicated; F12.20 Cannabis dependence, uncomplicated; F17.210 Nicotine dependence, cigarettes, uncomplicated; F19.280 Other psychoactive substance dependence with psychoactive substance-induced anxiety disorder; F19.282 Other psychoactive substance dependence with psychoactive substance-induced sleep disorder; F19.24 Other psychoactive substance dependence with psychoactive substance-induced mood disorder; G47.00 Insomnia, unspecified
CPT/HCPCS: C9803; U0003

== ENCOUNTER 2020-11-23 14:44 | Inpatient (IN) | payer OTHER ==
[2020-11-23 16:46] VITALS: BMI 26.5
[2020-11-23] MEDS ORDERED: MAG HYDROX/AL HYDROX/SIMETH 30 ML UNIT-DOSE CUP PO PRN (17:47)
[2020-11-23] MEDS ORDERED: ACETAMINOPHEN 325 MG TABLET (FP) PO PRN ×2 (17:47)
[2020-11-23] MEDS ORDERED: ONDANSETRON *ODT* 4 MG TABLET SL PRN (17:47)
[2020-11-23] MEDS ORDERED: IBUPROFEN 400 MG TABLET (FP) PO PRN (17:47)
[2020-11-23] MEDS ORDERED: NICOTINE POLACRILEX 2 MG GUM BUC PRN (17:47)
[2020-11-23] MEDS ORDERED: MAGNESIUM CITRATE 300 ML BOTTLE PO PRN (17:47)
[2020-11-23] MEDS ORDERED: NALOXONE (NARCAN) HCL 4 MG/0.1 ML SPRAY NS PRN (17:47)
[2020-11-23] MEDS ORDERED: MAGNESIUM HYDROX 2400MG/30ML ORAL SUSPENSION 30 ML CUP PO PRN (17:47)
[2020-11-23] MEDS ORDERED: MENTHOL/PHENOL 1 EACH UD MM PRN (17:47)
[2020-11-23] MEDS ORDERED: BISMUTH SUBSALICYLATE 524 MG/30 ML UD PO PRN (17:47)
[2020-11-23] MEDS ORDERED: METHADONE HCL 10 MG TABLET (FOR DETOX USE ONLY) PO ONE (17:49)
[2020-11-23] MEDS ORDERED: cloNIDine HCL 0.1 MG TABLET PO PRN (17:49)
[2020-11-23] MEDS: MELATONIN 5 MG TABLETS PO SCH (22:22)
[2020-11-23] MEDS: diazePAM 5 MG TABLET PO PRN (22:22)
[2020-11-23] MEDS: THIAMINE HCL 100 MG TABLET (FP) PO SCH (22:22)
[2020-11-24] MEDS: METHOCARBAMOL 500 MG TABLET PO PRN ×3 (05:15→22:30)
[2020-11-24] MEDS: diazePAM 5 MG TABLET PO PRN ×5 (05:15→22:28)
[2020-11-24] MEDS ORDERED: METHADONE HCL 10 MG TABLET (FOR DETOX USE ONLY) ONE (08:53)
[2020-11-24] MEDS ORDERED: METHADONE HCL 5 MG TABLET (FOR DETOX USE ONLY) ONE (08:53)
[2020-11-24] MEDS ORDERED: METHADONE (DETOX) 20 MG, METHADONE (DETOX) 5 MG PO ONE (10:00)
[2020-11-24] MEDS: PRENATAL VITAMINS W/ FOLIC ACID TABLET (FP) PO SCH (10:16)
[2020-11-24] MEDS: NICOTINE 14 MG/24 HOURS TOPICAL PATCH TD SCH (10:17)
[2020-11-24] MEDS: hydrOXYzine PAMOATE 25 MG CAPSULE (FP) PO PRN (12:51)
[2020-11-24 13:53] LABS: HEMATOCRIT 39.2 % (35.4-49); HEMOGLOBIN 12.7 GM/dL (11.7-16.9); MCH 26.3 pg (25.7-33.7); MCHC 32.3 g/dl (32.0-35.9); MEAN CELL VOLUME 81.3 fl (80-96); MEAN PLT VOLUME 8.8 fl (7.5-11.1); PLATELET COUNT 351 K/MM3 (134-434); RBC 4.82 M/mm3 (4.00-5.60); RDW 15.8 % (11.9-15.9); WHITE BLOOD COUNT 5.9 K/mm3 (4.0-10.0)
[2020-11-24 13:59] LABS: CALCIUM 9.3 mg/dL (8.5-10.1)
[2020-11-24 14:01] LABS: ALBUMIN 3.5 g/dl (3.4-5.0); BLOOD UREA NITROGEN 18.5 mg/dL (7-18)
[2020-11-24 14:04] LABS: BILIRUBIN,TOTAL 0.3 mg/dL (0.2-1); TOT PROT 6.7 g/dl (6.4-8.2)
[2020-11-24 14:50] LABS: HIV INTERPRETATION NEGATIVE (NEGATIVE)
[2020-11-24] MEDS: MELATONIN 5 MG TABLETS PO SCH (22:29)
[2020-11-24] MEDS: THIAMINE HCL 100 MG TABLET (FP) PO SCH (22:29)
[2020-11-25] MEDS: diazePAM 5 MG TABLET PO PRN ×4 (03:04→19:12)
[2020-11-25] MEDS ORDERED: METHADONE HCL 10 MG TABLET (FOR DETOX USE ONLY) PO ONE (10:00)
[2020-11-25] MEDS: NICOTINE 14 MG/24 HOURS TOPICAL PATCH TD SCH (10:43)
[2020-11-25] MEDS: PRENATAL VITAMINS W/ FOLIC ACID TABLET (FP) PO SCH (10:43)
[2020-11-25] MEDS: METHOCARBAMOL 500 MG TABLET PO PRN (14:59)
[2020-11-25] MEDS: THIAMINE HCL 100 MG TABLET (FP) PO SCH (22:30)
[2020-11-25] MEDS: MELATONIN 5 MG TABLETS PO SCH (22:31)
[2020-11-26] MEDS: METHOCARBAMOL 500 MG TABLET PO PRN ×2 (00:53→14:58)
[2020-11-26] MEDS: diazePAM 5 MG TABLET PO PRN ×4 (00:53→14:58)
[2020-11-26] MEDS ORDERED: METHADONE HCL 10 MG TABLET (FOR DETOX USE ONLY) ONE (09:27)
[2020-11-26] MEDS ORDERED: METHADONE HCL 5 MG TABLET (FOR DETOX USE ONLY) ONE (09:27)
[2020-11-26] MEDS ORDERED: METHADONE (DETOX) 10 MG, METHADONE (DETOX) 5 MG PO ONE (10:00)
[2020-11-26 10:06] LABS: SARS-CoV-2 NAA Not Detected (Not Detected)
[2020-11-26] MEDS: NICOTINE 14 MG/24 HOURS TOPICAL PATCH TD SCH (10:50)
[2020-11-26] MEDS: PRENATAL VITAMINS W/ FOLIC ACID TABLET (FP) PO SCH (10:52)
[2020-11-26 17:16] LABS: PH,URINE >= 9.0 (5.0-8.0); URINE APPEARANCE CLEAR; URINE BILIRUBIN NEGATIVE (NEGATIVE); URINE COLOR YELLOW; URINE GLUCOSE (UA) NEGATIVE (NEGATIVE); URINE KETONE NEGATIVE (NEGATIVE); URINE LEUK ESTERASE NEGATIVE (NEGATIVE); URINE NITRITE NEGATIVE (NEGATIVE); URINE PROTEIN NEGATIVE (NEGATIVE); URINE UROBILINOGEN 0.2 mg/dL (0.2-1.0)
[2020-11-26] MEDS: MELATONIN 5 MG TABLETS PO SCH (22:13)
[2020-11-26] MEDS: THIAMINE HCL 100 MG TABLET (FP) PO SCH (22:13)
[2020-11-26] MEDS: hydrOXYzine PAMOATE 25 MG CAPSULE (FP) PO PRN (22:15)
[2020-11-27] MEDS ORDERED: METHADONE HCL 10 MG TABLET (FOR DETOX USE ONLY) PO ONE (10:00)
[2020-11-27] MEDS: METHOCARBAMOL 500 MG TABLET PO PRN ×2 (10:07→17:47)
[2020-11-27] MEDS: hydrOXYzine PAMOATE 25 MG CAPSULE (FP) PO PRN ×2 (10:07→15:38)
[2020-11-27] MEDS: PRENATAL VITAMINS W/ FOLIC ACID TABLET (FP) PO SCH (10:08)
[2020-11-27] MEDS: NICOTINE 14 MG/24 HOURS TOPICAL PATCH TD SCH (10:08)
[2020-11-27] MEDS: THIAMINE HCL 100 MG TABLET (FP) PO SCH (21:19)
[2020-11-27] MEDS: MELATONIN 5 MG TABLETS PO SCH (21:20)
[2020-11-27] MEDS ORDERED: diazePAM 5 MG TABLET PO ONE (22:00)
[2020-11-28] MEDS ORDERED: METHADONE HCL 5 MG TABLET (FOR DETOX USE ONLY) PO ONE (06:00)
[2020-11-28] MEDS: METHOCARBAMOL 500 MG TABLET PO PRN (06:05)
[2020-11-28 09:19] VITALS: BP 117/81; PULSE 82; TEMP 98.2
[2020-11-28] MEDS: NICOTINE 14 MG/24 HOURS TOPICAL PATCH TD SCH (10:32)
[2020-11-28] MEDS: PRENATAL VITAMINS W/ FOLIC ACID TABLET (FP) PO SCH (10:32)
[2020-11-28] MEDS: hydrOXYzine PAMOATE 25 MG CAPSULE (FP) PO PRN (12:10)
== END 2020-11-28 12:25 | disposition other institution (70) | DRG 773 ==
LOC: YASAS 14:44 → Y6N 18:02
PROVIDERS: ADMIT Allergy & Immunology; ATTEND Allergy & Immunology
PROC: HZ2ZZZZ Detoxification Services for Substance Abuse Treatment (ICD-10-PCS; principal; 2020-11-23)
DX: F11.23 Opioid dependence with withdrawal (principal); F14.20 Cocaine dependence, uncomplicated; F13.20 Sedative, hypnotic or anxiolytic dependence, uncomplicated; F12.20 Cannabis dependence, uncomplicated; F17.210 Nicotine dependence, cigarettes, uncomplicated
CPT/HCPCS: 36415; 80053; 81003; 85027; 86780; 87389; C9803; U0003; U0005

== ENCOUNTER 2020-11-28 12:33 | Inpatient (IN) | payer OTHER ==
[2020-11-28] MEDS ORDERED: guaiFENesin 200 MG/10 ML 10 ML UNIT-DOSE CUPS PO PRN (13:37)
[2020-11-28] MEDS ORDERED: P-EPHED 60MG/TRIPROLIDI 2.5MG TABLET PO PRN (13:37)
[2020-11-28] MEDS ORDERED: MENTHOL/PHENOL 1 EACH UD MM PRN (13:37)
[2020-11-28] MEDS ORDERED: LOPERAMIDE HCL 2 MG CAPSULE PO PRN (13:37)
[2020-11-28] MEDS ORDERED: MAGNESIUM HYDROX 2400MG/30ML ORAL SUSPENSION 30 ML CUP PO PRN (13:37)
[2020-11-28] MEDS ORDERED: MAG HYDROX/AL HYDROX/SIMETH 30 ML UNIT-DOSE CUP PO PRN (13:37)
[2020-11-28] MEDS ORDERED: NICOTINE POLACRILEX 2 MG GUM BUC PRN (13:37)
[2020-11-28] MEDS ORDERED: IBUPROFEN 400 MG TABLET (FP) PO PRN (13:37)
[2020-11-28] MEDS ORDERED: MAGNESIUM CITRATE 300 ML BOTTLE PO PRN (13:37)
[2020-11-28] MEDS ORDERED: ACETAMINOPHEN 325 MG TABLET (FP) PO PRN (13:37)
[2020-11-28] MEDS ORDERED: SUVOREXANT 10 MG TABLET PO PRN (14:35)
[2020-11-28] MEDS: METHOCARBAMOL 500 MG TABLET PO PRN (14:52)
[2020-11-28] MEDS: hydrOXYzine PAMOATE 25 MG CAPSULE (FP) PO PRN (17:31)
[2020-11-28] MEDS: THIAMINE HCL 100 MG TABLET (FP) PO SCH (21:20)
[2020-11-28] MEDS: busPIRone HCL 10 MG TABLET (FP) PO SCH (21:20)
[2020-11-28] MEDS ORDERED: MELATONIN 5 MG TABLETS PO SCH (22:00)
[2020-11-29] MEDS: METHOCARBAMOL 500 MG TABLET PO PRN ×4 (02:07→21:09)
[2020-11-29] MEDS: hydrOXYzine PAMOATE 25 MG CAPSULE (FP) PO PRN ×4 (02:07→19:47)
[2020-11-29] MEDS: PRENATAL VITAMINS W/ FOLIC ACID TABLET (FP) PO SCH (09:36)
[2020-11-29] MEDS: busPIRone HCL 10 MG TABLET (FP) PO SCH ×2 (09:36→21:09)
[2020-11-29] MEDS: NICOTINE 7 MG/24 HOURS TOPICAL PATCH TD SCH (09:36)
[2020-11-29] MEDS: THIAMINE HCL 100 MG TABLET (FP) PO SCH (21:09)
[2020-11-29] MEDS: SUVOREXANT 15 MG TABLET PO PRN (21:10)
[2020-11-30] MEDS: METHOCARBAMOL 500 MG TABLET PO PRN ×3 (06:31→21:38)
[2020-11-30] MEDS: hydrOXYzine PAMOATE 25 MG CAPSULE (FP) PO PRN ×3 (06:31→18:24)
[2020-11-30] MEDS: PRENATAL VITAMINS W/ FOLIC ACID TABLET (FP) PO SCH (09:40)
[2020-11-30] MEDS: NICOTINE 7 MG/24 HOURS TOPICAL PATCH TD SCH (09:40)
[2020-11-30] MEDS: busPIRone HCL 10 MG TABLET (FP) PO SCH ×2 (09:41→21:38)
[2020-11-30] MEDS ORDERED: BUPRENORPHINE/NALOXONE 2 MG/0.5 MG FILM PACKET SL ONE (13:54)
[2020-11-30] MEDS: THIAMINE HCL 100 MG TABLET (FP) PO SCH (21:38)
[2020-11-30] MEDS: BUPRENORPHINE/NALOXONE 2 MG/0.5 MG FILM PACKET SL SCH (21:38)
[2020-11-30] MEDS: SUVOREXANT 15 MG TABLET PO PRN (21:51)
[2020-12-01] MEDS ORDERED: MELATONIN 5 MG TABLETS PO ONE (00:05)
[2020-12-01] MEDS: METHOCARBAMOL 500 MG TABLET PO PRN (09:59)
[2020-12-01] MEDS: NICOTINE 7 MG/24 HOURS TOPICAL PATCH TD SCH (09:59)
[2020-12-01] MEDS: hydrOXYzine PAMOATE 25 MG CAPSULE (FP) PO PRN ×2 (09:59→15:54)
[2020-12-01] MEDS: BUPRENORPHINE/NALOXONE 2 MG/0.5 MG FILM PACKET SL SCH (09:59)
[2020-12-01] MEDS: PRENATAL VITAMINS W/ FOLIC ACID TABLET (FP) PO SCH (09:59)
[2020-12-01] MEDS: busPIRone HCL 10 MG TABLET (FP) PO SCH (09:59)
[2020-12-01] MEDS ORDERED: BUPRENORPHINE/NALOXONE 2 MG/0.5 MG FILM PACKET SL SCH (10:00)
[2020-12-01 17:01] VITALS: BP 117/74; PULSE 101; TEMP 98.5
== END 2020-12-01 05:53 | disposition home or self-care (01) | DRG 772 ==
LOC: YASAS 12:33 → Y5N 12:34
PROVIDERS: ADMIT Allergy & Immunology; ATTEND Allergy & Immunology
PROC: HZ42ZZZ Group Counseling for Substance Abuse Treatment, Cognitive-Behavioral (ICD-10-PCS; principal; 2020-11-28)
DX: F11.20 Opioid dependence, uncomplicated (principal); F10.20 Alcohol dependence, uncomplicated; F14.20 Cocaine dependence, uncomplicated; F13.20 Sedative, hypnotic or anxiolytic dependence, uncomplicated; F12.20 Cannabis dependence, uncomplicated; F17.210 Nicotine dependence, cigarettes, uncomplicated; F19.280 Other psychoactive substance dependence with psychoactive substance-induced anxiety disorder; F19.282 Other psychoactive substance dependence with psychoactive substance-induced sleep disorder; F19.24 Other psychoactive substance dependence with psychoactive substance-induced mood disorder

== ENCOUNTER 2021-08-14 14:19 | Inpatient (IN) | payer OTHER ==
[2021-08-14 16:31] VITALS: BMI 30.7
[2021-08-14] MEDS ORDERED: MAGNESIUM CITRATE 300 ML BOTTLE PO PRN (18:03)
[2021-08-14] MEDS ORDERED: BISMUTH SUBSALICYLATE 524 MG/30 ML PO PRN (18:03)
[2021-08-14] MEDS ORDERED: NICOTINE 10 MG CARTRIDGE (INHALER) IH PRN (18:03)
[2021-08-14] MEDS ORDERED: ONDANSETRON *ODT* 4 MG TABLET SL PRN (18:03)
[2021-08-14] MEDS ORDERED: ACETAMINOPHEN 325 MG TABLET (FP) PO PRN ×2 (18:03)
[2021-08-14] MEDS ORDERED: MENTHOL/PHENOL 1 EACH UD MM PRN (18:03)
[2021-08-14] MEDS ORDERED: MAGNESIUM HYDROX 2400MG/30ML ORAL SUSPENSION 30 ML CUP PO PRN (18:03)
[2021-08-14] MEDS ORDERED: MAG HYDROX/AL HYDROX/SIMETH 30 ML UNIT-DOSE CUP PO PRN (18:03)
[2021-08-14] MEDS ORDERED: hydrOXYzine PAMOATE 25 MG CAPSULE (FP) PO SCH (22:00)
[2021-08-14] MEDS ORDERED: MELATONIN 5 MG TABLETS PO SCH (22:00)
[2021-08-14] MEDS ORDERED: methaDONE HCL 10 MG TABLET (FOR DETOX USE ONLY) PO ONE (22:31)
[2021-08-14] MEDS ORDERED: hydrOXYzine PAMOATE 25 MG CAPSULE (FP) PO PRN (22:32)
[2021-08-14] MEDS: THIAMINE HCL 100 MG TABLET (FP) PO SCH (22:39)
[2021-08-14] MEDS: cloNIDine HCL 0.1 MG TABLET PO PRN (22:39)
[2021-08-15] MEDS: IBUPROFEN 400 MG TABLET (FP) PO PRN ×2 (07:12→19:26)
[2021-08-15] MEDS: METHOCARBAMOL 500 MG TABLET PO PRN ×2 (07:12→14:52)
[2021-08-15] MEDS ORDERED: methaDONE HCL 10 MG TABLET (FOR DETOX USE ONLY) ONE (09:15)
[2021-08-15] MEDS: PRENATAL VITAMINS W/ FOLIC ACID TABLET (FP) PO SCH (10:06)
[2021-08-15 10:41] LABS: BLOOD UREA NITROGEN 15.7 mg/dL (7-18); CALCIUM 9.3 mg/dL (8.5-10.1)
[2021-08-15 10:46] LABS: BILIRUBIN,TOTAL 1.4 mg/dL (0.2-1); TOT PROT 7.7 g/dl (6.4-8.2)
[2021-08-15 10:49] LABS: ALBUMIN 4.1 g/dl (3.4-5.0)
[2021-08-15] MEDS: diazePAM 5 MG TABLET PO PRN ×3 (10:52→19:27)
[2021-08-15 11:03] LABS: HEMATOCRIT 37.7 % (35.4-49); HEMOGLOBIN 12.6 GM/dL (11.7-16.9); MCH 26.6 pg (25.7-33.7); MCHC 33.3 g/dl (32.0-35.9); MEAN CELL VOLUME 79.9 fl (80-96); MEAN PLT VOLUME 7.9 fl (7.5-11.1); PLATELET COUNT 271 10^3/uL (134-434); RBC 4.72 M/mm3 (4.00-5.60); RDW 13.9 % (11.9-15.9); WHITE BLOOD COUNT 5.5 K/mm3 (4.0-10.0)
[2021-08-15] MEDS: SUVOREXANT 10 MG TABLET PO PRN (23:03)
[2021-08-15] MEDS: cloNIDine HCL 0.1 MG TABLET PO PRN (23:03)
[2021-08-15] MEDS: THIAMINE HCL 100 MG TABLET (FP) PO SCH (23:03)
[2021-08-16] MEDS: diazePAM 5 MG TABLET PO PRN ×3 (05:04→22:30)
[2021-08-16] MEDS: METHOCARBAMOL 500 MG TABLET PO PRN ×2 (05:04→12:32)
[2021-08-16] MEDS ORDERED: methaDONE HCL 10 MG TABLET (FOR DETOX USE ONLY) PO ONE (10:00)
[2021-08-16] MEDS: PRENATAL VITAMINS W/ FOLIC ACID TABLET (FP) PO SCH (10:18)
[2021-08-16] MEDS: cloNIDine HCL 0.1 MG TABLET PO PRN (10:21)
[2021-08-16] MEDS: SUVOREXANT 10 MG TABLET PO PRN (22:29)
[2021-08-16] MEDS: THIAMINE HCL 100 MG TABLET (FP) PO SCH (22:29)
[2021-08-17] MEDS: METHOCARBAMOL 500 MG TABLET PO PRN ×3 (05:15→17:17)
[2021-08-17] MEDS: diazePAM 5 MG TABLET PO PRN ×3 (05:15→17:17)
[2021-08-17] MEDS ORDERED: methaDONE HCL 10 MG TABLET (FOR DETOX USE ONLY) ONE (09:30)
[2021-08-17] MEDS: PRENATAL VITAMINS W/ FOLIC ACID TABLET (FP) PO SCH (10:11)
[2021-08-17] MEDS: SUVOREXANT 10 MG TABLET PO PRN (22:39)
[2021-08-17] MEDS: THIAMINE HCL 100 MG TABLET (FP) PO SCH (22:40)
[2021-08-18] MEDS: METHOCARBAMOL 500 MG TABLET PO PRN ×3 (01:21→19:40)
[2021-08-18] MEDS ORDERED: methaDONE HCL 10 MG TABLET (FOR DETOX USE ONLY) PO ONE (10:00)
[2021-08-18] MEDS: PRENATAL VITAMINS W/ FOLIC ACID TABLET (FP) PO SCH (10:20)
[2021-08-18] MEDS ORDERED: diazePAM 5 MG TABLET PO PRN (10:21)
[2021-08-18] MEDS: THIAMINE HCL 100 MG TABLET (FP) PO SCH (23:05)
[2021-08-18] MEDS ORDERED: MELATONIN 5 MG TABLETS PO PRN (23:05)
[2021-08-19] MEDS: IBUPROFEN 400 MG TABLET (FP) PO PRN (05:41)
[2021-08-19 09:03] VITALS: BP 128/94; PULSE 100; TEMP 98.2
[2021-08-19] MEDS: PRENATAL VITAMINS W/ FOLIC ACID TABLET (FP) PO SCH (10:29)
[2021-08-19] MEDS: METHOCARBAMOL 500 MG TABLET PO PRN (10:30)
== END 2021-08-19 10:35 | disposition home or self-care (01) | DRG 773 ==
LOC: YASAS 14:19 → Y6N 19:24
PROVIDERS: ADMIT Allergy & Immunology; ATTEND Allergy & Immunology
PROC: HZ2ZZZZ Detoxification Services for Substance Abuse Treatment (ICD-10-PCS; principal; 2021-08-14)
DX: F11.23 Opioid dependence with withdrawal (principal); F14.20 Cocaine dependence, uncomplicated; F12.20 Cannabis dependence, uncomplicated; F17.210 Nicotine dependence, cigarettes, uncomplicated; F19.282 Other psychoactive substance dependence with psychoactive substance-induced sleep disorder; F19.24 Other psychoactive substance dependence with psychoactive substance-induced mood disorder; Z56.0 Unemployment, unspecified
CPT/HCPCS: 36415; 80053; 85027; 86780; C9803; J0735; U0003; U0005

== ENCOUNTER 2022-04-29 22:19 | Inpatient (IN) | payer OTHER ==
[2022-04-29 22:55] VITALS: BMI 32.2
[2022-04-29] MEDS ORDERED: DICYCLOMINE HCL 10 MG CAPSULE PO PRN (23:17)
[2022-04-29] MEDS ORDERED: P-EPHED 60MG/TRIPROLIDI 2.5MG TABLET PO PRN (23:17)
[2022-04-29] MEDS ORDERED: guaiFENesin 200 MG/10 ML 10 ML UNIT-DOSE CUPS PO PRN (23:17)
[2022-04-29] MEDS ORDERED: BENZOCAINE/MENTHOL (CHLORASEPTIC ) LOZENGE MM PRN (23:17)
[2022-04-29] MEDS ORDERED: MAGNESIUM HYDROX 2400MG/30ML ORAL SUSPENSION 30 ML CUP PO PRN (23:17)
[2022-04-29] MEDS ORDERED: NALOXONE HCL (KLOXXADO) 8 MG SPRAY NS PRN (23:17)
[2022-04-29] MEDS ORDERED: MAGNESIUM CITRATE 300 ML BOTTLE PO PRN (23:17)
[2022-04-29] MEDS ORDERED: LOPERAMIDE HCL 2 MG CAPSULE PO PRN (23:17)
[2022-04-29] MEDS ORDERED: MAG HYDROX/AL HYDROX/SIMETH 30 ML UNIT-DOSE CUP PO PRN (23:17)
[2022-04-29] MEDS ORDERED: IBUPROFEN 600 MG TABLET (FP) PO PRN (23:17)
[2022-04-29] MEDS ORDERED: BISMUTH SUBSALICYLATE 524 MG/30 ML PO PRN (23:17)
[2022-04-29] MEDS ORDERED: ACETAMINOPHEN 325 MG TABLET (FP) PO PRN ×2 (23:17)
[2022-04-29] MEDS ORDERED: IBUPROFEN 400 MG TABLET (FP) PO PRN (23:17)
[2022-04-29] MEDS ORDERED: ONDANSETRON *ODT* 4 MG TABLET SL PRN (23:17)
[2022-04-29] MEDS ORDERED: NICOTINE POLACRILEX 2 MG GUM BUC PRN (23:17)
[2022-04-29] MEDS ORDERED: diazePAM 5 MG TABLET PO PRN (23:22)
[2022-04-30] MEDS: CLINDAMYCIN HCL 150 MG CAPSULE (FP) PO SCH ×4 (02:02→18:10)
[2022-04-30] MEDS ORDERED: chlordiazePOXIDE HCL 25 MG CAPSULE PO SCH (05:00)
[2022-04-30] MEDS ORDERED: chlordiazePOXIDE HCL 25 MG CAPSULE PO PRN ×2 (09:04→09:37)
[2022-04-30] MEDS ORDERED: cloNIDine HCL 0.1 MG TABLET PO PRN (09:04)
[2022-04-30] MEDS ORDERED: methaDONE HCL 10 MG TABLET (FOR DETOX USE ONLY) ONE (09:33)
[2022-04-30] MEDS ORDERED: methaDONE HCL 10 MG TABLET (FOR DETOX USE ONLY) PO ONE (09:45)
[2022-04-30] MEDS ORDERED: chlordiazePOXIDE HCL 25 MG CAPSULE ONE (10:13)
[2022-04-30] MEDS: chlordiazePOXIDE HCL 25 MG CAPSULE PO SCH ×3 (10:31→23:05)
[2022-04-30] MEDS ORDERED: hydrOXYzine PAMOATE 25 MG CAPSULE (FP) PO ONE (10:33)
[2022-04-30] MEDS: hydrOXYzine PAMOATE 25 MG CAPSULE (FP) PO PRN (10:33)
[2022-04-30] MEDS: METHOCARBAMOL 500 MG TABLET PO PRN (11:45)
[2022-04-30] MEDS: PRENATAL VITAMINS W/ FOLIC ACID TABLET (FP) PO SCH (11:45)
[2022-04-30] MEDS: THIAMINE HCL 100 MG TABLET (FP) PO SCH (23:05)
[2022-05-01] MEDS: CLINDAMYCIN HCL 150 MG CAPSULE (FP) PO SCH ×5 (01:00→23:00)
[2022-05-01] MEDS ORDERED: chlordiazePOXIDE HCL 25 MG CAPSULE PO SCH (05:00)
[2022-05-01] MEDS: chlordiazePOXIDE HCL 25 MG CAPSULE PO SCH (05:40)
[2022-05-01] MEDS: PRENATAL VITAMINS W/ FOLIC ACID TABLET (FP) PO SCH (10:36)
[2022-05-01] MEDS: diazePAM 5 MG TABLET PO SCH ×3 (10:36→22:33)
[2022-05-01 10:54] LABS: BLOOD UREA NITROGEN 14.2 mg/dL (7-18)
[2022-05-01 10:55] LABS: CALCIUM 9.3 mg/dL (8.5-10.1)
[2022-05-01 10:56] LABS: CREATININE 0.9 mg/dL (0.55-1.3)
[2022-05-01 10:58] LABS: BILIRUBIN,TOTAL 0.7 mg/dL (0.2-1)
[2022-05-01 11:00] LABS: HEMOGLOBIN 13.1 GM/dL (11.7-16.9); MCH 25.7 pg (25.7-33.7); MCHC 32.9 g/dl (32.0-35.9); MEAN CELL VOLUME 78.3 fl (80-96); MEAN PLT VOLUME 8.1 fl (7.5-11.1); PLATELET COUNT 338 10^3/uL (134-434); RBC 5.11 M/mm3 (4.00-5.60); RDW 14.2 % (11.9-15.9); WHITE BLOOD COUNT 7.6 K/mm3 (4.0-10.0)
[2022-05-01 11:44] LABS: HIV INTERPRETATION NEGATIVE (NEGATIVE)
[2022-05-01] MEDS: hydrOXYzine PAMOATE 25 MG CAPSULE (FP) PO PRN (17:04)
[2022-05-01] MEDS: THIAMINE HCL 100 MG TABLET (FP) PO SCH (22:33)
[2022-05-01] MEDS: MELATONIN 5 MG TABLETS PO PRN (22:35)
[2022-05-02] MEDS ORDERED: chlordiazePOXIDE HCL 10 MG CAPSULE PO PRN
[2022-05-02] MEDS ORDERED: chlordiazePOXIDE HCL 25 MG CAPSULE PO SCH (05:00)
[2022-05-02] MEDS ORDERED: chlordiazePOXIDE HCL 10 MG CAPSULE PO SCH (05:00)
[2022-05-02] MEDS: CLINDAMYCIN HCL 150 MG CAPSULE (FP) PO SCH ×4 (06:27→23:00)
[2022-05-02] MEDS: diazePAM 5 MG TABLET PO SCH ×4 (06:27→22:00)
[2022-05-02] MEDS ORDERED: methaDONE HCL 10 MG TABLET (FOR DETOX USE ONLY) PO ONE (10:00)
[2022-05-02] MEDS: PRENATAL VITAMINS W/ FOLIC ACID TABLET (FP) PO SCH (10:26)
[2022-05-02] MEDS: diazePAM 5 MG TABLET PO PRN (14:22)
[2022-05-02] MEDS: MELATONIN 5 MG TABLETS PO PRN (21:37)
[2022-05-02] MEDS: THIAMINE HCL 100 MG TABLET (FP) PO SCH (21:37)
[2022-05-02] MEDS: hydrOXYzine PAMOATE 25 MG CAPSULE (FP) PO PRN (21:37)
[2022-05-03] MEDS ORDERED: chlordiazePOXIDE HCL 10 MG CAPSULE PO PRN
[2022-05-03] MEDS: diazePAM 5 MG TABLET PO PRN ×3 (02:24→17:05)
[2022-05-03] MEDS: METHOCARBAMOL 500 MG TABLET PO PRN ×3 (02:24→22:04)
[2022-05-03] MEDS ORDERED: chlordiazePOXIDE HCL 10 MG CAPSULE PO SCH ×2 (05:00)
[2022-05-03] MEDS: CLINDAMYCIN HCL 150 MG CAPSULE (FP) PO SCH ×3 (05:36→17:03)
[2022-05-03] MEDS: diazePAM 5 MG TABLET PO SCH ×3 (05:36→22:04)
[2022-05-03] MEDS: hydrOXYzine PAMOATE 25 MG CAPSULE (FP) PO PRN ×3 (10:06→22:05)
[2022-05-03] MEDS: PRENATAL VITAMINS W/ FOLIC ACID TABLET (FP) PO SCH (10:07)
[2022-05-03 21:21] VITALS: RESP 18
[2022-05-03] MEDS: MELATONIN 5 MG TABLETS PO PRN (22:03)
[2022-05-03] MEDS: THIAMINE HCL 100 MG TABLET (FP) PO SCH (22:03)
[2022-05-04] MEDS: diazePAM 5 MG TABLET PO PRN (02:20)
[2022-05-04] MEDS: CLINDAMYCIN HCL 150 MG CAPSULE (FP) PO SCH ×2 (02:20→05:32)
[2022-05-04] MEDS ORDERED: chlordiazePOXIDE HCL 10 MG CAPSULE PO SCH (05:00)
[2022-05-04] MEDS ORDERED: chlordiazePOXIDE HCL 10 MG CAPSULE PO ONE (05:00)
[2022-05-04] MEDS ORDERED: diazePAM 5 MG TABLET PO SCH (06:00)
[2022-05-04 09:58] VITALS: BP 104/70; PULSE 92; TEMP 97.6
[2022-05-04] MEDS ORDERED: methaDONE HCL 10 MG TABLET (FOR DETOX USE ONLY) PO ONE (10:00)
[2022-05-04] MEDS: PRENATAL VITAMINS W/ FOLIC ACID TABLET (FP) PO SCH (10:41)
[2022-05-05] MEDS ORDERED: chlordiazePOXIDE HCL 10 MG CAPSULE PO ONE (05:00)
[2022-05-05] MEDS ORDERED: diazePAM 5 MG TABLET PO ONE (06:00)
== END 2022-05-04 11:25 | disposition home or self-care (01) | DRG 773 ==
LOC: YASAS 22:19 → Y6N 04-30 10:28
PROVIDERS: ADMIT Allergy & Immunology; ATTEND Surgery
PROC: HZ2ZZZZ Detoxification Services for Substance Abuse Treatment (ICD-10-PCS; principal; 2022-04-30)
DX: F11.23 Opioid dependence with withdrawal (principal); F10.230 Alcohol dependence with withdrawal, uncomplicated; F14.20 Cocaine dependence, uncomplicated; F12.20 Cannabis dependence, uncomplicated; F17.210 Nicotine dependence, cigarettes, uncomplicated
CPT/HCPCS: 36415; 80053; 82947; 83036; 85027; 86780; 87389; 87811; C9803-CS; Q0162; U0003; U0005

== ENCOUNTER 2022-06-06 09:42 | Inpatient (IN) | payer OTHER ==
[2022-06-06 10:32] VITALS: BMI 29.5
[2022-06-06] MEDS ORDERED: MAGNESIUM HYDROX 2400MG/30ML ORAL SUSPENSION 30 ML CUP PO PRN (11:05)
[2022-06-06] MEDS ORDERED: NALOXONE HCL (KLOXXADO) 8 MG SPRAY NS PRN (11:05)
[2022-06-06] MEDS ORDERED: MAG HYDROX/AL HYDROX/SIMETH 30 ML UNIT-DOSE CUP PO PRN (11:05)
[2022-06-06] MEDS ORDERED: ONDANSETRON *ODT* 4 MG TABLET SL PRN (11:05)
[2022-06-06] MEDS ORDERED: DICYCLOMINE HCL 10 MG CAPSULE PO PRN (11:05)
[2022-06-06] MEDS ORDERED: ACETAMINOPHEN 325 MG TABLET (FP) PO PRN ×2 (11:05)
[2022-06-06] MEDS ORDERED: MAGNESIUM CITRATE 300 ML BOTTLE PO PRN (11:05)
[2022-06-06] MEDS ORDERED: BISMUTH SUBSALICYLATE 524 MG/30 ML PO PRN (11:05)
[2022-06-06] MEDS ORDERED: BENZOCAINE/MENTHOL (CHLORASEPTIC ) LOZENGE MM PRN (11:05)
[2022-06-06] MEDS ORDERED: IBUPROFEN 400 MG TABLET (FP) PO PRN (11:05)
[2022-06-06] MEDS ORDERED: IBUPROFEN 600 MG TABLET (FP) PO PRN (11:05)
[2022-06-06] MEDS ORDERED: NICOTINE 10 MG CARTRIDGE (INHALER) IH PRN (11:05)
[2022-06-06] MEDS ORDERED: LOPERAMIDE HCL 2 MG CAPSULE PO PRN (11:05)
[2022-06-06] MEDS: PRENATAL VITAMINS W/ FOLIC ACID TABLET (FP) PO SCH (11:53)
[2022-06-06] MEDS: NICOTINE 14 MG/24 HOURS TOPICAL PATCH TD SCH (11:53)
[2022-06-06] MEDS ORDERED: cloNIDine HCL 0.1 MG TABLET PO PRN (13:38)
[2022-06-06] MEDS ORDERED: methaDONE HCL 10 MG TABLET (FOR DETOX USE ONLY) PO ONE (14:00)
[2022-06-06] MEDS: diazePAM 5 MG TABLET PO PRN (14:01)
[2022-06-06] MEDS: diazePAM 5 MG TABLET PO SCH ×2 (17:19→22:05)
[2022-06-06] MEDS: METHOCARBAMOL 500 MG TABLET PO PRN (17:21)
[2022-06-06] MEDS: MELATONIN 5 MG TABLETS PO SCH (22:05)
[2022-06-06] MEDS: THIAMINE HCL 100 MG TABLET (FP) PO SCH (22:05)
[2022-06-07] MEDS: diazePAM 5 MG TABLET PO PRN ×2 (02:27→13:54)
[2022-06-07] MEDS: METHOCARBAMOL 500 MG TABLET PO PRN ×3 (02:29→18:51)
[2022-06-07] MEDS: diazePAM 5 MG TABLET PO SCH ×4 (05:21→22:06)
[2022-06-07] MEDS: PRENATAL VITAMINS W/ FOLIC ACID TABLET (FP) PO SCH (10:04)
[2022-06-07] MEDS: NICOTINE 14 MG/24 HOURS TOPICAL PATCH TD SCH (10:04)
[2022-06-07] MEDS ORDERED: FLU VACC QS2022-23(6MOS UP)/PF 60 MCG/0.5 ML SYRINGE IM ONE (11:04)
[2022-06-07] MEDS: THIAMINE HCL 100 MG TABLET (FP) PO SCH (22:07)
[2022-06-07] MEDS: MELATONIN 5 MG TABLETS PO SCH (22:07)
[2022-06-08] MEDS: diazePAM 5 MG TABLET PO PRN ×3 (03:38→17:59)
[2022-06-08] MEDS: diazePAM 5 MG TABLET PO SCH ×3 (05:18→22:09)
[2022-06-08] MEDS: METHOCARBAMOL 500 MG TABLET PO PRN (05:20)
[2022-06-08] MEDS ORDERED: methaDONE HCL 10 MG TABLET (FOR DETOX USE ONLY) PO ONE (10:00)
[2022-06-08] MEDS: PRENATAL VITAMINS W/ FOLIC ACID TABLET (FP) PO SCH (10:34)
[2022-06-08] MEDS: NICOTINE 14 MG/24 HOURS TOPICAL PATCH TD SCH (11:10)
[2022-06-08 12:07] LABS: ALBUMIN 3.3 g/dl (3.4-5.0); BLOOD UREA NITROGEN 6.9 mg/dL (7-18); CALCIUM 9.1 mg/dL (8.5-10.1)
[2022-06-08 12:08] LABS: CREATININE 0.7 mg/dL (0.55-1.3)
[2022-06-08 12:11] LABS: BILIRUBIN,TOTAL 0.5 mg/dL (0.2-1); TOT PROT 6.7 g/dl (6.4-8.2)
[2022-06-08 12:28] LABS: HEMATOCRIT 38.8 % (35.4-49); HEMOGLOBIN 12.5 GM/dL (11.7-16.9); MCH 25.5 pg (25.7-33.7); MCHC 32.2 g/dl (32.0-35.9); MEAN CELL VOLUME 79.3 fl (80-96); MEAN PLT VOLUME 9.9 fl (7.5-11.1); PLATELET COUNT 166 10^3/uL (134-434); RBC 4.89 M/mm3 (4.00-5.60); RDW 14.9 % (11.9-15.9); WHITE BLOOD COUNT 4.6 K/mm3 (4.0-10.0)
[2022-06-08] MEDS: VITAMINS A AND D TOPICAL OINTMENT 60 GM TUBE TP SCH ×3 (13:02→23:11)
[2022-06-08] MEDS: THIAMINE HCL 100 MG TABLET (FP) PO SCH (22:09)
[2022-06-08] MEDS: SUVOREXANT 15 MG TABLET PO PRN (22:12)
[2022-06-09] MEDS: METHOCARBAMOL 500 MG TABLET PO PRN ×2 (05:13→14:15)
[2022-06-09] MEDS: diazePAM 5 MG TABLET PO SCH ×2 (05:13→18:29)
[2022-06-09] MEDS: VITAMINS A AND D TOPICAL OINTMENT 60 GM TUBE TP SCH ×4 (07:12→23:01)
[2022-06-09] MEDS: PRENATAL VITAMINS W/ FOLIC ACID TABLET (FP) PO SCH (10:04)
[2022-06-09] MEDS: NICOTINE 14 MG/24 HOURS TOPICAL PATCH TD SCH (10:04)
[2022-06-09] MEDS: diazePAM 5 MG TABLET PO PRN ×2 (10:05→22:05)
[2022-06-09] MEDS: hydrOXYzine PAMOATE 25 MG CAPSULE (FP) PO PRN (14:15)
[2022-06-09] MEDS: THIAMINE HCL 100 MG TABLET (FP) PO SCH (22:05)
[2022-06-09] MEDS: SUVOREXANT 15 MG TABLET PO PRN (22:06)
[2022-06-10] MEDS ORDERED: diazePAM 5 MG TABLET PO ONE (06:00)
[2022-06-10] MEDS: VITAMINS A AND D TOPICAL OINTMENT 60 GM TUBE TP SCH ×4 (06:25→23:06)
[2022-06-10] MEDS: diazePAM 5 MG TABLET PO PRN ×4 (08:00→22:08)
[2022-06-10] MEDS ORDERED: methaDONE HCL 10 MG TABLET (FOR DETOX USE ONLY) PO ONE (10:00)
[2022-06-10] MEDS: PRENATAL VITAMINS W/ FOLIC ACID TABLET (FP) PO SCH (10:24)
[2022-06-10] MEDS: NICOTINE 14 MG/24 HOURS TOPICAL PATCH TD SCH (10:25)
[2022-06-10] MEDS: METHOCARBAMOL 500 MG TABLET PO PRN ×2 (10:26→17:51)
[2022-06-10] MEDS: SUVOREXANT 15 MG TABLET PO PRN (22:07)
[2022-06-10] MEDS: THIAMINE HCL 100 MG TABLET (FP) PO SCH (22:08)
[2022-06-11] MEDS: diazePAM 5 MG TABLET PO PRN ×5 (02:56→22:00)
[2022-06-11] MEDS: VITAMINS A AND D TOPICAL OINTMENT 60 GM TUBE TP SCH ×4 (05:44→23:08)
[2022-06-11] MEDS: METHOCARBAMOL 500 MG TABLET PO PRN (08:12)
[2022-06-11] MEDS: NICOTINE 14 MG/24 HOURS TOPICAL PATCH TD SCH (10:04)
[2022-06-11] MEDS: PRENATAL VITAMINS W/ FOLIC ACID TABLET (FP) PO SCH (10:04)
[2022-06-11] MEDS: hydrOXYzine PAMOATE 25 MG CAPSULE (FP) PO PRN (12:03)
[2022-06-11] MEDS ORDERED: SUVOREXANT 5 MG TABLET PO PRN (22:00)
[2022-06-11] MEDS: THIAMINE HCL 100 MG TABLET (FP) PO SCH (22:01)
[2022-06-12] MEDS: diazePAM 5 MG TABLET PO PRN ×3 (02:21→10:54)
[2022-06-12] MEDS: METHOCARBAMOL 500 MG TABLET PO PRN ×2 (02:22→10:38)
[2022-06-12] MEDS: VITAMINS A AND D TOPICAL OINTMENT 60 GM TUBE TP SCH (06:19)
[2022-06-12 09:59] VITALS: BP 100/66; PULSE 108; RESP 18; TEMP 97.8
[2022-06-12] MEDS: NICOTINE 14 MG/24 HOURS TOPICAL PATCH TD SCH (10:38)
[2022-06-12] MEDS: PRENATAL VITAMINS W/ FOLIC ACID TABLET (FP) PO SCH (10:38)
[2022-06-12] MEDS ORDERED: SUVOREXANT 10 MG TABLET PO PRN (22:00)
== END 2022-06-12 10:58 | disposition other institution (70) | DRG 773 ==
LOC: YASAS 09:42 → UNDOADMIN 11:11 → Y3N 11:11
PROVIDERS: ADMIT Allergy & Immunology; ATTEND Surgery
PROC: HZ2ZZZZ Detoxification Services for Substance Abuse Treatment (ICD-10-PCS; principal; 2022-06-06)
DX: F11.23 Opioid dependence with withdrawal (principal); F14.20 Cocaine dependence, uncomplicated; F12.20 Cannabis dependence, uncomplicated; F17.210 Nicotine dependence, cigarettes, uncomplicated; F19.282 Other psychoactive substance dependence with psychoactive substance-induced sleep disorder; G47.00 Insomnia, unspecified
CPT/HCPCS: 36415; 80053; 85027; 86780; C9803-CS; G0008; Q2036; U0003; U0005

== ENCOUNTER 2022-06-12 10:57 | Inpatient (IN) | payer OTHER ==
[2022-06-12] MEDS ORDERED: MAG HYDROX/AL HYDROX/SIMETH 30 ML UNIT-DOSE CUP PO PRN (11:18)
[2022-06-12] MEDS ORDERED: hydrOXYzine PAMOATE 25 MG CAPSULE (FP) PO PRN (11:18)
[2022-06-12] MEDS ORDERED: NICOTINE POLACRILEX 2 MG GUM BUC PRN (11:18)
[2022-06-12] MEDS ORDERED: MAGNESIUM HYDROX 2400MG/30ML ORAL SUSPENSION 30 ML CUP PO PRN (11:18)
[2022-06-12] MEDS ORDERED: LOPERAMIDE HCL 2 MG CAPSULE PO PRN (11:18)
[2022-06-12] MEDS ORDERED: NICOTINE 10 MG CARTRIDGE (INHALER) IH PRN (11:18)
[2022-06-12] MEDS ORDERED: guaiFENesin 200 MG/10 ML 10 ML UNIT-DOSE CUPS PO PRN (11:18)
[2022-06-12] MEDS ORDERED: BENZOCAINE/MENTHOL (CHLORASEPTIC ) LOZENGE MM PRN (11:18)
[2022-06-12] MEDS ORDERED: MAGNESIUM CITRATE 300 ML BOTTLE PO PRN (11:18)
[2022-06-12] MEDS ORDERED: P-EPHED 60MG/TRIPROLIDI 2.5MG TABLET PO PRN (11:18)
[2022-06-12] MEDS ORDERED: NALOXONE (NARCAN) HCL 4 MG/0.1 ML SPRAY NS PRN (11:20)
[2022-06-12] MEDS ORDERED: TUBERCULIN PPD 5 TU/0.1ML VIAL ID ONE (11:53)
[2022-06-12] MEDS: hydrOXYzine PAMOATE 50 MG CAPSULE (FP) PO PRN ×2 (13:41→21:24)
[2022-06-12] MEDS: METHOCARBAMOL 500 MG TABLET PO PRN ×2 (14:55→21:24)
[2022-06-12] MEDS: THIAMINE HCL 100 MG TABLET (FP) PO SCH (21:23)
[2022-06-12] MEDS: SUVOREXANT 20 MG TABLET PO PRN (21:25)
[2022-06-12] MEDS ORDERED: MELATONIN 5 MG TABLETS PO SCH (22:00)
[2022-06-13] MEDS: METHOCARBAMOL 500 MG TABLET PO PRN ×3 (05:14→21:10)
[2022-06-13] MEDS: hydrOXYzine PAMOATE 50 MG CAPSULE (FP) PO PRN ×3 (09:18→21:10)
[2022-06-13] MEDS: PRENATAL VITAMINS W/ FOLIC ACID TABLET (FP) PO SCH (09:53)
[2022-06-13] MEDS: NICOTINE 7 MG/24 HOURS TOPICAL PATCH TD PRN (10:26)
[2022-06-13] MEDS: THIAMINE HCL 100 MG TABLET (FP) PO SCH (21:09)
[2022-06-13] MEDS: SUVOREXANT 20 MG TABLET PO PRN (21:10)
[2022-06-14] MEDS: METHOCARBAMOL 500 MG TABLET PO PRN ×3 (06:13→21:06)
[2022-06-14] MEDS: hydrOXYzine PAMOATE 50 MG CAPSULE (FP) PO PRN ×2 (10:31→18:56)
[2022-06-14] MEDS: PRENATAL VITAMINS W/ FOLIC ACID TABLET (FP) PO SCH (10:31)
[2022-06-14] MEDS: IBUPROFEN 400 MG TABLET (FP) PO PRN (13:42)
[2022-06-14] MEDS: THIAMINE HCL 100 MG TABLET (FP) PO SCH (21:04)
[2022-06-14] MEDS: SUVOREXANT 10 MG TABLET PO PRN (21:05)
[2022-06-15] MEDS: hydrOXYzine PAMOATE 50 MG CAPSULE (FP) PO PRN ×3 (00:45→18:44)
[2022-06-15] MEDS: METHOCARBAMOL 500 MG TABLET PO PRN ×2 (07:51→18:43)
[2022-06-15] MEDS: PRENATAL VITAMINS W/ FOLIC ACID TABLET (FP) PO SCH (09:37)
[2022-06-15] MEDS: THIAMINE HCL 100 MG TABLET (FP) PO SCH (21:02)
[2022-06-15] MEDS: traZODone HCL 50 MG TABLET (FP) PO SCH (21:03)
[2022-06-15] MEDS: SUVOREXANT 10 MG TABLET PO PRN (21:03)
[2022-06-16] MEDS: METHOCARBAMOL 500 MG TABLET PO PRN ×2 (06:13→18:04)
[2022-06-16] MEDS: hydrOXYzine PAMOATE 50 MG CAPSULE (FP) PO PRN ×3 (06:14→18:04)
[2022-06-16] MEDS: PRENATAL VITAMINS W/ FOLIC ACID TABLET (FP) PO SCH (09:41)
[2022-06-16] MEDS: NICOTINE 7 MG/24 HOURS TOPICAL PATCH TD PRN (09:42)
[2022-06-16] MEDS: IBUPROFEN 400 MG TABLET (FP) PO PRN (15:34)
[2022-06-16] MEDS: traZODone HCL 50 MG TABLET (FP) PO SCH (21:02)
[2022-06-16] MEDS: SUVOREXANT 10 MG TABLET PO PRN (21:03)
[2022-06-16] MEDS: THIAMINE HCL 100 MG TABLET (FP) PO SCH (21:03)
[2022-06-17] MEDS: METHOCARBAMOL 500 MG TABLET PO PRN ×2 (06:16→21:05)
[2022-06-17] MEDS: hydrOXYzine PAMOATE 50 MG CAPSULE (FP) PO PRN ×3 (06:16→21:05)
[2022-06-17 06:38] VITALS: RESP 18
[2022-06-17] MEDS: PRENATAL VITAMINS W/ FOLIC ACID TABLET (FP) PO SCH (10:10)
[2022-06-17] MEDS: ACETAMINOPHEN 325 MG TABLET (FP) PO PRN (12:28)
[2022-06-17] MEDS: traZODone HCL 50 MG TABLET (FP) PO SCH (21:04)
[2022-06-17] MEDS: SUVOREXANT 20 MG TABLET PO PRN (21:05)
[2022-06-17] MEDS: THIAMINE HCL 100 MG TABLET (FP) PO SCH (21:06)
[2022-06-18] MEDS: METHOCARBAMOL 500 MG TABLET PO PRN ×2 (06:19→18:25)
[2022-06-18] MEDS: hydrOXYzine PAMOATE 50 MG CAPSULE (FP) PO PRN ×3 (06:19→21:04)
[2022-06-18 06:39] VITALS: BP 120/86; PULSE 107; TEMP 97.1
[2022-06-18] MEDS: PRENATAL VITAMINS W/ FOLIC ACID TABLET (FP) PO SCH (09:50)
[2022-06-18] MEDS: ACETAMINOPHEN 325 MG TABLET (FP) PO PRN (09:52)
[2022-06-18] MEDS: THIAMINE HCL 100 MG TABLET (FP) PO SCH (21:03)
[2022-06-18] MEDS: SUVOREXANT 20 MG TABLET PO PRN (21:04)
[2022-06-18] MEDS: traZODone HCL 50 MG TABLET (FP) PO SCH (21:04)
[2022-06-19] MEDS: hydrOXYzine PAMOATE 50 MG CAPSULE (FP) PO PRN (06:21)
[2022-06-19] MEDS: METHOCARBAMOL 500 MG TABLET PO PRN (06:21)
[2022-06-19] MEDS ORDERED: MULTIVITAMINS (DAILY MVI) TABLET (FP) PO SCH (10:00)
== END 2022-06-19 09:30 | disposition home or self-care (01) | DRG 772 ==
LOC: YASAS 10:57 → Y3E 10:58
PROVIDERS: ADMIT Allergy & Immunology; ATTEND Psychiatry & Neurology Pain Medicine
PROC: HZ42ZZZ Group Counseling for Substance Abuse Treatment, Cognitive-Behavioral (ICD-10-PCS; principal; 2022-06-12)
DX: F11.20 Opioid dependence, uncomplicated (principal); F10.20 Alcohol dependence, uncomplicated; F14.20 Cocaine dependence, uncomplicated; F17.210 Nicotine dependence, cigarettes, uncomplicated; F19.282 Other psychoactive substance dependence with psychoactive substance-induced sleep disorder
CPT/HCPCS: 93005; 93010